=== PATIENT | male | born 1965 | race Caucasian/White ===

== ENCOUNTER 2024-07-24 11:32 | Observation (INO) | payer OTHER ==
[2024-07-24 12:00] LABS: Absolute Neutrophil Ct (ANC) 5.18 x10^3/uL (1.78-5.38); BASOPHIL % 0.7 % (0.2-1.2); Basophil (Absolute #) 0.05 x10^3/uL (0.01-0.08); Eosinophil % 1.6 % (0.8-7.0); Eosinophil (Absolute #) 0.11 x10^3/uL (0.04-0.54); Hematocrit 35.4 % (40.1-51.0); Hemoglobin 11.4 g/dL (13.7-17.5); IMMATURE GRAN # 0.02 x10^3u/L (0.001-0.031); IMMATURE GRAN % 0.3 % (0.001-0.429); Lymphocyte (Absolute #) 1.05 x10^3/uL (1.32-3.57); Lymphocytes % 15.3 % (21.8-53.1); Mean Cell Volume 93.2 fL (79.0-92.2); Mean Corpuscular Hgb Concent. 32.2 g/dL (32.3-36.5); Mean Platelet Volume 10.6 fL (9.4-12.4); Monocyte (Absolute #) 0.47 x10^3/uL (0.30-0.82); Monocytes % 6.8 % (5.3-12.2); Neutrophil % 75.3 % (34.0-67.9); Platelet Count 199 x10^3/uL (163-337); Red Cell Distribution Width 13.9 % (11.6-14.4); White Blood Count 6.9 x10^3/uL (4.23-9.07)
--- NOTE | 2024-07-24 12:08 | ERPHSYRPT ---
- History of Present Illness Time Seen by Provider: 07/24/24 12:00 Source: patient Exam Limitations: no limitations Patient Subjective Stated Complaint: PT states "I have been short of breath for a couple weeks. IT feels like my lungs are filling with fluid." Triage Nursing Assessment: Pt presented alert and oriented X 3, skin pwd. PT ambulates with an upright steady gait, able to speak in clear full sentencs. PT gets short of breath when he speaks or ambulates. Physician History: 59-year-old male with a history of CHF presents to our ED for evaluation of progressive shortness of breath that has been ongoing for approximately 1 week. No chest pain. No nausea no vomiting no diaphoresis. No trauma no fever. He does not know the name of his plc engineer. However reports his plc engineer is at [facility]. Patient symptoms have been progressive. Symptoms are moderate in intensity. Shortness of breath worse with exertion. Patient believes he is experiencing a COPD exacerbation. Patient otherwise feels well. He voices no other complaints or concerns at this time. Portions of this note were created with voice recognition technology. There may be grammatical, spelling, punctuation or sound alike errors Timing/Duration: week(s) (1 week) Severity: moderate Modifying Factors: Improves With: nothing Associated Symptoms: shortness of breath, chest pain, No nausea, No vomiting, No fever, No syncope Allergies/Adverse Reactions: No Known Drug Allergies Allergy (Verified 07/24/24 11:39) Home Medications: No Reportable Medications [No Reported Medications] 07/24/24 [History] Hx Tetanus, Diphtheria Vaccination/Date Given: No Hx Influenza Vaccination/Date Given: No Hx Pneumococcal Vaccination/Date Given: No Immunizations Up to Date: No Travel Risk - International Travel Have you traveled outside of the country in past 3 weeks: No - Emerging Infectious Disease Are you exhibiting symptoms associated with any current EIDs: Yes Symptoms: Shortness of Breath - Review of Systems Constitutional: No Symptoms, No Fever, No Chills Eyes: No Symptoms Ears, Nose, & Throat: No Symptoms Respiratory: No Symptoms, No Cough, No Dyspnea Cardiac: No Symptoms, No Chest Pain, No Edema, No Syncope Abdominal/Gastrointestinal: No Symptoms, No Abdominal Pain, No Nausea, No Vomiting, No Diarrhea Genitourinary Symptoms: No Symptoms, No Dysuria Musculoskeletal: No Symptoms, No Back Pain, No Neck Pain Skin: No Symptoms, No Rash Neurological: No Symptoms, No Dizziness, No Focal Weakness, No Sensory Changes Psychological: No Symptoms Endocrine: No Symptoms Hematologic/Lymphatic: No Symptoms Immunological/Allergic: No Symptoms All Other Systems: Reviewed and Negative - Past Medical History Pertinent Past Medical History: Yes Neurological History: No Pertinent History ENT History: No Pertinent History Cardiac History: Arrhythmia, Other Respiratory History: No Pertinent History Endocrine Medical History: No Pertinent History Musculoskeletal History: Degenerative Disk Disease GI Medical History: No Pertinent History History: No Pertinent History Psycho-Social History: No Pertinent History Male Reproductive Disorders: No Pertinent History Other Medical History: chf - Past Surgical History Past Surgical History: Yes Other Surgical History: right knee. left leg - Social History Smoking Status: Current some day smoker How long have you smoked: years Exposure to second hand smoke: Yes Drug Use: none - Social Determinants of Health Will the patient participate in the screening: Yes Do you worry about a steady place to live?: No Do you have any problems with any of the following?: No known problems In the past 12 months,have you had to go without utilities?: Yes Transportation Issues: No Has anyone in your support network made you feel unsafe?: No Have you or anyone in your house had to go without enough: No - Nursing Vital Signs Nursing Vital Signs: Initial Vital Signs Pulse Rate 114 H 07/24/24 11:31 Respiratory Rate 23 07/24/24 11:31 Blood Pressure 107/75 07/24/24 11:31 O2 Sat by Pulse Oximetry 89 L 07/24/24 11:31 Pain Scale Pain Intensity 0 - Physical Exam General Appearance: no apparent distress, alert Eye Exam: PERRL/EOMI, eyes nml inspection Ears, Nose, Throat Exam: normal ENT inspection, moist mucous membranes Neck Exam: normal inspection, non-tender, supple, full range of motion Respiratory Exam: normal breath sounds, respiratory distress, airway intact, diminished breath sounds, other (Tachypnea) Cardiovascular Exam: regular rate/rhythm, normal heart sounds, normal peripheral pulses Gastrointestinal/Abdomen Exam: soft, normal bowel sounds, No tenderness, No mass Back Exam: normal inspection, normal range of motion, No CVA tenderness, No vertebral tenderness Extremity Exam: normal inspection, normal range of motion, pelvis stable, pedal edema (1+ pitting edema) Neurologic Exam: alert, oriented x 3, cooperative, normal mood/affect, sensation nml, No motor deficits Skin Exam: normal color, warm, dry, No rash Lymphatic Exam: No adenopathy SpO2 Interpretation: normal SpO2: 97 O2 Delivery: Room Air - Course Nursing assessment & vital signs reviewed: Yes EKG Interpreted by Me: RATE ([id number]), Sinus Tach, NORMAL AXIS, NORMAL INTERVALS, NORMAL QRS - Radiology Exams Chest X-ray Interpretation: Teleradiologist Report (Pulmonary edema) Ordered Tests: Active Orders 24 hr Category Date Time Status Postal Worker STAT Care 07/24/24 11:51 Active EKG-ER Only STAT Care 07/24/24 11:51 Active IV Insertion STAT Care 07/24/24 11:51 Active Pulse Oximetry (ED) STAT Care 07/24/24 11:51 Active CHEST 1 VIEW (PORTABLE) Stat Exams 07/24/24 11:57 Completed CHEST WITH CONTRAST [CT] Stat Exams 07/24/24 12:40 Completed BLOOD CULTURE Stat Lab 07/24/24 15:04 Received CBC W DIFF Stat Lab 07/24/24 11:59 Completed CMP Stat Lab 07/24/24 11:59 Completed D-DIMER QUANTITATIVE Stat Lab 07/24/24 11:59 Completed NT PRO BNPII Stat Lab 07/24/24 11:59 Completed TROPONIN Q4H Lab 07/24/24 11:59 Completed TROPONIN Q4H Lab 07/24/24 14:40 Completed TROPONIN Q4H Lab 07/24/24 20:00 Ordered Respiratory Therapy Assessment DAILY RT 07/24/24 14:58 Completed Transfer Order Routine Transfer 07/24/24 Ordered Medication Summary Discontinued Medications Generic Name Dose Route Start Last Admin Trade Name Brennanq PRN Reason Stop Dose Admin Albuterol Sulfate 2.5 mg 07/24/24 14:46 07/24/24 14:57 Albuterol Sulfate 2.5 Mg/3 Ml Neb IH 07/24/24 14:47 2.5 mg STAT ONE Administration Albuterol Sulfate Confirm 07/24/24 14:53 Albuterol Sulfate 2.5 Mg/3 Ml Neb Administered 07/24/24 14:54 Dose 2.5 mg IH .STK-MED ONE Methylprednisolone Sodium 0 mg 07/24/24 14:46 07/24/24 14:54 Succinate 125 mg/ Sterile IV 07/24/24 14:47 125 mg Water 2 ml STAT ONE Administration Furosemide 20 mg 07/24/24 12:39 07/24/24 12:57 Furosemide 20 Mg/Vial IV 07/24/24 12:40 20 mg ONCE STA Administration Furosemide Confirm 07/24/24 12:56 Furosemide 20 Mg/Vial Administered 07/24/24 12:57 Dose 20 mg .ROUTE .STK-MED ONE Ceftriaxone Sodium 1 gm in 100 mls @ 200 mls/hr 07/24/24 14:46 07/24/24 15:29 Rocephin 1 Gm / 100 Ml Nacl IV 07/24/24 15:15 Infused STAT ONE Infusion Azithromycin 500 mg in 250 mls @ 250 mls/hr 07/24/24 14:46 07/24/24 15:39 Zithromax 500 Mg/ 250 Ml Nacl Premix IV 07/24/24 15:45 250 ml/hr STAT STA 250 mls/hr Administration Ceftriaxone Sodium Confirm 07/24/24 14:53 Rocephin 1 Gm / 100 Ml Nacl Administered 07/24/24 14:54 Dose 1 gm in 100 mls @ ud IV .STK-MED ONE Azithromycin Confirm 07/24/24 15:36 Zithromax 500 Mg/ 250 Ml Nacl Premix Administered 07/24/24 15:37 Dose 500 mg in 250 mls @ ud IV .STK-MED ONE Methylprednisolone Sodium Succinate Confirm 07/24/24 14:53 Methylprednis Sod Succ 125 Mg/2 Ml Vial Administered 07/24/24 14:54 Dose 125 mg .ROUTE .STK-MED ONE Sterile Water Confirm 07/24/24 14:53 Water For Injection,Sterile 10 Ml Vial Administered 07/24/24 14:54 Dose 10 ml IJ .STK-MED ONE Lab/Rad Data: Laboratory Result Diagrams 07/24/24 11:59 07/24/24 11:59 Laboratory Results 07/24/24 07/24/24 07/24/24 Range/Units 14:40 11:59 11:59 WBC (4.23-9.07) x10^3/uL RBC (4.63-6.08) x10^6/uL Hgb (13.7-17.5) g/dL Hct (40.1-51.0) % MCV (79.0-92.2) fL MCH (25.7-32.2) pg MCHC (32.3-36.5) g/dL RDW (11.6-14.4) % Plt Count (163-337) x10^3/uL MPV (9.4-12.4) fL Gran % (34.0-67.9) % Immature Gran % (Auto) (0.001-0.429) % Nucleat RBC Rel Count (0.00-0.2) % Eos # (Auto) (0.04-0.54) x10^3/uL Immature Gran # (Auto) (0.001-0.031) x10^3u/L Absolute Lymphs (auto) (1.32-3.57) x10^3/uL Absolute Monos (auto) (0.30-0.82) x10^3/uL Absolute Nucleated RBC (0.00-0.012) x10^3u/L Lymphocytes % (21.8-53.1) % Monocytes % (5.3-12.2) % Eosinophils % (0.8-7.0) % Basophils % (0.2-1.2) % Absolute Granulocytes (1.78-5.38) x10^3/uL Basophils # (0.01-0.08) x10^3/uL D-Dimer 1.50 H* (0.0-0.50) mg/L Sodium (135-145) mmol/L Potassium (3.5-5.1) mmol/L Chloride (98-107) mmol/L Carbon Dioxide (22-30) mmol/L Anion Gap (5-15) MEQ/L BUN (9-20) mg/dL Creatinine (0.66-1.25) mg/dL Estimated GFR ML/MIN Glucose (74-106) mg/dL Calcium (8.4-10.2) mg/dL Total Bilirubin (0.2-1.3) mg/dL AST (17-59) U/L ALT (0-50) U/L Alkaline Phosphatase (38-126) U/L Troponin I 0.045 H* 0.038 H* (0.000-0.033) ng/mL NT-Pro-B Natriuret Pep 7510 (<300) pg/mL Serum Total Protein (6.3-8.2) g/dL Albumin (3.5-5.0) g/dL 07/24/24 07/24/24 Range/Units 11:59 11:59 WBC 6.9 (4.23-9.07) x10^3/uL RBC 3.80 L (4.63-6.08) x10^6/uL Hgb 11.4 L (13.7-17.5) g/dL Hct 35.4 L (40.1-51.0) % MCV 93.2 H (79.0-92.2) fL MCH 30.0 (25.7-32.2) pg MCHC 32.2 L (32.3-36.5) g/dL RDW 13.9 (11.6-14.4) % Plt Count 199 (163-337) x10^3/uL MPV 10.6 (9.4-12.4) fL Gran % 75.3 H (34.0-67.9) % Immature Gran % (Auto) 0.3 (0.001-0.429) % Nucleat RBC Rel Count 0.0 (0.00-0.2) % Eos # (Auto) 0.11 (0.04-0.54) x10^3/uL Immature Gran # (Auto) 0.02 (0.001-0.031) x10^3u/L Absolute Lymphs (auto) 1.05 L (1.32-3.57) x10^3/uL Absolute Monos (auto) 0.47 (0.30-0.82) x10^3/uL Absolute Nucleated RBC 0.00 (0.00-0.012) x10^3u/L Lymphocytes % 15.3 L (21.8-53.1) % Monocytes % 6.8 (5.3-12.2) % Eosinophils % 1.6 (0.8-7.0) % Basophils % 0.7 (0.2-1.2) % Absolute Granulocytes 5.18 (1.78-5.38) x10^3/uL Basophils # 0.05 (0.01-0.08) x10^3/uL D-Dimer (0.0-0.50) mg/L Sodium 140 (135-145) mmol/L Potassium 4.5 (3.5-5.1) mmol/L Chloride 111 H (98-107) mmol/L Carbon Dioxide 24 (22-30) mmol/L Anion Gap 9.5 (5-15) MEQ/L BUN 16 (9-20) mg/dL Creatinine 0.99 (0.66-1.25) mg/dL Estimated GFR 88.3 ML/MIN Glucose 122 H (74-106) mg/dL Calcium 8.8 (8.4-10.2) mg/dL Total Bilirubin 0.40 (0.2-1.3) mg/dL AST 77 H (17-59) U/L ALT 79 H (0-50) U/L Alkaline Phosphatase 69 (38-126) U/L Troponin I (0.000-0.033) ng/mL NT-Pro-B Natriuret Pep (<300) pg/mL Serum Total Protein 6.0 L (6.3-8.2) g/dL Albumin 3.5 (3.5-5.0) g/dL - Progress Progress: improved Progress Note: 51-year-old male history of CHF presents to our ED for evaluation of progressive shortness of breath. Physical exam reveals a tachycardia of 116. Mild tachypnea. Diminished breath sounds bilaterally. Chest x-ray reveals pulmonary edema. Troponin 0.038 and 0.045. Patient refused COVID testing. D-dimer positive. CTA chest reveals pneumonia. Blood cultures obtained. Antibiotics administered. Breathing treatment administered as well. BNP elevated at 7000. Patient received Lasix IV. Patient reassessed. Tachypnea resolved he is breathing much easier. Patient will require hospitalization for further evaluation and treatment. Plan of care discussed with patient. He agrees to admission to [facility] for further evaluation and treatment. Management discussed with hospitalist Dr. Bedoya who accepts admission to observation at 3:40 PM. Blood pressure was slightly low at 101. Lasix administered however we held nitroglycerin. Portions of this note were created with voice recognition technology. There may be grammatical, spelling, punctuation or sound alike errors Complexity of problem addressed is moderate acute complicated. No critical care time. Complex of data reviewed and analyzed is extensive. Test ordered test reviewed results analyzed and correlated clinically with history and physical exam. Management discussed with hospitalist who accepts admission to observation. Risk of complication and or risk of morbidity/mortality of patient management is high. Patient requires hospitalization for further evaluation and treatment. Vital stable. Time spent admit patient approximately 15 minutes. Plan of care established for shared decision making. No social determinants of health present to impede follow-up. Portions of this note were created with voice recognition technology. There may be grammatical, spelling, punctuation or sound alike errors 07/24/24 15:48 07/24/24 15:54 Will see patient in: other ([place] at 3:40p) Counseled pt/family regarding: lab results, diagnosis, rad results - Departure Departure Disposition: Observation Clinical Impression: SOB (shortness of breath), Pulmonary edema, CHF (congestive heart failure), Tachycardia, Elevated troponin, Pneumonia Condition: Stable Critical Care Time: No Referrals: DOCTOR,NO FAMILY [Primary Care Provider] - Follow up/PCP as directed Instructions: Heart Failure
[2024-07-24 12:13] LABS: ALBUMIN 3.5 g/dL (3.5-5.0); ANION GAP 9.5 MEQ/L (5-15); BILIRUBIN,TOTAL 0.4 mg/dL (0.2-1.3); Calcium 8.8 mg/dL (8.4-10.2); Creatinine 1 0.99 mg/dL (0.66-1.25); EST GLOMERULAR FILTRATION RATE 88.3 ML/MIN; Potassium 4.5 mmol/L (3.5-5.1)
--- NOTE | 2024-07-24 12:23 | XRAY ---
Indication: Short of breath. Comparison: None Portable chest demonstrates mild pulmonary edema without focal infiltrate, consolidation, or large effusion. Heart not enlarged. Bony thorax intact with osteopenia and mild degenerative changes.
[2024-07-24 12:56] LABS: TROPONIN 0.038 ng/mL (0.000-0.033)
[2024-07-24] MEDS ORDERED: Lasix 20 MG/2 ML ONE (12:56)
[2024-07-24] MEDS: Lasix 20 MG/2 ML IV STA (12:57)
--- NOTE | 2024-07-24 14:45 | XRAY ---
Indication: Short of breath. Tachycardia. Elevated d-dimer. Multiple contiguous axial images obtained through the chest using 80 cc Isovue 370 contrast and PE protocol. Comparison: None Good opacification pulmonary arteries including lobar and segmental branches. No pulmonary embolus. Heart not enlarged. Aorta is normal in course and caliber. No pathologic mediastinal/hilar lymphadenopathy. Lungs demonstrates mild diffuse bilateral patchy groundglass airspace disease with small bilateral effusions and bibasilar compressive atelectasis. Bony thorax intact with mild degenerative changes throughout the spine. Limited upper abdomen is unremarkable. Impression: 1. Negative pulmonary embolus. 2. Mild diffuse bilateral patchy groundglass airspace disease with bilateral effusions.
[2024-07-24] MEDS ORDERED: solu-MEDROL ONE (14:53)
[2024-07-24] MEDS ORDERED: Sterile H2O 10 ml IJ ONE (14:53)
[2024-07-24] MEDS ORDERED: PROVENTIL 2.5 MG/3 ML NEB IH ONE (14:53)
[2024-07-24] MEDS ORDERED: ROCEPHIN 1 GM / 100 ML NaCl 1 GM/100 ML IVPB IV ONE (14:53)
[2024-07-24] MEDS: solu-MEDROL 125 MG, Sterile H2O 10 ml 2 ML IV ONE (14:54)
[2024-07-24] MEDS: ROCEPHIN 1 GM / 100 ML NaCl 1 GM/100 ML IVPB IV ONE (14:56)
[2024-07-24] MEDS: PROVENTIL 2.5 MG/3 ML NEB IH ONE (14:57)
[2024-07-24] MEDS ORDERED: Zithromax 500 MG/ 250 ML NaCl Premix 500 MG/250 ML IVPB IV ONE (15:36)
[2024-07-24] MEDS: Zithromax 500 MG/ 250 ML NaCl Premix 500 MG/250 ML IVPB IV STA (15:39)
--- NOTE | 2024-07-24 16:18 | PCM.HP ---
History of Present Illness - Chief Complaint Chief Complaint: Pneumonia, CHF Date: 07/24/24 History of Present Illness: Mr. Mejia is a 59 year old male with a pmhx of tobacco abuse, AFIB (s/p ablation), DDD, and CHF who presented to ED 07/24/24 with complaints of progr essive shortness of breath, chest congestion, productive cough with blood-tinged sputum, and wheezing. Onset about two weeks ago. He also reports left sided chest pressure 4/10 on numerical pain scale. No radiation. No associated symptoms. No relieving/aggravating factors. Denies fever,abdominal pain, DUVALL, dizziness, N/V/D. Upon arrival to ED, patient tachypneic, tachycardic, and hypoxic. EKG with sinus tachycardia HR at 116. CT chest demonstrates mild diffuse bilateral patchy groundglass airspace disease with bilateral effusions. Negative for PE. Lab findings remarkable for elevated ddimer (CTA negative for PE), macrocytic anemia with hgb at 11.4, elevated AST and ALT, and uptrending tropinin I 0.045>0.038. BNP 7510. Patient admitted for CHF and COPD exacerbation and pneumonia. Given ceftriaxone,azithromycin, lasix, and solumedrol in ED. Plan for continued diuresis, abx, and steroids. - Review of Systems Constitutional: Weakness Eyes: No Symptoms Respiratory: Short Of Breath, Wheezing Cardiac: Chest Pain, Edema (BLE 2+Pitting ) Abdominal/Gastrointestinal: No Symptoms Genitourinary Symptoms: No Symptoms Musculoskeletal: No Symptoms Skin: No Symptoms Neurological: No Symptoms Psychological: No Symptoms Endocrine: No Symptoms Hematologic/Lymphatic: No Symptoms Immunological/Allergic: No Symptoms Medications & Allergies Home Medications: Home Medication List No Reportable Medications [No Reported Medications] 07/24/24 [History Confirmed 07/24/24] Allergies/Adverse Reactions: Allergies Allergy/AdvReac Type Severity Reaction Status Date / Time No Known Drug Allergies Allergy Verified 07/24/24 11:39 - Past Medical History Past Medical History: Yes Neurological History: No Pertinent History ENT History: No Pertinent History Cardiac History: Arrhythmia (AFIB), Congestive Heart Failure, Other Respiratory History: No Pertinent History Endocrine Medical History: No Pertinent History Musculoskelatal History: Degenerative Disk Disease GI Medical History: No Pertinent History History: No Pertinent History Pyscho-Social History: No Pertinent History Male Reproductive Disorders: No Pertinent History Comment: chf - Past Surgical History Past Surgical History: Yes Cardiac History: Other (cardiac ablation - cardioversion x 2 both in 2022) Other Surgical History: right knee. left leg - Social History Smoking Status: Current some day smoker How long have you smoked: years Exposure to second hand smoke: Yes Alcohol: Occasionally Drug Use: none - Social Determinants of Health Will the patient participate in the screening: Yes Do you worry about a steady place to live?: No Do you have any problems with any of the following?: No known problems In the past 12 months,have you had to go without utilities?: Yes Have you or anyone in your house had to go without enough: No Transportation Issues: No Has anyone in your support network made you feel unsafe?: No - Physical Exam Vital Signs: Vital Signs - 24 hr Temp Pulse Resp BP BP Pulse Ox 07/24/24 15:54 97 07/24/24 15:30 108 H 19 103/66 07/24/24 15:15 115 H 27 H 103/81 07/24/24 15:00 113 H 23 100/72 07/24/24 14:59 98 H 16 98 07/24/24 14:46 104 H 16 104/80 07/24/24 14:30 104 H 13 96/73 99 07/24/24 14:15 112 H 24 98/75 98 07/24/24 14:09 116 H 30 H 99/66 98 07/24/24 14:08 116 H 19 07/24/24 13:45 90/69 07/24/24 13:30 120 H 25 H 96/57 07/24/24 13:15 121 H 23 98/83 07/24/24 13:01 121 H 27 H 106/83 07/24/24 12:45 119 H 25 H 103/80 07/24/24 12:30 121 H 19 102/78 96 07/24/24 12:15 118 H 26 H 105/73 95 07/24/24 12:00 119 H 15 99/74 97 07/24/24 11:46 115 H 23 101/76 97 07/24/24 11:33 97.8 F 117 H 24 107/75 96 07/24/24 11:31 114 H 23 107/75 89 L General Appearance: no apparent distress Neurologic Exam: alert, oriented x 3, cooperative Eye Exam: PERRL/EOMI Ears, Nose, Throat Exam: normal ENT inspection Neck Exam: normal inspection Respiratory Exam: crackles/rales, wheezing Cardiovascular Exam: tachycardia Gastrointestinal/Abdomen Exam: soft, normal bowel sounds Rectal Exam: deferred Back Exam: normal inspection Extremity Exam: swelling (BLE 2+ pitting edema) Results - Labs Lab/Micro Results: Lab Results-Last 24 Hours 07/24/24 07/24/24 07/24/24 Range/Units 11:59 11:59 11:59 WBC 6.9 (4.23-9.07) x10^3/uL RBC 3.80 L (4.63-6.08) x10^6/uL Hgb 11.4 L (13.7-17.5) g/dL Hct 35.4 L (40.1-51.0) % MCV 93.2 H (79.0-92.2) fL MCH 30.0 (25.7-32.2) pg MCHC 32.2 L (32.3-36.5) g/dL RDW 13.9 (11.6-14.4) % Plt Count 199 (163-337) x10^3/uL MPV 10.6 (9.4-12.4) fL Gran % 75.3 H (34.0-67.9) % Immature Gran % (Auto) 0.3 (0.001-0.429) % Nucleat RBC Rel Count 0.0 (0.00-0.2) % Eos # (Auto) 0.11 (0.04-0.54) x10^3/uL Immature Gran # (Auto) 0.02 (0.001-0.031) x10^3u/L Absolute Lymphs (auto) 1.05 L (1.32-3.57) x10^3/uL Absolute Monos (auto) 0.47 (0.30-0.82) x10^3/uL Absolute Nucleated RBC 0.00 (0.00-0.012) x10^3u/L Lymphocytes % 15.3 L (21.8-53.1) % Monocytes % 6.8 (5.3-12.2) % Eosinophils % 1.6 (0.8-7.0) % Basophils % 0.7 (0.2-1.2) % Absolute Granulocytes 5.18 (1.78-5.38) x10^3/uL Basophils # 0.05 (0.01-0.08) x10^3/uL D-Dimer 1.50 H* (0.0-0.50) mg/L Sodium 140 (135-145) mmol/L Potassium 4.5 (3.5-5.1) mmol/L Chloride 111 H (98-107) mmol/L Carbon Dioxide 24 (22-30) mmol/L Anion Gap 9.5 (5-15) MEQ/L BUN 16 (9-20) mg/dL Creatinine 0.99 (0.66-1.25) mg/dL Estimated GFR 88.3 ML/MIN Glucose 122 H (74-106) mg/dL Calcium 8.8 (8.4-10.2) mg/dL Total Bilirubin 0.40 (0.2-1.3) mg/dL AST 77 H (17-59) U/L ALT 79 H (0-50) U/L Alkaline Phosphatase 69 (38-126) U/L Troponin I (0.000-0.033) ng/mL NT-Pro-B Natriuret Pep (<300) pg/mL Serum Total Protein 6.0 L (6.3-8.2) g/dL Albumin 3.5 (3.5-5.0) g/dL 07/24/24 07/24/24 Range/Units 11:59 14:40 WBC (4.23-9.07) x10^3/uL RBC (4.63-6.08) x10^6/uL Hgb (13.7-17.5) g/dL Hct (40.1-51.0) % MCV (79.0-92.2) fL MCH (25.7-32.2) pg MCHC (32.3-36.5) g/dL RDW (11.6-14.4) % Plt Count (163-337) x10^3/uL MPV (9.4-12.4) fL Gran % (34.0-67.9) % Immature Gran % (Auto) (0.001-0.429) % Nucleat RBC Rel Count (0.00-0.2) % Eos # (Auto) (0.04-0.54) x10^3/uL Immature Gran # (Auto) (0.001-0.031) x10^3u/L Absolute Lymphs (auto) (1.32-3.57) x10^3/uL Absolute Monos (auto) (0.30-0.82) x10^3/uL Absolute Nucleated RBC (0.00-0.012) x10^3u/L Lymphocytes % (21.8-53.1) % Monocytes % (5.3-12.2) % Eosinophils % (0.8-7.0) % Basophils % (0.2-1.2) % Absolute Granulocytes (1.78-5.38) x10^3/uL Basophils # (0.01-0.08) x10^3/uL D-Dimer (0.0-0.50) mg/L Sodium (135-145) mmol/L Potassium (3.5-5.1) mmol/L Chloride (98-107) mmol/L Carbon Dioxide (22-30) mmol/L Anion Gap (5-15) MEQ/L BUN (9-20) mg/dL Creatinine (0.66-1.25) mg/dL Estimated GFR ML/MIN Glucose (74-106) mg/dL Calcium (8.4-10.2) mg/dL Total Bilirubin (0.2-1.3) mg/dL AST (17-59) U/L ALT (0-50) U/L Alkaline Phosphatase (38-126) U/L Troponin I 0.038 H* 0.045 H* (0.000-0.033) ng/mL NT-Pro-B Natriuret Pep 7510 (<300) pg/mL Serum Total Protein (6.3-8.2) g/dL Albumin (3.5-5.0) g/dL - Radiology Impressions Radiology Exams & Impressions: Radiology Procedures Category Date Time Status CHEST 1 VIEW (PORTABLE) Stat Exams 07/24/24 11:57 Completed CHEST WITH CONTRAST [CT] Stat Exams 07/24/24 12:40 Completed Assessment/Plan (1) Pneumonia Current Visit: Yes Status: Acute Assessment & Plan: -CT with mild diffuse bilateral patchy groundglass airspace disease with bilateral effusions. Negative for PE -Supplemental oxygen with goal spo2 > 91% -baseline RA - currently RA -RT eval -DuoNebs/INH-solumedrol -ceftriaxone and azithromycin started in ED, will continue -WBC WNL -procal -blood cultures pending -pt refused respiratory viral panel Code(s): J18.9 - PNEUMONIA, UNSPECIFIED ORGANISM (2) Acute respiratory failure with hypoxia Current Visit: Yes Status: Acute Assessment & Plan: -2/2 to pneumonia - see plan above Code(s): J96.01 - ACUTE RESPIRATORY FAILURE WITH HYPOXIA (3) Chest pain Current Visit: Yes Status: Acute Assessment & Plan: -EKG with sinus tachycardia -trops reviewed and uptrending -continue series -echo -repeat ekg in a.m. 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 -No echo on file - will obtain -BNP 7510 -Lasix 40mg bid -Daily weights/ elevate HOB -Strict I&O -optimize electrolytes -Cardiology consult- appreciate recs -Supplemental oxygen with goal spo2 > 91%- baseline RA Code(s): I50.9 - HEART FAILURE, UNSPECIFIED (5) Afib Current Visit: Yes Status: Acute Assessment & Plan: -s/p cardiac ablation -EKG with sinus tachycardia HR 112 -cardiology consult Code(s): I48.91 - UNSPECIFIED ATRIAL FIBRILLATION (6) Smoker Current Visit: Yes Status: Acute Assessment & Plan: -Advised cessation - nicotine patch Code(s): F17.200 - NICOTINE DEPENDENCE, UNSPECIFIED, UNCOMPLICATED (7) Elevated d-dimer Current Visit: Yes Status: Acute Assessment & Plan: -CTA negative for PE- may be secondary to CHF/COPD exacerbation Code(s): R79.89 - OTHER SPECIFIED ABNORMAL FINDINGS OF BLOOD CHEMISTRY (8) Anemia Current Visit: Yes Status: Acute Assessment & Plan: -Iron studies -Hgb reviewed at 11.4- will monitor Code(s): D64.9 - ANEMIA, UNSPECIFIED (9) Elevated LFTs Current Visit: Yes Status: Acute Assessment & Plan: -mild - monitor Code(s): R79.89 - OTHER SPECIFIED ABNORMAL FINDINGS OF BLOOD CHEMISTRY (10) Elevated troponin Current Visit: Yes Status: Acute Assessment & Plan: -Cardiology consulted - appreciate recs -Trops reviewed with uptrend VTE: lovenox PPI: protonix Dispo: 1-2 days Code(s): R79.89 - OTHER SPECIFIED ABNORMAL FINDINGS OF BLOOD CHEMISTRY Telemedicine Encounter - Telemedicine Encounter Telemedicine Encounter: "The entirety of this encounter was performed via Telemedicine" This visit was performed using real-time audio and video connection between my location and thepatients locationwith the assistance of a surrogateat the patients location. Written or verbal consent was obtained from the patient/guardian to perform this visit [facility]. Any patient questions regarding the telemedicine interaction were answered.
[2024-07-24] MEDS ORDERED: TYLENOL 325 MG PO PRN (17:00)
[2024-07-24] MEDS ORDERED: Xopenex 1.25 MG/0.5 ML UD NEBULE IH PRN (17:00)
[2024-07-24 17:29] LABS: Iron 37 ug/dL (49-181); Iron Saturation 11 % (20-39); TIBC 326 ug/dL (261-497)
[2024-07-24 18:29] LABS: Ferritin 43.1 ng/mL (17.9-464); Folate (Folic Acid) 10.4 ng/mL (2.76 - >20); TSH, 3RD Generation 0.807 mIU/L (0.470-4.680)
[2024-07-24] MEDS: Nicoderm CQ 21 MG TOP SCH (18:56)
[2024-07-24] MEDS: Lasix 40 MG/4 ML IV SCH (18:56)
[2024-07-24] MEDS: DELTASONE 20 MG PO SCH (21:29)
[2024-07-25 04:41] LABS: Absolute Neutrophil Ct (ANC) 10.63 x10^3/uL (1.78-5.38); Basophil (Absolute #) 0 x10^3/uL (0.01-0.08); Eosinophil (Absolute #) 0 x10^3/uL (0.04-0.54); Hemoglobin 12.7 g/dL (13.7-17.5); IMMATURE GRAN # 0.04 x10^3u/L (0.001-0.031); IMMATURE GRAN % 0.4 % (0.001-0.429); Lymphocyte (Absolute #) 0.44 x10^3/uL (1.32-3.57); Lymphocytes % 3.9 % (21.8-53.1); Mean Cell Volume 93.1 fL (79.0-92.2); Mean Corpuscular Hemoglobin 30.3 pg (25.7-32.2); Mean Corpuscular Hgb Concent. 32.6 g/dL (32.3-36.5); Mean Platelet Volume 10.4 fL (9.4-12.4); Monocyte (Absolute #) 0.27 x10^3/uL (0.30-0.82); Monocytes % 2.4 % (5.3-12.2); Neutrophil % 93.3 % (34.0-67.9); Platelet Count 232 x10^3/uL (163-337); Red Blood Count 4.19 x10^6/uL (4.63-6.08); Red Cell Distribution Width 13.7 % (11.6-14.4); White Blood Count 11.4 x10^3/uL (4.23-9.07)
[2024-07-25] MEDS ORDERED: Lasix 40 MG/4 ML ONE (05:00)
[2024-07-25 05:12] LABS: ANION GAP 10.7 MEQ/L (5-15); BILIRUBIN,TOTAL 0.6 mg/dL (0.2-1.3); Calcium 9.3 mg/dL (8.4-10.2); Creatinine 1 1.17 mg/dL (0.66-1.25); EST GLOMERULAR FILTRATION RATE 72.3 ML/MIN; Potassium 4.7 mmol/L (3.5-5.1)
--- NOTE | 2024-07-25 05:29 | PCM.NOTE ---
Date and Time: 07/25/24 0525 Subjective Assessment: HPI: Mr. Mejia is a 59 year old male with a pmhx of tobacco abuse, AFIB (s/p ablation), DDD, and CHF who presented to ED 07/24/24 with complaints of progressive shortness of breath, chest congestion, productive cough with blood- tinged sputum, and wheezing. Onset about two weeks ago. He also reports left s ided chest pressure 4/10 on numerical pain scale. No radiation. No associated symptoms. No relieving/aggravating factors. Denies fever,abdominal pain, DUVALL, dizziness, N/V/D. Upon arrival to ED, patient tachypneic, tachycardic, and hypoxic. EKG with sinus tachycardia HR at 116. CT chest demonstrates mild diffuse bilateral patchy groundglass airspace disease with bilateral effusions. Negative for PE. Lab findings remarkable for elevated ddimer (CTA negative for PE), macrocytic anemia with hgb at 11.4, elevated AST and ALT, and uptrending tropinin I 0.045>0.038. BNP 7510. Patient admitted for CHF and COPD exacerbation and pneumonia. Given ceftriaxone,azithromycin, lasix, and solumedrol in ED. Plan for continued diuresis, abx, and steroids. 07/25/24: Met with patient bedside. Endorses that he continues to have chest pressure. Dyspnea improved. On RA. HR > 110 consistently. Started digoxin. Cardiac consult pending. Echo pending. Plan for continued diuresis, abx, steroids. - Review of Systems Constitutional: Weakness Eyes: No Symptoms Ears, Nose, & Throat: No Symptoms Respiratory: No Symptoms Cardiac: Chest Pain Abdominal/Gastrointestinal: No Symptoms Genitourinary Symptoms: No Symptoms Musculoskeletal: No Symptoms Skin: No Symptoms Neurological: No Symptoms Psychological: No Symptoms Endocrine: No Symptoms Hematologic/Lymphatic: No Symptoms Immunological/Allergic: No Symptoms Objective Exam General Appearance: no apparent distress Neurologic Exam: alert, oriented x 3, cooperative Skin Exam: normal color Eye Exam: PERRL Ears, Nose, Throat Exam: normal ENT inspection Neck Exam: normal inspection Respiratory Exam: crackles/rales Cardiovascular Exam: tachycardia, irregular Gastrointestinal/Abdomen Exam: soft, normal bowel sounds Extremity Exam: normal inspection Back Exam: normal inspection Male Genitalia Exam: deferred Rectal Exam: deferred Objective Data Vital Signs: Vital Signs - 24 hr Temp Pulse Resp BP BP Pulse Ox 07/25/24 04:00 98.2 F 118 H 20 85/55 95 07/25/24 00:00 97.9 F 112 H 20 107/56 92 L 07/24/24 20:00 97.7 F 116 H 20 96/57 92 L 07/24/24 18:22 92 L 07/24/24 16:48 98.2 F 130 H 22 106/76 95 07/24/24 15:54 97 07/24/24 15:30 108 H 19 103/66 07/24/24 15:15 115 H 27 H 103/81 07/24/24 15:00 113 H 23 100/72 07/24/24 14:59 98 H 16 98 07/24/24 14:46 104 H 16 104/80 07/24/24 14:30 104 H 13 96/73 99 07/24/24 14:15 112 H 24 98/75 98 07/24/24 14:09 116 H 30 H 99/66 98 07/24/24 14:08 116 H 19 07/24/24 13:45 90/69 07/24/24 13:30 120 H 25 H 96/57 07/24/24 13:15 121 H 23 98/83 07/24/24 13:01 121 H 27 H 106/83 07/24/24 12:45 119 H 25 H 103/80 07/24/24 12:30 121 H 19 102/78 96 07/24/24 12:15 118 H 26 H 105/73 95 07/24/24 12:00 119 H 15 99/74 97 07/24/24 11:46 115 H 23 101/76 97 07/24/24 11:33 97.8 F 117 H 24 107/75 96 07/24/24 11:31 114 H 23 107/75 89 L Pain Assessment - Last Documented Pain Intensity 0 Intake and Output: Intake & Output 07/22/24 07/23/24 07/24/24 07/25/24 11:59 11:59 11:59 11:59 Intake Total 980 Balance 980 Weight 76.8 kg 76 kg Lab Results: Lab Results-Last 24 Hours 07/24/24 07/24/24 07/24/24 Range/Units 11:59 11:59 11:59 WBC 6.9 (4.23-9.07) x10^3/uL RBC 3.80 L (4.63-6.08) x10^6/uL Hgb 11.4 L (13.7-17.5) g/dL Hct 35.4 L (40.1-51.0) % MCV 93.2 H (79.0-92.2) fL MCH 30.0 (25.7-32.2) pg MCHC 32.2 L (32.3-36.5) g/dL RDW 13.9 (11.6-14.4) % Plt Count 199 (163-337) x10^3/uL MPV 10.6 (9.4-12.4) fL Gran % 75.3 H (34.0-67.9) % Immature Gran % (Auto) 0.3 (0.001-0.429) % Nucleat RBC Rel Count 0.0 (0.00-0.2) % Eos # (Auto) 0.11 (0.04-0.54) x10^3/uL Immature Gran # (Auto) 0.02 (0.001-0.031) x10^3u/L Absolute Lymphs (auto) 1.05 L (1.32-3.57) x10^3/uL Absolute Monos (auto) 0.47 (0.30-0.82) x10^3/uL Absolute Nucleated RBC 0.00 (0.00-0.012) x10^3u/L Lymphocytes % 15.3 L (21.8-53.1) % Monocytes % 6.8 (5.3-12.2) % Eosinophils % 1.6 (0.8-7.0) % Basophils % 0.7 (0.2-1.2) % Absolute Granulocytes 5.18 (1.78-5.38) x10^3/uL Basophils # 0.05 (0.01-0.08) x10^3/uL D-Dimer 1.50 H* (0.0-0.50) mg/L Sodium 140 (135-145) mmol/L Potassium 4.5 (3.5-5.1) mmol/L Chloride 111 H (98-107) mmol/L Carbon Dioxide 24 (22-30) mmol/L Anion Gap 9.5 (5-15) MEQ/L BUN 16 (9-20) mg/dL Creatinine 0.99 (0.66-1.25) mg/dL Estimated GFR 88.3 ML/MIN Glucose 122 H (74-106) mg/dL Calcium 8.8 (8.4-10.2) mg/dL Iron (49-181) ug/dL TIBC (261-497) ug/dL Iron Saturation (20-39) % Ferritin (17.9-464) ng/mL Total Bilirubin 0.40 (0.2-1.3) mg/dL AST 77 H (17-59) U/L ALT 79 H (0-50) U/L Alkaline Phosphatase 69 (38-126) U/L Troponin I (0.000-0.033) ng/mL NT-Pro-B Natriuret Pep (<300) pg/mL Serum Total Protein 6.0 L (6.3-8.2) g/dL Albumin 3.5 (3.5-5.0) g/dL Vitamin B12 (239-931) pg/mL Folic Acid (2.76 - >20) ng/mL Procalcitonin (0.030-0.080) ng/mL TSH 3rd Generation (0.470-4.680) mIU/L 07/24/24 07/24/24 07/24/24 Range/Units 11:59 11:59 11:59 WBC (4.23-9.07) x10^3/uL RBC (4.63-6.08) x10^6/uL Hgb (13.7-17.5) g/dL Hct (40.1-51.0) % MCV (79.0-92.2) fL MCH (25.7-32.2) pg MCHC (32.3-36.5) g/dL RDW (11.6-14.4) % Plt Count (163-337) x10^3/uL MPV (9.4-12.4) fL Gran % (34.0-67.9) % Immature Gran % (Auto) (0.001-0.429) % Nucleat RBC Rel Count (0.00-0.2) % Eos # (Auto) (0.04-0.54) x10^3/uL Immature Gran # (Auto) (0.001-0.031) x10^3u/L Absolute Lymphs (auto) (1.32-3.57) x10^3/uL Absolute Monos (auto) (0.30-0.82) x10^3/uL Absolute Nucleated RBC (0.00-0.012) x10^3u/L Lymphocytes % (21.8-53.1) % Monocytes % (5.3-12.2) % Eosinophils % (0.8-7.0) % Basophils % (0.2-1.2) % Absolute Granulocytes (1.78-5.38) x10^3/uL Basophils # (0.01-0.08) x10^3/uL D-Dimer (0.0-0.50) mg/L Sodium (135-145) mmol/L Potassium (3.5-5.1) mmol/L Chloride (98-107) mmol/L Carbon Dioxide (22-30) mmol/L Anion Gap (5-15) MEQ/L BUN (9-20) mg/dL Creatinine (0.66-1.25) mg/dL Estimated GFR ML/MIN Glucose (74-106) mg/dL Calcium (8.4-10.2) mg/dL Iron 37 L (49-181) ug/dL TIBC 326 (261-497) ug/dL Iron Saturation 11 L (20-39) % Ferritin 43.1 (17.9-464) ng/mL Total Bilirubin (0.2-1.3) mg/dL AST (17-59) U/L ALT (0-50) U/L Alkaline Phosphatase (38-126) U/L Troponin I 0.038 H* (0.000-0.033) ng/mL NT-Pro-B Natriuret Pep 7510 (<300) pg/mL Serum Total Protein (6.3-8.2) g/dL Albumin (3.5-5.0) g/dL Vitamin B12 474 (239-931) pg/mL Folic Acid 10.4 (2.76 - >20) ng/mL Procalcitonin (0.030-0.080) ng/mL TSH 3rd Generation 0.807 (0.470-4.680) mIU/L 07/24/24 07/24/24 07/24/24 Range/Units 11:59 14:40 20:14 WBC (4.23-9.07) x10^3/uL RBC (4.63-6.08) x10^6/uL Hgb (13.7-17.5) g/dL Hct (40.1-51.0) % MCV (79.0-92.2) fL MCH (25.7-32.2) pg MCHC (32.3-36.5) g/dL RDW (11.6-14.4) % Plt Count (163-337) x10^3/uL MPV (9.4-12.4) fL Gran % (34.0-67.9) % Immature Gran % (Auto) (0.001-0.429) % Nucleat RBC Rel Count (0.00-0.2) % Eos # (Auto) (0.04-0.54) x10^3/uL Immature Gran # (Auto) (0.001-0.031) x10^3u/L Absolute Lymphs (auto) (1.32-3.57) x10^3/uL Absolute Monos (auto) (0.30-0.82) x10^3/uL Absolute Nucleated RBC (0.00-0.012) x10^3u/L Lymphocytes % (21.8-53.1) % Monocytes % (5.3-12.2) % Eosinophils % (0.8-7.0) % Basophils % (0.2-1.2) % Absolute Granulocytes (1.78-5.38) x10^3/uL Basophils # (0.01-0.08) x10^3/uL D-Dimer (0.0-0.50) mg/L Sodium (135-145) mmol/L Potassium (3.5-5.1) mmol/L Chloride (98-107) mmol/L Carbon Dioxide (22-30) mmol/L Anion Gap (5-15) MEQ/L BUN (9-20) mg/dL Creatinine (0.66-1.25) mg/dL Estimated GFR ML/MIN Glucose (74-106) mg/dL Calcium (8.4-10.2) mg/dL Iron (49-181) ug/dL TIBC (261-497) ug/dL Iron Saturation (20-39) % Ferritin (17.9-464) ng/mL Total Bilirubin (0.2-1.3) mg/dL AST (17-59) U/L ALT (0-50) U/L Alkaline Phosphatase (38-126) U/L Troponin I 0.045 H* 0.037 H* (0.000-0.033) ng/mL NT-Pro-B Natriuret Pep (<300) pg/mL Serum Total Protein (6.3-8.2) g/dL Albumin (3.5-5.0) g/dL Vitamin B12 (239-931) pg/mL Folic Acid (2.76 - >20) ng/mL Procalcitonin 0.039 (0.030-0.080) ng/mL TSH 3rd Generation (0.470-4.680) mIU/L 07/25/24 07/25/24 Range/Units 04:34 04:34 WBC 11.4 H (4.23-9.07) x10^3/uL RBC 4.19 L (4.63-6.08) x10^6/uL Hgb 12.7 L (13.7-17.5) g/dL Hct 39.0 L (40.1-51.0) % MCV 93.1 H (79.0-92.2) fL MCH 30.3 (25.7-32.2) pg MCHC 32.6 (32.3-36.5) g/dL RDW 13.7 (11.6-14.4) % Plt Count 232 (163-337) x10^3/uL MPV 10.4 (9.4-12.4) fL Gran % 93.3 H (34.0-67.9) % Immature Gran % (Auto) 0.4 (0.001-0.429) % Nucleat RBC Rel Count 0.0 (0.00-0.2) % Eos # (Auto) 0 L (0.04-0.54) x10^3/uL Immature Gran # (Auto) 0.04 H (0.001-0.031) x10^3u/L Absolute Lymphs (auto) 0.44 L (1.32-3.57) x10^3/uL Absolute Monos (auto) 0.27 L (0.30-0.82) x10^3/uL Absolute Nucleated RBC 0.00 (0.00-0.012) x10^3u/L Lymphocytes % 3.9 L (21.8-53.1) % Monocytes % 2.4 L (5.3-12.2) % Eosinophils % 0.0 L (0.8-7.0) % Basophils % 0.0 L (0.2-1.2) % Absolute Granulocytes 10.63 H (1.78-5.38) x10^3/uL Basophils # 0 L (0.01-0.08) x10^3/uL D-Dimer (0.0-0.50) mg/L Sodium 138 (135-145) mmol/L Potassium 4.7 (3.5-5.1) mmol/L Chloride 105 (98-107) mmol/L Carbon Dioxide 27 (22-30) mmol/L Anion Gap 10.7 (5-15) MEQ/L BUN 25 H (9-20) mg/dL Creatinine 1.17 (0.66-1.25) mg/dL Estimated GFR 72.3 ML/MIN Glucose 167 H (74-106) mg/dL Calcium 9.3 (8.4-10.2) mg/dL Iron (49-181) ug/dL TIBC (261-497) ug/dL Iron Saturation (20-39) % Ferritin (17.9-464) ng/mL Total Bilirubin 0.60 (0.2-1.3) mg/dL AST 78 H (17-59) U/L ALT 95 H (0-50) U/L Alkaline Phosphatase 73 (38-126) U/L Troponin I (0.000-0.033) ng/mL NT-Pro-B Natriuret Pep (<300) pg/mL Serum Total Protein 7.0 (6.3-8.2) g/dL Albumin 4.0 (3.5-5.0) g/dL Vitamin B12 (239-931) pg/mL Folic Acid (2.76 - >20) ng/mL Procalcitonin (0.030-0.080) ng/mL TSH 3rd Generation (0.470-4.680) mIU/L Radiology Exams: Radiology Procedures Category Date Time Status CHEST 1 VIEW (PORTABLE) Stat Exams 07/24/24 11:57 Completed CHEST WITH CONTRAST [CT] Stat Exams 07/24/24 12:40 Completed ECHO W/2D AND DOPPLER [US] Urgent Exams 07/25/24 08:00 Ordered Multi-Disciplinary Progress Notes: Multi-Disciplinary Progress Notes 07/24/24 17:58 Respiratory Note by Janey Blackwell PT REFUSES TO TAKE NEBULIZER TX. STATES THEY OPEN HIS LUNGS UP AND WILL SPEAD ANY INFECTION HE HAS. DID INTRUCT PT ON ON BENIFITS OF NEB TX Initialized on 07/24/24 17:58 - END OF NOTE Assessment/Plan (1) Pneumonia Current Visit: Yes Status: Acute Assessment & Plan: -CT with mild diffuse bilateral patchy groundglass airspace disease with bilateral effusions. Negative for PE -Supplemental oxygen with goal spo2 > 91% -baseline RA - currently RA -RT eval -DuoNebs/INH-solumedrol -ceftriaxone and azithromycin started in ED, will continue -WBC WNL -procal -blood cultures pending -pt refused respiratory viral panel 07/25/24: -WBC reviewed at 11.4 - increase may be secondary to steroids -bcult pending -procal WNL -Pt refuses COVID/FLU/RSV testing Code(s): J18.9 - PNEUMONIA, UNSPECIFIED ORGANISM (2) Acute respiratory failure with hypoxia Current Visit: Yes Status: Acute Assessment & Plan: -2/2 to pneumonia - see plan above Code(s): J96.01 - ACUTE RESPIRATORY FAILURE WITH HYPOXIA (3) Chest pain Current Visit: Yes Status: Acute Assessment & Plan: -EKG with sinus tachycardia -trops reviewed and uptrending -continue series -echo -repeat ekg in a.m. -cardiology consulted 07/25/24: -Cardiology consult pending -echo pending Code(s): R07.9 - CHEST PAIN, UNSPECIFIED (4) CHF exacerbation Current Visit: Yes Status: Acute Assessment & Plan: -CT mild diffuse bilateral patchy groundglass airspace disease with bilateral effusions -PT states EF at 15%- non-compliant with home meds and life vest - currently does not take anything - does not know which water quality manager he has seen in the past -No echo on file - will obtain -BNP 7510 -Lasix 40mg bid -Daily weights/ elevate HOB -Strict I&O -optimize electrolytes -Cardiology consult- appreciate recs -Supplemental oxygen with goal spo2 > 91%- baseline RA Code(s): I50.9 - HEART FAILURE, UNSPECIFIED (5) Afib Current Visit: Yes Status: Acute Assessment & Plan: -s/p cardiac ablation -EKG with sinus tachycardia HR 112 -cardiology consult 07/25/24: -HR continues to be elevated - no home meds - start digoxin 0.25 mg -cardiology consult pending Code(s): I48.91 - UNSPECIFIED ATRIAL FIBRILLATION (6) Smoker Current Visit: Yes Status: Acute Assessment & Plan: -Advised cessation - nicotine patch Code(s): F17.200 - NICOTINE DEPENDENCE, UNSPECIFIED, UNCOMPLICATED (7) Elevated d-dimer Current Visit: Yes Status: Acute Assessment & Plan: -CTA negative for PE- may be secondary to CHF/COPD exacerbation Code(s): R79.89 - OTHER SPECIFIED ABNORMAL FINDINGS OF BLOOD CHEMISTRY (8) Anemia Current Visit: Yes Status: Acute Assessment & Plan: -Iron studies -Hgb reviewed at 11.4- will monitor 07/25/24: -iron sat at 11% - could use follow up with hematology for iron deficiency anemia - will start ferrous sulfate for now Code(s): D64.9 - ANEMIA, UNSPECIFIED (9) Elevated LFTs Current Visit: Yes Status: Acute Assessment & Plan: -mild - monitor Code(s): R79.89 - OTHER SPECIFIED ABNORMAL FINDINGS OF BLOOD CHEMISTRY (10) Elevated troponin Current Visit: Yes Status: Acute Assessment & Plan: -Cardiology consulted - appreciate recs -Trops reviewed with uptrend 07/25/24: -Troponin series 0.037<0.045>0.037 VTE: lovenox PPI: protonix Dispo: 1-2 days Code(s): J18.9 - PNEUMONIA, UNSPECIFIED ORGANISM (2) Acute respiratory failure with hypoxia Current Visit: Yes Status: Acute Code(s): J96.01 - ACUTE RESPIRATORY FAILURE WITH HYPOXIA (3) Chest pain Current Visit: Yes Status: Acute Code(s): R07.9 - CHEST PAIN, UNSPECIFIED (4) CHF exacerbation Current Visit: Yes Status: Acute Code(s): I50.9 - HEART FAILURE, UNSPECIFIED (5) Afib Current Visit: Yes Status: Acute Code(s): I48.91 - UNSPECIFIED ATRIAL FIBRILLATION (6) Smoker Current Visit: Yes Status: Acute Code(s): F17.200 - NICOTINE DEPENDENCE, UNSPECIFIED, UNCOMPLICATED (7) Elevated d-dimer Current Visit: Yes Status: Acute Code(s): R79.89 - OTHER SPECIFIED ABNORMAL FINDINGS OF BLOOD CHEMISTRY (8) Anemia Current Visit: Yes Status: Acute Code(s): D64.9 - ANEMIA, UNSPECIFIED (9) Elevated LFTs Current Visit: Yes Status: Acute Code(s): R79.89 - OTHER SPECIFIED ABNORMAL FINDINGS OF BLOOD CHEMISTRY (10) Elevated troponin Current Visit: Yes Status: Acute Code(s): R79.89 - OTHER SPECIFIED ABNORMAL FINDINGS OF BLOOD CHEMISTRY
[2024-07-25 06:16] LABS: Slide Review 1 YES
[2024-07-25] MEDS: FEOSOL 325 MG PO SCH (08:58)
[2024-07-25] MEDS: Protonix 40MG Tablet PO SCH (08:58)
[2024-07-25] MEDS: ENOXAPARIN SODIUM SQ SCH (08:59)
[2024-07-25] MEDS: ROCEPHIN 1 GM / 100 ML NaCl 1 GM/100 ML IVPB IV SCH (09:00)
[2024-07-25] MEDS: Zithromax 500 MG/ 250 ML NaCl Premix 500 MG/250 ML IVPB IV SCH (09:00)
[2024-07-25] MEDS: Nicoderm CQ 21 MG TOP SCH (09:02)
[2024-07-25] MEDS: Lanoxin 0.5 MG/2 ML INJECTION IV ONE (10:44)
--- NOTE | 2024-07-25 15:39 | PCM.CONS ---
History of Present Illness - Date of Consult Date of Encounter: 07/25/24 Consulting Liquor Runner: NEHEMIAS BOOKER MD Requesting Provider: Attending Provider: FLOYD ROBERTS MD Primary Care Provider: PCP: NO FAMILY DOCTOR Consent was: Given for this tele-med encounter - Consult Narrative Reason for Consult: Elevated troponin-I, shortness of breath, elevated HR HPI: Patient is a 59M who denies fevers, chills, nausea, vomiting, diarrhea, syncope, presyncope, dysphagia,odynophagia, orthopnea, paroxysmal nocturnal dyspnea, shortness of breath, chest pain, refluxsymptoms, belly pain, dysuria, hematuria, melena, hematochezia, seizures, paralysis, or other neurological changes. All other systems have been reviewed and are negative. cc:: The requesting physician will be sent a copy of the consult. - Past Medical History Past Medical History: Yes Neurological History: No Pertinent History ENT History: No Pertinent History Cardiac History: Arrhythmia (AFIB), Congestive Heart Failure, Other Respiratory History: No Pertinent History Endocrine Medical History: No Pertinent History Musculoskelatal History: Degenerative Disk Disease GI Medical History: No Pertinent History History: No Pertinent History Pyscho-Social History: No Pertinent History Male Reproductive Disorders: No Pertinent History Comment: chf - Past Surgical History Past Surgical History: Yes Neuro Surgical History: No Pertinent History Cardiac History: Other (cardiac ablation - cardioversion x 2 both in 2022) Respiratory Surgery: No Pertinent History GI Surgical History: No Pertinent History Genitourinary Surgical Hx: No Pertinent History Musculskeletal Surgical Hx: Orthopedic Surgery Male Surgical History: No Pertinent History Other Surgical History: right knee. left leg - Social History Smoking Status: Current some day smoker How long have you smoked: years Exposure to second hand smoke: Yes Alcohol: Occasionally Drug Use: none - Social Determinants of Health Will the patient participate in the screening: Yes Do you worry about a steady place to live?: No Do you have any problems with any of the following?: No known problems In the past 12 months,have you had to go without utilities?: Yes Have you or anyone in your house had to go without enough: No Transportation Issues: No Has anyone in your support network made you feel unsafe?: No Medications & Allergies Home Medications: Home Medication List No Reportable Medications [No Reported Medications] 07/24/24 [History Confirmed 07/24/24] Allergies/Adverse Reactions: Allergies Allergy/AdvReac Type Severity Reaction Status Date / Time No Known Drug Allergies Allergy Verified 07/24/24 17:51 Exam - Vitals Vital Signs: Vital Signs - 24 hr Temp Pulse Resp BP Pulse Ox 07/25/24 11:41 97.7 F 105 H 16 98/61 92 L 07/25/24 07:42 98.2 F 113 H 16 99/60 94 L 07/25/24 07:16 92 L 07/25/24 04:00 98.2 F 118 H 20 85/55 95 07/25/24 00:00 97.9 F 112 H 20 107/56 92 L 07/24/24 20:00 97.7 F 116 H 20 96/57 92 L 07/24/24 18:22 92 L 07/24/24 16:48 98.2 F 130 H 22 106/76 95 07/24/24 15:54 97 SpO2: 92 Results Vital Signs: Vital Signs - 24 hr Temp Pulse Resp BP Pulse Ox 07/25/24 11:41 97.7 F 105 H 16 98/61 92 L 07/25/24 07:42 98.2 F 113 H 16 99/60 94 L 07/25/24 07:16 92 L 07/25/24 04:00 98.2 F 118 H 20 85/55 95 07/25/24 00:00 97.9 F 112 H 20 107/56 92 L 07/24/24 20:00 97.7 F 116 H 20 96/57 92 L 07/24/24 18:22 92 L 07/24/24 16:48 98.2 F 130 H 22 106/76 95 07/24/24 15:54 97 Pain Assessment - Last Documented Pain Intensity 0 Intake and Output: Intake & Output 07/23/24 07/24/24 07/25/24 07/26/24 11:59 11:59 11:59 11:59 Intake Total 1660 240 Output Total 350 Balance 1660 -110 Weight 76.8 kg 76 kg LAB: I have reviewed the Labs in [employer]. Radiology Exams: Radiology Procedures Category Date Time Status CHEST 1 VIEW (PORTABLE) Stat Exams 07/24/24 11:57 Completed CHEST WITH CONTRAST [CT] Stat Exams 07/24/24 12:40 Completed ECHO W/2D AND DOPPLER [US] Urgent Exams 07/25/24 08:00 Taken Multi-Disciplinary Progress Notes: Multi-Disciplinary Progress Notes 07/25/24 13:00 (created 07/25/24 13:43) Case Management Note by Angelique Monzon PT REPORTS THAT THE LIFEVEST HE WAS SUPPOSED TO WEAR WAS SENT BACK TO THE COMPANY THAT HE GOT IT FROM PER THEIR REQUEST. REPORTS THAT HE SENT IT BACK IN spring. ALSO, REPORTS THAT HE IS NOT TAKING ANY OF HIS MEDICATIONS BECAUSE THEY MADE HIM "DRY HEAVE". REPORTS THAT IT WASN'T WORTH FEELING LIKE THAT SO I DECIDED THAT I WASN'T GOING TO TAKE THEM. Initialized on 07/25/24 13:43 - END OF NOTE 07/24/24 17:58 Respiratory Note by Janey Blackwell PT REFUSES TO TAKE NEBULIZER TX. STATES THEY OPEN HIS LUNGS UP AND WILL SPEAD ANY INFECTION HE HAS. DID INTRUCT PT ON ON BENIFITS OF NEB TX Initialized on 07/24/24 17:58 - END OF NOTE Assessment & Plan - Encounter Encounter: "The entirety of this encounter was performed via Telemedicine using audio and visual "
[2024-07-25 15:48] LABS: Amphetamine,Urine POSITIVE (NEGATIVE); Barbiturate,Urine NEGATIVE (NEGATIVE); Benzodiazepine,Urine NEGATIVE (NEGATIVE); Cocaine,Urine NEGATIVE (NEGATIVE); Methadone,Urine NEGATIVE (NEGATIVE); Opiate,Urine NEGATIVE (NEGATIVE); PCP,Urine NEGATIVE (NEGATIVE); THC,Urine NEGATIVE (NEGATIVE)
--- NOTE | 2024-07-25 18:12 | PCM.CONS ---
History of Present Illness - Date of Consult Date of Encounter: 07/25/24 [employer] Sales Representative: AMY JOHNS MD Requesting Provider: Attending Provider: FLOYD ROBERTS MD Primary Care Provider: PCP: [facility] - Consult Narrative HPI: 59 yo male with known hx of cardiomyopathy, hx of non compliance presents with a 2 week hx of worsening sob, and edema. Has been off his meds for weeks now. In the past has had a lifevest but lost it. He presents with an acute chf exacerbation. Denies fevers, chills, nausea, vomiting, diarrhea, syncope, presyncope, dysphagia,odynophagia, orthopnea, paroxysmal nocturnal dyspnea, shortness of breath, chest pain, refluxsymptoms, belly pain, dysuria, hematuria, melena, hematochezia, seizures, paralysis, or other neurological changes. All other systems have been reviewed and are negative. cc:: The requesting physician will be sent a copy of the consult. - Past Medical History Past Medical History: Yes Neurological History: No Pertinent History ENT History: No Pertinent History Cardiac History: Arrhythmia (AFIB), Congestive Heart Failure, Other Respiratory History: No Pertinent History Endocrine Medical History: No Pertinent History Musculoskelatal History: Degenerative Disk Disease GI Medical History: No Pertinent History History: No Pertinent History Pyscho-Social History: No Pertinent History Male Reproductive Disorders: No Pertinent History Comment: chf - Past Surgical History Past Surgical History: Yes Neuro Surgical History: No Pertinent History Cardiac History: Other (cardiac ablation - cardioversion x 2 both in 2022) Respiratory Surgery: No Pertinent History GI Surgical History: No Pertinent History Genitourinary Surgical Hx: No Pertinent History Musculskeletal Surgical Hx: Orthopedic Surgery Male Surgical History: No Pertinent History Other Surgical History: right knee. left leg - Social History Smoking Status: Current some day smoker How long have you smoked: years Exposure to second hand smoke: Yes Alcohol: Occasionally Drug Use: none - Social Determinants of Health Will the patient participate in the screening: Yes Do you worry about a steady place to live?: No Do you have any problems with any of the following?: No known problems In the past 12 months,have you had to go without utilities?: Yes Have you or anyone in your house had to go without enough: No Transportation Issues: No Has anyone in your support network made you feel unsafe?: No Medications & Allergies Home Medications: Home Medication List No Reportable Medications [No Reported Medications] 07/24/24 [History Confirmed 07/24/24] Allergies/Adverse Reactions: Allergies Allergy/AdvReac Type Severity Reaction Status Date / Time No Known Drug Allergies Allergy Verified 07/24/24 17:51 Exam - Vitals Vital Signs: Vital Signs - 24 hr Temp Pulse Resp BP Pulse Ox 07/25/24 17:25 96 07/25/24 16:00 98.6 F 116 H 16 123/67 93 L 07/25/24 11:41 97.7 F 105 H 16 98/61 92 L 07/25/24 07:42 98.2 F 113 H 16 99/60 94 L 07/25/24 07:16 92 L 07/25/24 04:00 98.2 F 118 H 20 85/55 95 07/25/24 00:00 97.9 F 112 H 20 107/56 92 L 07/24/24 20:00 97.7 F 116 H 20 96/57 92 L 07/24/24 18:22 92 L General:: alert and oriented x 4 Cardiovascular Exam: regular rate/rhythm SpO2: 96 Results Vital Signs: Vital Signs - 24 hr Temp Pulse Resp BP Pulse Ox 07/25/24 17:25 96 07/25/24 16:00 98.6 F 116 H 16 123/67 93 L 07/25/24 11:41 97.7 F 105 H 16 98/61 92 L 07/25/24 07:42 98.2 F 113 H 16 99/60 94 L 07/25/24 07:16 92 L 07/25/24 04:00 98.2 F 118 H 20 85/55 95 07/25/24 00:00 97.9 F 112 H 20 107/56 92 L 07/24/24 20:00 97.7 F 116 H 20 96/57 92 L 07/24/24 18:22 92 L Pain Assessment - Last Documented Pain Intensity 0 Intake and Output: Intake & Output 07/23/24 07/24/24 07/25/24 07/26/24 11:59 11:59 11:59 11:59 Intake Total 1660 814 Output Total 1150 Balance 1660 -336 Weight 76.8 kg 76 kg LAB: I have reviewed the Labs in [facility]. Radiology Exams: Radiology Procedures Category Date Time Status CHEST 1 VIEW (PORTABLE) Stat Exams 07/24/24 11:57 Completed CHEST WITH CONTRAST [CT] Stat Exams 07/24/24 12:40 Completed ECHO W/2D AND DOPPLER [US] Urgent Exams 07/25/24 08:00 Taken Multi-Disciplinary Progress Notes: Multi-Disciplinary Progress Notes 07/25/24 13:00 (created 07/25/24 13:43) Case Management Note by Angelique Monzon PT REPORTS THAT THE LIFEVEST HE WAS SUPPOSED TO WEAR WAS SENT BACK TO THE COMPANY THAT HE GOT IT FROM PER THEIR REQUEST. REPORTS THAT HE SENT IT BACK IN spring. ALSO, REPORTS THAT HE IS NOT TAKING ANY OF HIS MEDICATIONS BECAUSE THEY MADE HIM "DRY HEAVE". REPORTS THAT IT WASN'T WORTH FEELING LIKE THAT SO I DECIDED THAT I WASN'T GOING TO TAKE THEM. Initialized on 07/25/24 13:43 - END OF NOTE Assessment & Plan (1) CHF (congestive heart failure) Current Visit: Yes Status: Acute Assessment & Plan: acute on chronic CHF exacerbation - cw lasix for goal negative 1-2" - echo today shows EF of 25-30% - hypotension probiits the use of bb or alpesh or arb or arni. - if blood pressure rises above sbp of 110 can consider starting low dose toprol - would cw diuretics as outpt - can consider uptitration of meds as outpt if the patient shows compliance. Code(s): I50.9 - HEART FAILURE, UNSPECIFIED - Encounter Encounter: "The entirety of this encounter was performed via Telemedicine using audio and visual "
[2024-07-26 05:08] LABS: Absolute Neutrophil Ct (ANC) 14.31 x10^3/uL (1.78-5.38); BASOPHIL % 0.1 % (0.2-1.2); Basophil (Absolute #) 0.02 x10^3/uL (0.01-0.08); Eosinophil (Absolute #) 0 x10^3/uL (0.04-0.54); Hematocrit 39.4 % (40.1-51.0); Hemoglobin 12.9 g/dL (13.7-17.5); IMMATURE GRAN # 0.08 x10^3u/L (0.001-0.031); IMMATURE GRAN % 0.5 % (0.001-0.429); Lymphocyte (Absolute #) 0.83 x10^3/uL (1.32-3.57); Lymphocytes % 5.3 % (21.8-53.1); Mean Cell Volume 92.7 fL (79.0-92.2); Mean Corpuscular Hemoglobin 30.4 pg (25.7-32.2); Mean Corpuscular Hgb Concent. 32.7 g/dL (32.3-36.5); Mean Platelet Volume 10.4 fL (9.4-12.4); Monocyte (Absolute #) 0.49 x10^3/uL (0.30-0.82); Monocytes % 3.1 % (5.3-12.2); Platelet Count 258 x10^3/uL (163-337); Red Blood Count 4.25 x10^6/uL (4.63-6.08); Red Cell Distribution Width 14.1 % (11.6-14.4); White Blood Count 15.7 x10^3/uL (4.23-9.07)
--- NOTE | 2024-07-26 05:15 | PCM.NOTE ---
Date and Time: 07/26/24 0514 Subjective Assessment: HPI: Mr. Mejia is a 59 year old male with a pmhx of tobacco abuse, AFIB (s/p ablation), DDD, and CHF who presented to ED 07/24/24 with complaints of progressive shortness of breath, chest congestion, productive cough with blood- tinged sputum, and wheezing. Onset about two weeks ago. He also reports left s ided chest pressure 4/10 on numerical pain scale. No radiation. No associated symptoms. No relieving/aggravating factors. Denies fever,abdominal pain, DUVALL, dizziness, N/V/D. Upon arrival to ED, patient tachypneic, tachycardic, and hypoxic. EKG with sinus tachycardia HR at 116. CT chest demonstrates mild diffuse bilateral patchy groundglass airspace disease with bilateral effusions. Negative for PE. Lab findings remarkable for elevated ddimer (CTA negative for PE), macrocytic anemia with hgb at 11.4, elevated AST and ALT, and uptrending tropinin I 0.045>0.038. BNP 7510. Patient admitted for CHF and COPD exacerbation and pneumonia. Given ceftriaxone,azithromycin, lasix, and solumedrol in ED. Plan for continued diuresis, abx, and steroids. 07/25/24: Met with patient bedside. Endorses that he continues to have chest pressure. Dyspnea improved. On RA. HR > 110 consistently. Started digoxin. Cardiac consult pending. Echo pending. Plan for continued diuresis, abx, steroids. 07/26/24: Met with patient bedside. No overnight events noted. Still with some tachycardia. UDS + for amphetamines which patient denies taking. Dyspnea and cough improved. BLE edema resolved. Denies fever,cough, sob, cp, abdominal pain, DUVALL, dizziness, N/V/D. - Review of Systems All Other Systems: Reviewed and Negative Objective Exam General Appearance: no apparent distress, cachetic Neurologic Exam: alert, oriented x 3, cooperative Skin Exam: normal color Eye Exam: PERRL Ears, Nose, Throat Exam: normal ENT inspection Neck Exam: normal inspection Respiratory Exam: lungs clear, diminished breath sounds Cardiovascular Exam: tachycardia Gastrointestinal/Abdomen Exam: soft, normal bowel sounds Extremity Exam: normal inspection Back Exam: normal inspection Male Genitalia Exam: deferred Rectal Exam: deferred Objective Data Vital Signs: Vital Signs - 24 hr Temp Pulse Resp BP Pulse Ox 07/26/24 03:44 109 H 15 07/26/24 00:00 98.4 F 120 H 18 126/62 96 07/25/24 20:00 98 F 117 H 18 102/60 97 07/25/24 18:12 96 07/25/24 17:25 96 07/25/24 16:00 98.6 F 116 H 16 123/67 93 L 07/25/24 11:41 97.7 F 105 H 16 98/61 92 L 07/25/24 07:42 98.2 F 113 H 16 99/60 94 L 07/25/24 07:16 92 L Pain Assessment - Last Documented Pain Intensity 0 Intake and Output: Intake & Output 07/23/24 07/24/24 07/25/24 07/26/24 11:59 11:59 11:59 11:59 Intake Total 1660 1054 Output Total 2200 Balance 1660 -1146 Weight 76.8 kg 76 kg Lab Results: Lab Results-Last 24 Hours 07/24/24 07/25/24 07/25/24 Range/Units 13:46 04:34 04:34 Sodium 138 (135-145) mmol/L Potassium 4.7 (3.5-5.1) mmol/L Chloride 105 (98-107) mmol/L Carbon Dioxide 27 (22-30) mmol/L Anion Gap 10.7 (5-15) MEQ/L BUN 25 H (9-20) mg/dL Creatinine 1.17 (0.66-1.25) mg/dL Estimated GFR 72.3 ML/MIN Glucose 167 H (74-106) mg/dL Calcium 9.3 (8.4-10.2) mg/dL Total Bilirubin 0.60 (0.2-1.3) mg/dL AST 78 H (17-59) U/L ALT 95 H (0-50) U/L Alkaline Phosphatase 73 (38-126) U/L Serum Total Protein 7.0 (6.3-8.2) g/dL Albumin 4.0 (3.5-5.0) g/dL Urine Opiates Level NEGATIVE (NEGATIVE) Ur Methadone NEGATIVE (NEGATIVE) Urine Barbiturates NEGATIVE (NEGATIVE) Ur Phencyclidine (PCP) NEGATIVE (NEGATIVE) Urine Amphetamine POSITIVE A (NEGATIVE) U Benzodiazepine Level NEGATIVE (NEGATIVE) Urine Cocaine NEGATIVE (NEGATIVE) Urine Marijuana (THC) NEGATIVE (NEGATIVE) Slides for Path Review YES Radiology Exams: Radiology Procedures Category Date Time Status CHEST 1 VIEW (PORTABLE) Stat Exams 07/24/24 11:57 Completed CHEST WITH CONTRAST [CT] Stat Exams 07/24/24 12:40 Completed ECHO W/2D AND DOPPLER [US] Urgent Exams 07/25/24 08:00 Taken Multi-Disciplinary Progress Notes: Multi-Disciplinary Progress Notes 07/25/24 13:00 (created 07/25/24 13:43) Case Management Note by Angelique Monzon PT REPORTS THAT THE LIFEVEST HE WAS SUPPOSED TO WEAR WAS SENT BACK TO THE COMPANY THAT HE GOT IT FROM PER THEIR REQUEST. REPORTS THAT HE SENT IT BACK IN spring. ALSO, REPORTS THAT HE IS NOT TAKING ANY OF HIS MEDICATIONS BECAUSE THEY MADE HIM "DRY HEAVE". REPORTS THAT IT WASN'T WORTH FEELING LIKE THAT SO I DECIDED THAT I WASN'T GOING TO TAKE THEM. Initialized on 07/25/24 13:43 - END OF NOTE Assessment/Plan (1) Pneumonia Current Visit: Yes Status: Acute Assessment & Plan: -CT with mild diffuse bilateral patchy groundglass airspace disease with bilateral effusions. Negative for PE -Supplemental oxygen with goal spo2 > 91% -baseline RA - currently RA -RT eval -DuoNebs/INH-solumedrol -ceftriaxone and azithromycin started in ED, will continue -WBC WNL -procal -blood cultures pending -pt refused respiratory viral panel 07/25/24: -WBC reviewed at 11.4 - increase may be secondary to steroids -bcult pending -procal WNL -Pt refuses COVID/FLU/RSV testing 07/26/24: -WBC reviewed and at 15.7 most likely secondary to steroids -Remains on RA Code(s): J18.9 - PNEUMONIA, UNSPECIFIED ORGANISM (2) Acute respiratory failure with hypoxia Current Visit: Yes Status: Acute Assessment & Plan: -2/2 to pneumonia - see plan above Code(s): J96.01 - ACUTE RESPIRATORY FAILURE WITH HYPOXIA (3) Chest pain Current Visit: Yes Status: Acute Assessment & Plan: -EKG with sinus tachycardia -trops reviewed and uptrending -continue series -echo -repeat ekg in a.m. -cardiology consulted 07/25/24: -Cardiology consult pending -echo pending 07/26: -CP resolved -Discussed case with cardiology - - echo shows improvement of EF of 25-30% - hypotension probits the use of bb or alpesh or arb or arni - if blood pressure rises above sbp of 110 can start metoprolol at 12.5mg bid - can consider uptitration of meds as outpt if the patient shows compliance. Code(s): R07.9 - CHEST PAIN, UNSPECIFIED (4) CHF exacerbation Current Visit: Yes Status: Acute Assessment & Plan: -CT mild diffuse bilateral patchy groundglass airspace disease with bilateral effusions -PT states EF at 15%- non-compliant with home meds and life vest - currently does not take anything - does not know which membership assistant he has seen in the past -No echo on file - will obtain -BNP 7510 -Lasix 40mg bid -Daily weights/ elevate HOB -Strict I&O -optimize electrolytes -Cardiology consult- appreciate recs -Supplemental oxygen with goal spo2 > 91%- baseline RA 07/26/24; -Discussed case with cardiology and agree to recommendations of starting low dose metoprolol once BP is > 110 systolic - will start metoprolol 12.5mg bid today pending this criteria -Will need follow up with cards as OP -Continue lasix -Echo shows improved EF now at 25-30% -Of note UDS + for amphetamines Code(s): I50.9 - HEART FAILURE, UNSPECIFIED (5) Afib Current Visit: Yes Status: Acute Assessment & Plan: -s/p cardiac ablation -EKG with sinus tachycardia HR 112 -cardiology consult 07/25/24: -HR continues to be elevated - no home meds - start digoxin 0.25 mg -cardiology consult pending -EKG with SVT and on tele- no afib noted Code(s): I48.91 - UNSPECIFIED ATRIAL FIBRILLATION (6) Smoker Current Visit: Yes Status: Acute Assessment & Plan: -Advised cessation - nicotine patch Code(s): F17.200 - NICOTINE DEPENDENCE, UNSPECIFIED, UNCOMPLICATED (7) Elevated d-dimer Current Visit: Yes Status: Acute Assessment & Plan: -CTA negative for PE- may be secondary to CHF/COPD exacerbation Code(s): R79.89 - OTHER SPECIFIED ABNORMAL FINDINGS OF BLOOD CHEMISTRY (8) Anemia Current Visit: Yes Status: Acute Assessment & Plan: -Iron studies -Hgb reviewed at 11.4- will monitor 07/25/24: -iron sat at 11% - could use follow up with hematology for iron deficiency anemia - will start ferrous sulfate for now Code(s): D64.9 - ANEMIA, UNSPECIFIED (9) Elevated LFTs Current Visit: Yes Status: Acute Assessment & Plan: -mild - monitor Code(s): R79.89 - OTHER SPECIFIED ABNORMAL FINDINGS OF BLOOD CHEMISTRY (10) Elevated troponin Current Visit: Yes Status: Acute Assessment & Plan: -Cardiology consulted - appreciate recs -Trops reviewed with uptrend 07/25/24: -Troponin series 0.037<0.045>0.037 VTE: lovenox PPI: protonix Dispo: 1-2 days Code(s): J18.9 - PNEUMONIA, UNSPECIFIED ORGANISM (2) Acute respiratory failure with hypoxia Current Visit: Yes Status: Acute Code(s): J96.01 - ACUTE RESPIRATORY FAILURE WITH HYPOXIA (3) Chest pain Current Visit: Yes Status: Acute Code(s): R07.9 - CHEST PAIN, UNSPECIFIED (4) CHF exacerbation Current Visit: Yes Status: Acute Code(s): I50.9 - HEART FAILURE, UNSPECIFIED (5) Afib Current Visit: Yes Status: Acute Code(s): I48.91 - UNSPECIFIED ATRIAL FIBRILLATION (6) Smoker Current Visit: Yes Status: Acute Code(s): F17.200 - NICOTINE DEPENDENCE, UNSPECIFIED, UNCOMPLICATED (7) Elevated d-dimer Current Visit: Yes Status: Acute Code(s): R79.89 - OTHER SPECIFIED ABNORMAL FINDINGS OF BLOOD CHEMISTRY (8) Anemia Current Visit: Yes Status: Acute Code(s): D64.9 - ANEMIA, UNSPECIFIED (9) Elevated LFTs Current Visit: Yes Status: Acute Code(s): R79.89 - OTHER SPECIFIED ABNORMAL FINDINGS OF BLOOD CHEMISTRY (10) Elevated troponin Current Visit: Yes Status: Acute Code(s): R79.89 - OTHER SPECIFIED ABNORMAL FINDINGS OF BLOOD CHEMISTRY
[2024-07-26 05:28] LABS: ALBUMIN 3.8 g/dL (3.5-5.0); ANION GAP 9.7 MEQ/L (5-15); BILIRUBIN,TOTAL 0.3 mg/dL (0.2-1.3); Creatinine 1 1.17 mg/dL (0.66-1.25); EST GLOMERULAR FILTRATION RATE 72.3 ML/MIN; Potassium 4.5 mmol/L (3.5-5.1); Total Protein 6.8 g/dL (6.3-8.2)
[2024-07-26] MEDS: Lopressor 25MG Tab PO SCH (09:24)
--- NOTE | 2024-07-26 15:31 | PCM.NOTE ---
Date and Time: 07/26/24 1527 Subjective Assessment: pt is breathing better but rates now in 130. Still appears to be sinus tacy, but could be atrial tacycardia or flutter given his hx. Objective Data Vital Signs: Vital Signs - 24 hr Temp Pulse Resp BP BP Pulse Ox 07/26/24 13:39 119 H 96/61 07/26/24 11:49 98.0 F 108 H 16 95/53 94 L 07/26/24 09:22 118 H 103/63 07/26/24 07:27 98.2 F 110 H 18 120/78 97 07/26/24 03:44 109 H 15 07/26/24 00:00 98.4 F 120 H 18 126/62 96 07/25/24 20:00 98 F 117 H 18 102/60 97 07/25/24 18:12 96 07/25/24 17:25 96 07/25/24 16:00 98.6 F 116 H 16 123/67 93 L Pain Assessment - Last Documented Pain Intensity 0 Intake and Output: Intake & Output 07/24/24 07/25/24 07/26/24 07/27/24 11:59 11:59 11:59 11:59 Intake Total 1660 1294 120 Output Total 4500 Balance 1660 -3206 120 Weight 76.8 kg 76 kg 69 kg LAB: I have reviewed the Labs in [facility]. Lab Results: Lab Results-Last 24 Hours 07/24/24 07/26/24 07/26/24 Range/Units 13:46 04:40 04:40 WBC 15.7 H (4.23-9.07) x10^3/uL RBC 4.25 L (4.63-6.08) x10^6/uL Hgb 12.9 L (13.7-17.5) g/dL Hct 39.4 L (40.1-51.0) % MCV 92.7 H (79.0-92.2) fL MCH 30.4 (25.7-32.2) pg MCHC 32.7 (32.3-36.5) g/dL RDW 14.1 (11.6-14.4) % Plt Count 258 (163-337) x10^3/uL MPV 10.4 (9.4-12.4) fL Gran % 91.0 H (34.0-67.9) % Immature Gran % (Auto) 0.5 H (0.001-0.429) % Nucleat RBC Rel Count 0.0 (0.00-0.2) % Eos # (Auto) 0 L (0.04-0.54) x10^3/uL Immature Gran # (Auto) 0.08 H (0.001-0.031) x10^3u/L Absolute Lymphs (auto) 0.83 L (1.32-3.57) x10^3/uL Absolute Monos (auto) 0.49 (0.30-0.82) x10^3/uL Absolute Nucleated RBC 0.00 (0.00-0.012) x10^3u/L Lymphocytes % 5.3 L (21.8-53.1) % Monocytes % 3.1 L (5.3-12.2) % Eosinophils % 0.0 L (0.8-7.0) % Basophils % 0.1 L (0.2-1.2) % Absolute Granulocytes 14.31 H (1.78-5.38) x10^3/uL Basophils # 0.02 (0.01-0.08) x10^3/uL Sodium 139 (135-145) mmol/L Potassium 4.5 (3.5-5.1) mmol/L Chloride 104 (98-107) mmol/L Carbon Dioxide 29 (22-30) mmol/L Anion Gap 9.7 (5-15) MEQ/L BUN 28 H (9-20) mg/dL Creatinine 1.17 (0.66-1.25) mg/dL Estimated GFR 72.3 ML/MIN Glucose 136 H (74-106) mg/dL Calcium 9.0 (8.4-10.2) mg/dL Total Bilirubin 0.30 (0.2-1.3) mg/dL AST 64 H (17-59) U/L ALT 95 H (0-50) U/L Alkaline Phosphatase 69 (38-126) U/L Serum Total Protein 6.8 (6.3-8.2) g/dL Albumin 3.8 (3.5-5.0) g/dL Urine Opiates Level NEGATIVE (NEGATIVE) Ur Methadone NEGATIVE (NEGATIVE) Urine Barbiturates NEGATIVE (NEGATIVE) Ur Phencyclidine (PCP) NEGATIVE (NEGATIVE) Urine Amphetamine POSITIVE A (NEGATIVE) U Benzodiazepine Level NEGATIVE (NEGATIVE) Urine Cocaine NEGATIVE (NEGATIVE) Urine Marijuana (THC) NEGATIVE (NEGATIVE) Radiology Exams: Radiology Procedures Category Date Time Status ECHO W/2D AND DOPPLER [US] Urgent Exams 07/25/24 08:00 Taken Multi-Disciplinary Progress Notes: Multi-Disciplinary Progress Notes 07/26/24 13:02 Case Management Note by Drea Joy S/W PATIENT- HE CONTINUES TO DENY ANY NEW NEEDS AT TIME OF DC. HE REPORTS HE CAN AFFORD HIS MEDS AND GET BACK AND FORTH TO [facility]. Initialized on 07/26/24 13:02 - END OF NOTE Assessment & Plan (1) CHF (congestive heart failure) Current Visit: Yes Status: Acute Assessment & Plan: - starting become euvloemic. ok to hold lasix for now given his low blood pressure. - rates remain increased which could be a combination of sinus tachy, atrial tachycardia, or drug withdrawal - start TID amio 400mg for better rate and rhythm control. antiarrhythmics options are limited given his cardiomyopathy and hypotension. Can also consider ivabridine if rates are not controlled. cw anticoagulation. unable to tolerate any other GDMT given his low blood pressure Code(s): I50.9 - HEART FAILURE, UNSPECIFIED - Encounter Encounter: "The entirety of this encounter was performed via Telemedicine using audio and visual "
[2024-07-26] MEDS: Cordarone 200 MG PO SCH (15:41)
--- NOTE | 2024-07-26 17:33 | PCM.CONS ---
History of Present Illness - Neuro Consultation ED Arrival Date & Time: 07/24/24 11:32 Providers: Attending Provider: FLOYD ROBERTS MD ED Provider: AIXA WEST Consulting Provider: DAJUAN BORGES MD cc:: The requesting physician will be sent a copy of the consult. - History of Present Illness HPI: The patient is a 59M Review of Systems - Review of Systems Review of Systems (Narrative): Pertinent positive and negative findings as per HPI. All other systems negative. - Past Medical History Past Medical History: Yes Neurological History: No Pertinent History ENT History: No Pertinent History Cardiac History: Arrhythmia (AFIB), Congestive Heart Failure, Other Respiratory History: No Pertinent History Endocrine Medical History: No Pertinent History Musculoskelatal History: Degenerative Disk Disease GI Medical History: No Pertinent History History: No Pertinent History Pyscho-Social History: No Pertinent History Male Reproductive Disorders: No Pertinent History Comment: chf - Past Surgical History Past Surgical History: Yes Neuro Surgical History: No Pertinent History Cardiac History: Other (cardiac ablation - cardioversion x 2 both in 2022) Respiratory Surgery: No Pertinent History GI Surgical History: No Pertinent History Genitourinary Surgical Hx: No Pertinent History Musculskeletal Surgical Hx: Orthopedic Surgery Male Surgical History: No Pertinent History Other Surgical History: right knee. left leg - Social History Smoking Status: Current some day smoker How long have you smoked: years Exposure to second hand smoke: Yes Alcohol: Occasionally Drug Use: none - Social Determinants of Health Will the patient participate in the screening: Yes Do you worry about a steady place to live?: No Do you have any problems with any of the following?: No known problems In the past 12 months,have you had to go without utilities?: Yes Have you or anyone in your house had to go without enough: No Transportation Issues: No Has anyone in your support network made you feel unsafe?: No Physical Exam - Vital Signs Vital Signs: Vital Signs - 24 hr 07/25/24 07/25/24 07/26/24 18:12 20:00 00:00 Temperature 98 F 98.4 F Pulse Rate 117 H 120 H Respiratory 18 18 Rate Blood Pressure [Left Arm] Blood Pressure 102/60 126/62 [Right Arm] O2 Sat by Pulse 96 97 96 Oximetry 07/26/24 07/26/24 07/26/24 03:44 07:27 09:22 Temperature 98.2 F Pulse Rate 109 H 110 H 118 H Respiratory 15 18 Rate Blood Pressure 103/63 [Left Arm] Blood Pressure 120/78 [Right Arm] O2 Sat by Pulse 97 Oximetry 07/26/24 07/26/24 07/26/24 11:49 13:39 15:30 Temperature 98.0 F 97.1 F Pulse Rate 108 H 119 H 113 H Respiratory 16 23 Rate Blood Pressure 95/53 95/65 [Left Arm] Blood Pressure 96/61 [Right Arm] O2 Sat by Pulse 94 L 95 Oximetry - Physical Exam General: no acute distress Mental Status: alert, awake and oriented, fund of knowledge, memory at baseline, fluent speech, no dysarthria Cranial nerves: + Blink, Visual oreilly are full to finger counting, no extinction to double Motor: antigravity in all 4 ext, no drift noted, normal bulk Sens:: intact to touch in all 4 Movement:: no tremors noted, HAROLDO/FTN intact. No ataxia Gait: deferred Results - Labs Lab/Micro Results: Lab Results-Last 24 Hours 07/26/24 07/26/24 Range/Units 04:40 04:40 WBC 15.7 H (4.23-9.07) x10^3/uL RBC 4.25 L (4.63-6.08) x10^6/uL Hgb 12.9 L (13.7-17.5) g/dL Hct 39.4 L (40.1-51.0) % MCV 92.7 H (79.0-92.2) fL MCH 30.4 (25.7-32.2) pg MCHC 32.7 (32.3-36.5) g/dL RDW 14.1 (11.6-14.4) % Plt Count 258 (163-337) x10^3/uL MPV 10.4 (9.4-12.4) fL Gran % 91.0 H (34.0-67.9) % Immature Gran % (Auto) 0.5 H (0.001-0.429) % Nucleat RBC Rel Count 0.0 (0.00-0.2) % Eos # (Auto) 0 L (0.04-0.54) x10^3/uL Immature Gran # (Auto) 0.08 H (0.001-0.031) x10^3u/L Absolute Lymphs (auto) 0.83 L (1.32-3.57) x10^3/uL Absolute Monos (auto) 0.49 (0.30-0.82) x10^3/uL Absolute Nucleated RBC 0.00 (0.00-0.012) x10^3u/L Lymphocytes % 5.3 L (21.8-53.1) % Monocytes % 3.1 L (5.3-12.2) % Eosinophils % 0.0 L (0.8-7.0) % Basophils % 0.1 L (0.2-1.2) % Absolute Granulocytes 14.31 H (1.78-5.38) x10^3/uL Basophils # 0.02 (0.01-0.08) x10^3/uL Sodium 139 (135-145) mmol/L Potassium 4.5 (3.5-5.1) mmol/L Chloride 104 (98-107) mmol/L Carbon Dioxide 29 (22-30) mmol/L Anion Gap 9.7 (5-15) MEQ/L BUN 28 H (9-20) mg/dL Creatinine 1.17 (0.66-1.25) mg/dL Estimated GFR 72.3 ML/MIN Glucose 136 H (74-106) mg/dL Calcium 9.0 (8.4-10.2) mg/dL Total Bilirubin 0.30 (0.2-1.3) mg/dL AST 64 H (17-59) U/L ALT 95 H (0-50) U/L Alkaline Phosphatase 69 (38-126) U/L Serum Total Protein 6.8 (6.3-8.2) g/dL Albumin 3.8 (3.5-5.0) g/dL Microbiology 07/24/24 15:04 Blood Culture - Preliminary Blood - Radiology Orders Radiology Orders: Radiology Procedures Category Date Time Status ECHO W/2D AND DOPPLER [US] Urgent Exams 07/25/24 08:00 Taken Impressions & Recommendations - ED Arrival Time ED Arrival Date & Time: ED Arrival Date and Time 07/24/24 11:32 Last known well time: - NIHSS IV Thrombolysis Standard of Care: IV thrombolysis as a standard of care in acute stroke discussed with AIXA WEST. Risk, benefits, and options of IV thrombolytic therapy for acute ischemic stroke were discussed with the patient/family BRUCE MOTTA. We discussed that use of IV tenecteplase is in line with national stroke guidelines. We discussed that risks of IV thrombolytic use include intracranial hemorrhage, other fatal bleeding risks, and angioedema. Alternatives of treatment, including not proceeding with thrombolytic therapy were discussed. - Recommendations Recommendations: -Neuro checks, NIHSS, vital signs monitoring as per post tenecteplase protocol -Repeat non contrast head CT or noncontrast MRI brain 24 hours after IV thrombolyltic administration. -Obtain STAT non contrast head CT if there are new neurological deficits, worsening of current deficits, or with complaint of severe headache. Notify Neurology VENITA of changes in neurological exam. -Nicardipine gtt as needed to maintain BP< 180/105 x 24hr post tenecteplase administration. -Monitor for angioedema -SCD's for DVT prophylaxis. Work up: -Basic labs (CBC, BMP, TSH+T4) if not done already. -INR,PTT if not done already -Fasting Lipid Panel and Hgb A1c -Transthroacic echocardiogram [with bubble study] -EKG + Telemetry- monitor for A-FIB Secondary Stroke Prevention -Hold off on antiplatelet therapy x 24 hr post IV thrombolytic therapy Decision to initiate antiplatelet therapy, or anticoagulation if needed, will be based on repeat imaging at 24 hour post thrombolytic administration. -If not medical contraindication, start high intensity statin. Eg. Atrovastatin 80 mg daily Risk Factor Management -HTN control: BP <180/105 for first 24 hr post tenecteplase -If diabetic, optimize glucose control: [facility] goal HgA1c <7 -HLD control: Long-term goal LDL <70. High intensity statin recommended. Moderate intensity statin in patients > 75 years. -Smoking Alcohol Use Drug use cessation counseling Stroke Rehabilitation: -Physical therapy, occupational therapy, speech therapy consults -Social work and case management consults for help with discharge needs. Impression and recommendation were discussed with Dr. AIXA WEST Thank you for allowing us to participate in this patient's care. Please call [facility] with questions, concerns, or change in patient's neurological status. This consult was performed via secure telemedicine audio/visual platform with [ ] RN assisting at bedside. Patient identity verified and consent obtained. TIQ recieved at [ ] Neuro Cart Time: Delays in Patient Encounter: Assessment & Plan - Encounter Encounter: "The entirety of this encounter was performed via Telemedicine using audio and visual "
[2024-07-26] MEDS: Vibramycin 100 MG PO SCH (21:13)
[2024-07-27 05:12] LABS: Absolute Neutrophil Ct (ANC) 10.68 x10^3/uL (1.78-5.38); BASOPHIL % 0.2 % (0.2-1.2); Basophil (Absolute #) 0.03 x10^3/uL (0.01-0.08); Eosinophil % 0.2 % (0.8-7.0); Eosinophil (Absolute #) 0.03 x10^3/uL (0.04-0.54); Hematocrit 40.9 % (40.1-51.0); Hemoglobin 13.5 g/dL (13.7-17.5); IMMATURE GRAN # 0.08 x10^3u/L (0.001-0.031); IMMATURE GRAN % 0.6 % (0.001-0.429); Lymphocyte (Absolute #) 2.15 x10^3/uL (1.32-3.57); Lymphocytes % 15.6 % (21.8-53.1); Mean Cell Volume 92.1 fL (79.0-92.2); Mean Corpuscular Hemoglobin 30.4 pg (25.7-32.2); Mean Platelet Volume 10.3 fL (9.4-12.4); Monocyte (Absolute #) 0.83 x10^3/uL (0.30-0.82); Neutrophil % 77.4 % (34.0-67.9); Platelet Count 286 x10^3/uL (163-337); Red Blood Count 4.44 x10^6/uL (4.63-6.08); Red Cell Distribution Width 14.1 % (11.6-14.4); White Blood Count 13.8 x10^3/uL (4.23-9.07)
[2024-07-27 05:29] LABS: ALBUMIN 3.9 g/dL (3.5-5.0); ANION GAP 10.3 MEQ/L (5-15); BILIRUBIN,TOTAL 0.3 mg/dL (0.2-1.3); Calcium 9.2 mg/dL (8.4-10.2); Creatinine 1 1.34 mg/dL (0.66-1.25); EST GLOMERULAR FILTRATION RATE 61.4 ML/MIN; Potassium 4.3 mmol/L (3.5-5.1); Total Protein 6.9 g/dL (6.3-8.2)
--- NOTE | 2024-07-27 05:47 | PCM.NOTE ---
Date and Time: 07/27/24 0539 Subjective Assessment: HPI: Mr. Mejia is a 59 year old male with a pmhx of tobacco abuse, AFIB (s/p ablation), DDD, and CHF who presented to ED 07/24/24 with complaints of progressive shortness of breath, chest congestion, productive cough with blood- tinged sputum, and wheezing. Onset about two weeks ago. He also reports left s ided chest pressure 4/10 on numerical pain scale. No radiation. No associated symptoms. No relieving/aggravating factors. Denies fever,abdominal pain, DUVALL, dizziness, N/V/D. Upon arrival to ED, patient tachypneic, tachycardic, and hypoxic. EKG with sinus tachycardia HR at 116. CT chest demonstrates mild diffuse bilateral patchy groundglass airspace disease with bilateral effusions. Negative for PE. Lab findings remarkable for elevated ddimer (CTA negative for PE), macrocytic anemia with hgb at 11.4, elevated AST and ALT, and uptrending tropinin I 0.045>0.038. BNP 7510. Patient admitted for CHF and COPD exacerbation and pneumonia. Given ceftriaxone,azithromycin, lasix, and solumedrol in ED. Plan for continued diuresis, abx, and steroids. Cardiology consulted. Echo with EF at 25-30 %. Recs to start metoprolol when BP is > 110 - HR continues to be elevated and amiodarone started at 400mg TID-antiarrhythmics options are limited given his cardiomyopathy and hypotension. Can also consider ivabridine if rates are not controlled. cw anticoagulation. unable to tolerate any other GDMT given his low blood pressure 07/25/24: Met with patient bedside. Endorses that he continues to have chest pressure. Dyspnea improved. On RA. HR > 110 consistently. Started digoxin. Cardiac consult pending. Echo pending. Plan for continued diuresis, abx, steroids. 07/26/24: Met with patient bedside. No overnight events noted. Still with some tachycardia. UDS + for amphetamines which patient denies taking. Dyspnea and cough improved. BLE edema resolved. Denies fever,cough, sob, cp, abdominal pain, DUAVLL, dizziness, N/V/D. 07/27/24: Cardiology reviewed patients case 07/26/24- amiodarone 400mg tid started for tachycardia. Not much improvement. Lasix discontinued as patient is now euvolemic. Patient endorsing heartburn today. Dyspnea and cough improved. HR remains in the 120's - cardiology following. - Review of Systems Constitutional: No Symptoms Eyes: No Symptoms Ears, Nose, & Throat: No Symptoms Respiratory: Cough, Short Of Breath Cardiac: No Symptoms Abdominal/Gastrointestinal: No Symptoms Genitourinary Symptoms: No Symptoms Musculoskeletal: No Symptoms Skin: No Symptoms Neurological: No Symptoms Psychological: No Symptoms Endocrine: No Symptoms Hematologic/Lymphatic: No Symptoms Immunological/Allergic: No Symptoms Objective Exam General Appearance: no apparent distress Neurologic Exam: alert, oriented x 3, cooperative Skin Exam: normal color Eye Exam: PERRL Ears, Nose, Throat Exam: normal ENT inspection Neck Exam: normal inspection Respiratory Exam: diminished breath sounds, crackles/rales Cardiovascular Exam: tachycardia Gastrointestinal/Abdomen Exam: soft, normal bowel sounds Extremity Exam: normal inspection Back Exam: normal inspection Male Genitalia Exam: deferred Rectal Exam: deferred Objective Data Vital Signs: Vital Signs - 24 hr Temp Pulse Resp BP BP Pulse Ox 07/27/24 04:12 97.8 F 105 H 16 105/56 97 07/26/24 23:52 98.5 F 108 H 17 92/65 95 07/26/24 21:14 106/62 07/26/24 19:49 98.6 F 117 H 17 87/54 95 07/26/24 15:30 97.1 F 113 H 23 95/65 95 07/26/24 13:39 119 H 96/61 07/26/24 11:49 98.0 F 108 H 16 95/53 94 L 07/26/24 09:22 118 H 103/63 07/26/24 07:27 98.2 F 110 H 18 120/78 97 Pain Assessment - Last Documented Pain Intensity 0 Intake and Output: Intake & Output 07/24/24 07/25/24 07/26/24 07/27/24 11:59 11:59 11:59 11:59 Intake Total 1660 1294 2098 Output Total 4500 1700 Balance 1660 -3206 398 Weight 76.8 kg 76 kg 69 kg Lab Results: Lab Results-Last 24 Hours 07/27/24 07/27/24 Range/Units 05:05 05:05 WBC 13.8 H (4.23-9.07) x10^3/uL RBC 4.44 L (4.63-6.08) x10^6/uL Hgb 13.5 L (13.7-17.5) g/dL Hct 40.9 (40.1-51.0) % MCV 92.1 (79.0-92.2) fL MCH 30.4 (25.7-32.2) pg MCHC 33.0 (32.3-36.5) g/dL RDW 14.1 (11.6-14.4) % Plt Count 286 (163-337) x10^3/uL MPV 10.3 (9.4-12.4) fL Gran % 77.4 H (34.0-67.9) % Immature Gran % (Auto) 0.6 H (0.001-0.429) % Nucleat RBC Rel Count 0.0 (0.00-0.2) % Eos # (Auto) 0.03 L (0.04-0.54) x10^3/uL Immature Gran # (Auto) 0.08 H (0.001-0.031) x10^3u/L Absolute Lymphs (auto) 2.15 (1.32-3.57) x10^3/uL Absolute Monos (auto) 0.83 H (0.30-0.82) x10^3/uL Absolute Nucleated RBC 0.00 (0.00-0.012) x10^3u/L Lymphocytes % 15.6 L (21.8-53.1) % Monocytes % 6.0 (5.3-12.2) % Eosinophils % 0.2 L (0.8-7.0) % Basophils % 0.2 (0.2-1.2) % Absolute Granulocytes 10.68 H (1.78-5.38) x10^3/uL Basophils # 0.03 (0.01-0.08) x10^3/uL Sodium 140 (135-145) mmol/L Potassium 4.3 (3.5-5.1) mmol/L Chloride 106 (98-107) mmol/L Carbon Dioxide 28 (22-30) mmol/L Anion Gap 10.3 (5-15) MEQ/L BUN 35 H (9-20) mg/dL Creatinine 1.34 H (0.66-1.25) mg/dL Estimated GFR 61.4 ML/MIN Glucose 98 (74-106) mg/dL Calcium 9.2 (8.4-10.2) mg/dL Total Bilirubin 0.30 (0.2-1.3) mg/dL AST 41 (17-59) U/L ALT 74 H (0-50) U/L Alkaline Phosphatase 68 (38-126) U/L Serum Total Protein 6.9 (6.3-8.2) g/dL Albumin 3.9 (3.5-5.0) g/dL Radiology Exams: Radiology Procedures Category Date Time Status ECHO W/2D AND DOPPLER [US] Urgent Exams 07/25/24 08:00 Taken Multi-Disciplinary Progress Notes: Multi-Disciplinary Progress Notes 07/26/24 13:02 Case Management Note by Drea Joy S/W PATIENT- HE CONTINUES TO DENY ANY NEW NEEDS AT TIME OF DC. HE REPORTS HE CAN AFFORD HIS MEDS AND GET BACK AND FORTH TO [facility]. Initialized on 07/26/24 13:02 - END OF NOTE Assessment/Plan (1) Pneumonia Current Visit: Yes Status: Acute Assessment & Plan: Assessment & Plan: -CT with mild diffuse bilateral patchy groundglass airspace disease with bilateral effusions. Negative for PE -Supplemental oxygen with goal spo2 > 91% -baseline RA - currently RA -RT eval -DuoNebs/INH-solumedrol -ceftriaxone and azithromycin started in ED, will continue -WBC WNL -procal -blood cultures pending -pt refused respiratory viral panel 07/25/24: -WBC reviewed at 11.4 - increase may be secondary to steroids -bcult pending -procal WNL -Pt refuses COVID/FLU/RSV testing 07/26/24: -WBC reviewed and at 15.7 most likely secondary to steroids -Remains on RA 07/27/24: -Dyspnea and cough improved - crackles on auscultation -On RA -Continue ceftriaxone and doxycycline (azithromycin interacts with amiodarone) -WBC reviewed and improving at 13.8 -prednisone discontinued Code(s): J18.9 - PNEUMONIA, UNSPECIFIED ORGANISM (2) Acute respiratory failure with hypoxia Current Visit: Yes Status: Acute Assessment & Plan: -2/2 to pneumonia - see plan above Code(s): J96.01 - ACUTE RESPIRATORY FAILURE WITH HYPOXIA (3) Chest pain Current Visit: Yes Status: Acute Assessment & Plan: -EKG with sinus tachycardia -trops reviewed and uptrending -continue series -echo -repeat ekg in a.m. -cardiology consulted 07/25/24: -Cardiology consult pending -echo pending 07/26: -CP resolved -Discussed case with cardiology - - echo shows improvement of EF of 25-30% - hypotension probits the use of bb or alpesh or arb or arni - if blood pressure rises above sbp of 110 can start metoprolol at 12.5mg bid - can consider uptitration of meds as outpt if the patient shows compliance. Sinus Tachycardia -cardiology consult note reviewed - agree with plan to start amiodarone 400mg TID -for better rate and rhythm control. antiarrhythmics options are limited given his cardiomyopathy and hypotension. Can also consider ivabridine if rates are not controlled. cw anticoagulation. unable to tolerate any other GDMT given his low blood pressure -Cardiology following Code(s): R07.9 - CHEST PAIN, UNSPECIFIED (4) CHF exacerbation Current Visit: Yes Status: Acute Assessment & Plan: -CT mild diffuse bilateral patchy groundglass airspace disease with bilateral effusions -PT states EF at 15%- non-compliant with home meds and life vest - currently does not take anything - does not know which lidar scientist he has seen in the past -No echo on file - will obtain -BNP 7510 -Lasix 40mg bid -Daily weights/ elevate HOB -Strict I&O -optimize electrolytes -Cardiology consult- appreciate recs -Supplemental oxygen with goal spo2 > 91%- baseline RA 07/26/24; -Discussed case with cardiology and agree to recommendations of starting low dose metoprolol once BP is > 110 systolic - will start metoprolol 12.5mg bid today pending this criteria -Will need follow up with cards as OP -Continue lasix -Echo shows improved EF now at 25-30% -Of note UDS + for amphetamines 07/27: -pt euvolemic - discontinue lasix Code(s): I50.9 - HEART FAILURE, UNSPECIFIED (5) Afib Current Visit: Yes Status: Acute Assessment & Plan: -s/p cardiac ablation -EKG with sinus tachycardia HR 112 -cardiology consult 07/25/24: -HR continues to be elevated - no home meds - start digoxin 0.25 mg -cardiology consult pending -EKG with SVT and on tele- no afib noted Code(s): I48.91 - UNSPECIFIED ATRIAL FIBRILLATION (6) Smoker Current Visit: Yes Status: Acute Assessment & Plan: -Advised cessation - nicotine patch Code(s): F17.200 - NICOTINE DEPENDENCE, UNSPECIFIED, UNCOMPLICATED (7) Elevated d-dimer Current Visit: Yes Status: Acute Assessment & Plan: -CTA negative for PE- may be secondary to CHF/COPD exacerbation Code(s): R79.89 - OTHER SPECIFIED ABNORMAL FINDINGS OF BLOOD CHEMISTRY (8) Anemia Current Visit: Yes Status: Acute Assessment & Plan: -Iron studies -Hgb reviewed at 11.4- will monitor 07/25/24: -iron sat at 11% - could use follow up with hematology for iron deficiency anemia - will start ferrous sulfate for now Code(s): D64.9 - ANEMIA, UNSPECIFIED (9) Elevated LFTs Current Visit: Yes Status: Acute Assessment & Plan: -mild - monitor Code(s): R79.89 - OTHER SPECIFIED ABNORMAL FINDINGS OF BLOOD CHEMISTRY (10) Elevated troponin Current Visit: Yes Status: Acute Assessment & Plan: -Cardiology consulted - appreciate recs -Trops reviewed with uptrend 07/25/24: -Troponin series 0.037<0.045>0.037 VTE: lovenox PPI: protonix Dispo: 1-2 days Code(s): J18.9 - PNEUMONIA, UNSPECIFIED ORGANISM (2) Acute respiratory failure with hypoxia Current Visit: Yes Status: Acute Code(s): J96.01 - ACUTE RESPIRATORY FAILURE WITH HYPOXIA (3) Chest pain Current Visit: Yes Status: Acute Code(s): R07.9 - CHEST PAIN, UNSPECIFIED (4) CHF exacerbation Current Visit: Yes Status: Acute Code(s): I50.9 - HEART FAILURE, UNSPECIFIED (5) Afib Current Visit: Yes Status: Acute Code(s): I48.91 - UNSPECIFIED ATRIAL FIBRILLATION (6) Smoker Current Visit: Yes Status: Acute Code(s): F17.200 - NICOTINE DEPENDENCE, UNSPECIFIED, UNCOMPLICATED (7) Elevated d-dimer Current Visit: Yes Status: Acute Code(s): R79.89 - OTHER SPECIFIED ABNORMAL FINDINGS OF BLOOD CHEMISTRY (8) Anemia Current Visit: Yes Status: Acute Code(s): D64.9 - ANEMIA, UNSPECIFIED (9) Elevated LFTs Current Visit: Yes Status: Acute Code(s): R79.89 - OTHER SPECIFIED ABNORMAL FINDINGS OF BLOOD CHEMISTRY (10) Elevated troponin Current Visit: Yes Status: Acute Code(s): R79.89 - OTHER SPECIFIED ABNORMAL FINDINGS OF BLOOD CHEMISTRY
--- NOTE | 2024-07-27 12:29 | XRAY ---
Indication: CHF exacerbation. Comparison: July 24, 2024 Portable chest demonstrates resolved pulmonary edema. No focal infiltrate, consolidation, or large effusion. Heart not enlarged. Bony thorax intact again with osteopenia and degenerative changes. Impression: Nonacute chest.
[2024-07-27] MEDS: Cordarone 200 MG PO SCH (14:37)
[2024-07-27] MEDS: Mylicon 80MG PO PRN (15:06)
[2024-07-27] MEDS: Zofran 4 MG/2 ML VIAL IV PRN (18:25)
[2024-07-28] MEDS: MAALOX ES 30 ML UNIT DOSE PO PRN (03:25)
[2024-07-28 04:41] VITALS: PULSE 100
--- NOTE | 2024-07-28 05:16 | PCM.DS ---
Discharge Summary Date of Admission: 07/24/24 16:05 Date of Discharge: 07/28/24 Admitting Physician: FLOYD ROBERTS MD Consults: Consults on Case 07/24/24 17:04 Consult Cardiology ROUTINE Primary Care Provider: NO FAMILY DOCTOR Allergies Allergies No Known Drug Allergies Allergy (Verified 07/24/24 17:51) Hospital Summary - Hospital Course Hospital Course: HPI: Mr. Mejia is a 59 year old male with a pmhx of tobacco abuse, AFIB (s/p ablation), DDD, and CHF who presented to ED 07/24/24 with complaints of progressive shortness of breath, chest congestion, productive cough with blood- tinged sputum, and wheezing. Onset about two weeks ago. He also reports left sided chest pressure 4/10 on numerical pain scale. No radiation. No associated symptoms. No relieving/aggravating factors. Denies fever,abdominal pain, DUVALL, dizziness, N/V/D. Upon arrival to ED, patient tachypneic, tachycardic, and hy poxic. EKG with sinus tachycardia HR at 116. CT chest demonstrates mild diffuse bilateral patchy groundglass airspace disease with bilateral effusions. Negative for PE. Lab findings remarkable for elevated ddimer (CTA negative for PE), macrocytic anemia with hgb at 11.4, elevated AST and ALT, and uptrending tropinin I 0.045>0.038. BNP 7510. Patient admitted for CHF and COPD exacerbation and pneumonia. Given ceftriaxone,azithromycin, lasix, and solumedrol in ED. Plan for continued diuresis, abx, and steroids. Cardiology consulted. Echo with EF at 25-30 %. Recs to start metoprolol when BP is > 110 - HR continues to be elevated and amiodarone started at 400mg TID-antiarrhythmics options are limited given his cardiomyopathy and hypotension. Can also consider ivabridine if rates are not controlled. cw anticoagulation. unable to tolerate any other GDMT given his low blood pressure 07/25/24: Met with patient bedside. Endorses that he continues to have chest pressure. Dyspnea improved. On RA. HR > 110 consistently. Started digoxin. Cardiac consult pending. Echo pending. Plan for continued diuresis, abx, steroids. 07/26/24: Met with patient bedside. No overnight events noted. Still with some tachycardia. UDS + for amphetamines which patient denies taking. Dyspnea and cough improved. BLE edema resolved. Denies fever,cough, sob, cp, abdominal pain, DUVALL, dizziness, N/V/D. 07/27/24: Cardiology reviewed patients case 07/26/24- amiodarone 400mg tid started for tachycardia. Not much improvement. Lasix discontinued as patient is now euvolemic. Patient endorsing heartburn today. Dyspnea and cough improved. HR remains in the 120's - cardiology following. 07/28: HR improved today. Patient requesting discharge. Has follow up with Dr. Tabares (cardiology) today. Cardiology IP has cleared patient for discharge on amiodarone 400mg TID. Stable for discharge with close follow up today with cardi ology. CXR today shows Pulmonary edema and pneumonia has cleared. Discharge Note New Diagnosis: Pneumonia/sinus tach New Medications: Amiodarone/cefuroxime/doxycycline Follow Up: PCP/cardiology (today) Outpatient testing to order: Latest Assessment & Plan (1) Pneumonia Current Visit: Yes Status: Acute Assessment & Plan: Assessment & Plan: -CT with mild diffuse bilateral patchy groundglass airspace disease with bilateral effusions. Negative for PE -Supplemental oxygen with goal spo2 > 91% -baseline RA - currently RA -RT eval -DuoNebs/INH-solumedrol -ceftriaxone and azithromycin started in ED, will continue -WBC WNL -procal -blood cultures pending -pt refused respiratory viral panel 07/25/24: -WBC reviewed at 11.4 - increase may be secondary to steroids -bcult pending -procal WNL -Pt refuses COVID/FLU/RSV testing 07/26/24: -WBC reviewed and at 15.7 most likely secondary to steroids -Remains on RA 07/27/24: -Dyspnea and cough improved - crackles on auscultation -On RA -Continue ceftriaxone and doxycycline (azithromycin interacts with amiodarone) -WBC reviewed and improving at 13.8 -prednisone discontinued Code(s): J18.9 - PNEUMONIA, UNSPECIFIED ORGANISM (2) Acute respiratory failure with hypoxia Current Visit: Yes Status: Acute Assessment & Plan: -2/2 to pneumonia - see plan above Code(s): J96.01 - ACUTE RESPIRATORY FAILURE WITH HYPOXIA (3) Chest pain Current Visit: Yes Status: Acute Assessment & Plan: -EKG with sinus tachycardia -trops reviewed and uptrending -continue series -echo -repeat ekg in a.m. -cardiology consulted 07/25/24: -Cardiology consult pending -echo pending 07/26: -CP resolved -Discussed case with cardiology - - echo shows improvement of EF of 25-30% - hypotension probits the use of bb or alpesh or arb or arni - if blood pressure rises above sbp of 110 can start metoprolol at 12.5mg bid - can consider uptitration of meds as outpt if the patient shows compliance. Sinus Tachycardia -cardiology consult note reviewed - agree with plan to start amiodarone 400mg TID -for better rate and rhythm control. antiarrhythmics options are limited given his cardiomyopathy and hypotension. Can also consider ivabridine if rates are not controlled. cw anticoagulation. unable to tolerate any other GDMT given his low blood pressure -Cardiology following Code(s): R07.9 - CHEST PAIN, UNSPECIFIED (4) CHF exacerbation Current Visit: Yes Status: Acute Assessment & Plan: -CT mild diffuse bilateral patchy groundglass airspace disease with bilateral effusions -PT states EF at 15%- non-compliant with home meds and life vest - currently do es not take anything - does not know which employee service officer he has seen in the past -No echo on file - will obtain -BNP 7510 -Lasix 40mg bid -Daily weights/ elevate HOB -Strict I&O -optimize electrolytes -Cardiology consult- appreciate recs -Supplemental oxygen with goal spo2 > 91%- baseline RA 07/26/24; -Discussed case with cardiology and agree to recommendations of starting low dose metoprolol once BP is > 110 systolic - will start metoprolol 12.5mg bid today pending this criteria -Will need follow up with cards as OP -Continue lasix -Echo shows improved EF now at 25-30% -Of note UDS + for amphetamines 07/27: -pt euvolemic - discontinue lasix Code(s): I50.9 - HEART FAILURE, UNSPECIFIED (5) Afib Current Visit: Yes Status: Acute Assessment & Plan: -s/p cardiac ablation -EKG with sinus tachycardia HR 112 -cardiology consult 07/25/24: -HR continues to be elevated - no home meds - start digoxin 0.25 mg -cardiology consult pending -EKG with SVT and on tele- no afib noted Code(s): I48.91 - UNSPECIFIED ATRIAL FIBRILLATION (6) Smoker Current Visit: Yes Status: Acute Assessment & Plan: -Advised cessation - nicotine patch Code(s): F17.200 - NICOTINE DEPENDENCE, UNSPECIFIED, UNCOMPLICATED (7) Elevated d-dimer Current Visit: Yes Status: Acute Assessment & Plan: -CTA negative for PE- may be secondary to CHF/COPD exacerbation Code(s): R79.89 - OTHER SPECIFIED ABNORMAL FINDINGS OF BLOOD CHEMISTRY (8) Anemia Current Visit: Yes Status: Acute Assessment & Plan: -Iron studies -Hgb reviewed at 11.4- will monitor 07/25/24: -iron sat at 11% - could use follow up with hematology for iron deficiency anemia - will start ferrous sulfate for now Code(s): D64.9 - ANEMIA, UNSPECIFIED (9) Elevated LFTs Current Visit: Yes Status: Acute Assessment & Plan: -mild - monitor Code(s): R79.89 - OTHER SPECIFIED ABNORMAL FINDINGS OF BLOOD CHEMISTRY (10) Elevated troponin Current Visit: Yes Status: Acute Assessment & Plan: -Cardiology consulted - appreciate recs -Trops reviewed with uptrend 07/25/24: -Troponin series 0.037<0.045>0.037 I spent 35 minutes [id number] with the patient on the day of discharge performing discharge exam, discussing hospital stay and discharge instructions with patient and caregivers, preparation of discharge records, prescriptions & referral forms and addressing any questions/concerns the patient had as documented above. - Vitals & Intake/Output Vital Signs: Vital Signs Temperature 97.8 F 07/28/24 04:00 Pulse Rate 100 H 07/28/24 04:00 Respiratory Rate 17 07/28/24 04:00 Blood Pressure 87/52 07/28/24 04:00 O2 Sat by Pulse Oximetry 96 07/28/24 04:00 Intake & Output: Intake & Output 07/25/24 07/26/24 07/27/24 07/28/24 11:59 11:59 11:59 11:59 Intake Total 1660 1294 2458 1100 Output Total 4500 1950 1200 Balance 1660 -3206 508 -100 Weight 76 kg 69 kg 67 kg - Lab Result Diagrams: 07/28/24 05:13 07/28/24 05:13 Lab Results-Last 24 Hrs: Lab Results-Last 24 Hours 07/27/24 07/27/24 Range/Units 05:05 05:05 WBC 13.8 H (4.23-9.07) x10^3/uL RBC 4.44 L (4.63-6.08) x10^6/uL Hgb 13.5 L (13.7-17.5) g/dL Hct 40.9 (40.1-51.0) % MCV 92.1 (79.0-92.2) fL MCH 30.4 (25.7-32.2) pg MCHC 33.0 (32.3-36.5) g/dL RDW 14.1 (11.6-14.4) % Plt Count 286 (163-337) x10^3/uL MPV 10.3 (9.4-12.4) fL Gran % 77.4 H (34.0-67.9) % Immature Gran % (Auto) 0.6 H (0.001-0.429) % Nucleat RBC Rel Count 0.0 (0.00-0.2) % Eos # (Auto) 0.03 L (0.04-0.54) x10^3/uL Immature Gran # (Auto) 0.08 H (0.001-0.031) x10^3u/L Absolute Lymphs (auto) 2.15 (1.32-3.57) x10^3/uL Absolute Monos (auto) 0.83 H (0.30-0.82) x10^3/uL Absolute Nucleated RBC 0.00 (0.00-0.012) x10^3u/L Lymphocytes % 15.6 L (21.8-53.1) % Monocytes % 6.0 (5.3-12.2) % Eosinophils % 0.2 L (0.8-7.0) % Basophils % 0.2 (0.2-1.2) % Absolute Granulocytes 10.68 H (1.78-5.38) x10^3/uL Basophils # 0.03 (0.01-0.08) x10^3/uL Sodium 140 (135-145) mmol/L Potassium 4.3 (3.5-5.1) mmol/L Chloride 106 (98-107) mmol/L Carbon Dioxide 28 (22-30) mmol/L Anion Gap 10.3 (5-15) MEQ/L BUN 35 H (9-20) mg/dL Creatinine 1.34 H (0.66-1.25) mg/dL Estimated GFR 61.4 ML/MIN Glucose 98 (74-106) mg/dL Calcium 9.2 (8.4-10.2) mg/dL Total Bilirubin 0.30 (0.2-1.3) mg/dL AST 41 (17-59) U/L ALT 74 H (0-50) U/L Alkaline Phosphatase 68 (38-126) U/L Serum Total Protein 6.9 (6.3-8.2) g/dL Albumin 3.9 (3.5-5.0) g/dL Micro Results-Entire Visit: Microbiology 07/24/24 15:04 Blood Culture - Preliminary Blood - Radiology Exams Ordered Rad Exams-Entire Visit: Radiology Procedures Category Date Time Status CHEST 1 VIEW (PORTABLE) Stat Exams 07/27/24 12:07 Completed - Procedures and Test Procedures and Tests throughout Hospitalization: Therapy Orders & Screens 07/24/24 14:58 Respiratory Therapy Assessment DAILY Comment: 07/24/24 17:00 EKG REPEAT IN AM Comment: Diagnosis: Pneumonia, CHF Respiratory Therapy Consult ONCE Comment: Reason For Exam: Diagnosis: Pneumonia, CHF 07/24/24 17:14 Smoking Cessation Education ONCE Comment: Diagnosis: Pneumonia, CHF Smoking Status: Current some day smoker How long have you smoked: years Do you dip or chew tobacco: No 07/26/24 14:22 EKG STAT Comment: Diagnosis: Pneumonia, CHF EKG Reason: Other Discharge Exam General Appearance: no apparent distress Neurologic Exam: alert, oriented x 3, cooperative Eye Exam: PERRL Ears, Nose, Throat Exam: normal ENT inspection Neck Exam: normal inspection Respiratory Exam: lungs clear, diminished breath sounds Cardiovascular Exam: tachycardia Gastrointestinal/Abdomen Exam: soft, normal bowel sounds Male Genitalia Exam: deferred Rectal Exam: deferred Back Exam: normal inspection Extremity Exam: normal inspection Skin Exam: normal color Final Diagnosis/Problem List - Final Discharge Diagnosis/Problem (1) Pneumonia Current Visit: Yes Status: Acute Code(s): J18.9 - PNEUMONIA, UNSPECIFIED ORGANISM (2) Acute respiratory failure with hypoxia Current Visit: Yes Status: Resolved Code(s): J96.01 - ACUTE RESPIRATORY FAILURE WITH HYPOXIA (3) Chest pain Current Visit: Yes Status: Resolved Code(s): R07.9 - CHEST PAIN, UNSPECIFIED (4) CHF exacerbation Current Visit: Yes Status: Acute Code(s): I50.9 - HEART FAILURE, UNSPECIFIED (5) Afib Current Visit: Yes Status: Chronic Code(s): I48.91 - UNSPECIFIED ATRIAL FIBRILLATION (6) Smoker Current Visit: Yes Status: Chronic Code(s): F17.200 - NICOTINE DEPENDENCE, UNSPECIFIED, UNCOMPLICATED (7) Elevated d-dimer Current Visit: Yes Status: Acute Code(s): R79.89 - OTHER SPECIFIED ABNORMAL FINDINGS OF BLOOD CHEMISTRY (8) Anemia Current Visit: Yes Status: Chronic Code(s): D64.9 - ANEMIA, UNSPECIFIED (9) Elevated LFTs Current Visit: Yes Status: Acute Code(s): R79.89 - OTHER SPECIFIED ABNORMAL FINDINGS OF BLOOD CHEMISTRY (10) Elevated troponin Current Visit: Yes Status: Acute Code(s): R79.89 - OTHER SPECIFIED ABNORMAL FINDINGS OF BLOOD CHEMISTRY (11) Sinus tachycardia Current Visit: Yes Status: Acute Code(s): R00.0 - TACHYCARDIA, UNSPECIFIED - Discharge Discharge Date: 07/28/24 Disposition: Home, Self-Care Condition: Stable Prescriptions: New Amiodarone HCl 400 mg PO TID 30 Days #90 tablet cefuroxime axetiL [Cefuroxime] 500 mg PO BID 7 Days #14 tablet Ferrous Sulfate 325 mg [Feosol 325 mg] 325 mg PO DAILY 30 Days #30 tablet Nicotine 21 mg [Nicoderm CQ 21 MG] 21 mg TOP Q24H10 42 Days #42 patch Doxycycline Hyclate 100 mg [Vibramycin 100 MG] 100 mg PO BID 7 Days #14 tablet Follow up with: CASSIE WASHBURN NP [NON-STAFF PHY W/O PRIVILEGES] - GURVINDER TABARES MD [NON-STAFF PHY W/O PRIVILEGES] - 07/28/24 2:30 pm
[2024-07-28 05:20] LABS: Absolute Neutrophil Ct (ANC) 9.22 x10^3/uL (1.78-5.38); BASOPHIL % 0.3 % (0.2-1.2); Basophil (Absolute #) 0.04 x10^3/uL (0.01-0.08); Eosinophil % 0.5 % (0.8-7.0); Eosinophil (Absolute #) 0.06 x10^3/uL (0.04-0.54); Hematocrit 38.7 % (40.1-51.0); Hemoglobin 12.5 g/dL (13.7-17.5); IMMATURE GRAN # 0.06 x10^3u/L (0.001-0.031); IMMATURE GRAN % 0.5 % (0.001-0.429); Lymphocyte (Absolute #) 1.44 x10^3/uL (1.32-3.57); Lymphocytes % 12.5 % (21.8-53.1); Mean Cell Volume 92.4 fL (79.0-92.2); Mean Corpuscular Hemoglobin 29.8 pg (25.7-32.2); Mean Corpuscular Hgb Concent. 32.3 g/dL (32.3-36.5); Mean Platelet Volume 10.4 fL (9.4-12.4); Monocyte (Absolute #) 0.66 x10^3/uL (0.30-0.82); Monocytes % 5.7 % (5.3-12.2); Neutrophil % 80.5 % (34.0-67.9); Platelet Count 263 x10^3/uL (163-337); Red Blood Count 4.19 x10^6/uL (4.63-6.08); Red Cell Distribution Width 14.1 % (11.6-14.4); White Blood Count 11.5 x10^3/uL (4.23-9.07)
[2024-07-28 05:47] LABS: ALBUMIN 3.8 g/dL (3.5-5.0); ANION GAP 9.6 MEQ/L (5-15); BILIRUBIN,TOTAL 0.4 mg/dL (0.2-1.3); Calcium 9.1 mg/dL (8.4-10.2); Creatinine 1 1.27 mg/dL (0.66-1.25); EST GLOMERULAR FILTRATION RATE 65.5 ML/MIN; Potassium 4.6 mmol/L (3.5-5.1); Total Protein 6.7 g/dL (6.3-8.2)
[2024-07-28 07:06] VITALS: BP 89/59; RESP 16; TEMP 97.6; O2SAT 94
== END 2024-07-28 09:20 | disposition home or self-care (01) ==
LOC: ED 11:32 → MED SURG 16:05
PROVIDERS: ADMIT Internal Medicine; ATTEND Internal Medicine
DX: J18.9 Pneumonia, unspecified organism (principal); J96.01 Acute respiratory failure with hypoxia; R07.9 Chest pain, unspecified; R00.0 Tachycardia, unspecified; I50.9 Heart failure, unspecified; I48.91 Unspecified atrial fibrillation; F17.200 Nicotine dependence, unspecified, uncomplicated; R79.89 Other specified abnormal findings of blood chemistry; D64.9 Anemia, unspecified; R60.0 Localized edema
CPT/HCPCS: 36415; 71045; 71260; 80053; 80307; 82607; 82728; 82746; 83540; 83550; 83880; 84145; 84443; 84484; 85025; 85379; 87040; 93005; 93041; 93306; 94640; 94760; 94762; 96365; 96374; 96375; 99285; Q3014; 93268; J0456; J0696; J1160; J1650; J1940; J2405; J2919; J7609; A9270-GY; G0378

== ENCOUNTER 2024-08-21 00:25 | Observation (INO) | payer OTHER ==
--- NOTE | 2024-08-21 01:13 | ERPHSYRPT ---
- History of Present Illness Time Seen by Provider: 08/21/24 01:05 Source: patient Exam Limitations: no limitations Patient Subjective Stated Complaint: shortness of breath Triage Nursing Assessment: pt ambulated into ER without diff. Pt c/o shortness of breath x3 days and seems to be getting worse. Lungs clear, slightly diminished to rt lower lobe, heart tones reg/tachy. Pt has a prod cough at times, yellow/cream sputum but at other times has a dry, hacky cough. Physician History: 59yo m presents via private vehicle for sob and cough that has been ongoing x 3d. Pt denies any activity at onset. Pt reports the sob has progressively worsened. Pt reports hx of COPD and CHF. Pt reports his HR has also been elevat ed and he has not been able to bring it down. Pt denies any cp, n/v/abdominal pain. Pt reports the cough is dry in nature. Pt denies any fevers at home. Timing/Duration: day(s) Cough Quality/Degree: moderate, dry cough Possible Cause: occasional episodes Modifying Factors: Improves With: nothing Associated Symptoms: cough, shortness of breath, wheezing, No fever, No chest pain/soreness, No nasal congestion Allergies/Adverse Reactions: No Known Drug Allergies Allergy (Verified 08/21/24 00:47) Hx Tetanus, Diphtheria Vaccination/Date Given: No Hx Influenza Vaccination/Date Given: No Hx Pneumococcal Vaccination/Date Given: No Travel Risk - International Travel Have you traveled outside of the country in past 3 weeks: No - Emerging Infectious Disease Are you exhibiting symptoms associated with any current EIDs: Yes Symptoms: Cough: New Onset, Shortness of Breath - Review of Systems Constitutional: No Symptoms Respiratory: Cough, Dyspnea, Dyspnea on Exertion (BLISS), Wheezing, No Stridor Cardiac: No Symptoms Abdominal/Gastrointestinal: No Symptoms - Past Medical History Pertinent Past Medical History: Yes Neurological History: No Pertinent History ENT History: No Pertinent History Cardiac History: Arrhythmia, Congestive Heart Failure, Other Respiratory History: No Pertinent History Endocrine Medical History: No Pertinent History Musculoskeletal History: Degenerative Disk Disease GI Medical History: No Pertinent History History: No Pertinent History Psycho-Social History: No Pertinent History Male Reproductive Disorders: No Pertinent History Other Medical History: chf - Past Surgical History Past Surgical History: Yes Neuro Surgical History: No Pertinent History Cardiac: Other Respiratory: No Pertinent History Gastrointestinal: No Pertinent History Genitourinary: No Pertinent History Musculoskeletal: Orthopedic Surgery Male Surgical History: No Pertinent History Other Surgical History: right knee. left leg - Social History Smoking Status: Former smoker How long have you smoked: years Exposure to second hand smoke: Yes Drug Use: none - Social Determinants of Health Will the patient participate in the screening: Yes Do you worry about a steady place to live?: Yes Do you have any problems with any of the following?: No known problems In the past 12 months,have you had to go without utilities?: Yes Transportation Issues: Yes Has anyone in your support network made you feel unsafe?: No Have you or anyone in your house had to go without enough: No - Nursing Vital Signs Nursing Vital Signs: Initial Vital Signs Pulse Rate 126 H 08/21/24 00:45 Respiratory Rate 29 H 08/21/24 00:45 Blood Pressure 111/79 08/21/24 00:45 O2 Sat by Pulse Oximetry 94 L 08/21/24 00:45 Pain Scale Pain Intensity 0 - Physical Exam General Appearance: no apparent distress, alert Respiratory Exam: airway intact, diminished breath sounds (diffusely), rhonchi, wheezing (b/l), No chest tenderness, No respiratory distress Cardiovascular Exam: normal heart sounds, normal peripheral pulses, tachycardia Gastrointestinal/Abdomen Exam: soft, No tenderness, No distention Neurologic Exam: alert, oriented x 3, cooperative SpO2 Interpretation: normal SpO2: 95 O2 Delivery: Room Air - Course EKG Interpreted by Me: RATE ([id number]), Sinus Tach, Non-specific ST Changes (not suggestive of acute ischemia) Ordered Tests: Active Orders 24 hr Category Date Time Status EKG-ER Only STAT Care 08/21/24 01:10 Active ACO SDOH Referral ONCE Cons 08/21/24 01:07 Active CHEST 1 VIEW (PORTABLE) Stat Exams 08/21/24 01:11 Taken CHEST WITH CONTRAST [CT] Stat Exams 08/21/24 01:36 Completed ABG [ARTERIAL BLOOD GASES] Stat Lab 08/21/24 01:40 Completed CBC W DIFF Stat Lab 08/21/24 01:15 Completed CMP Stat Lab 08/21/24 01:15 Completed D-DIMER QUANTITATIVE Stat Lab 08/21/24 01:15 Completed NT PRO BNPII Stat Lab 08/21/24 01:15 Completed PROCALCITONIN Stat Lab 08/21/24 01:30 Completed TROPONIN Q4H Lab 08/21/24 01:15 Completed TROPONIN Q4H Lab 08/21/24 03:26 Completed TROPONIN Q4H Lab 08/21/24 09:15 Ordered Urine Triage Profile Stat Lab 08/21/24 03:31 Completed Respiratory Therapy Assessment DAILY RT 08/21/24 01:26 Active Medication Summary Generic Name Dose Route Start Last Admin Trade Name Freq PRN Reason Stop Dose Admin Sodium Chloride 1,000 mls @ 150 mls/hr 08/21/24 01:15 08/21/24 03:14 Sodium Chloride 0.9% 1000 Ml IV 09/20/24 01:14 100 mls/hr .[id number] DMITRIY Infusion Discontinued Medications Generic Name Dose Route Start Last Admin Trade Name Freq PRN Reason Stop Dose Admin Albuterol/Ipratropium 3 ml 08/21/24 01:12 08/21/24 01:26 Ipratropium/Albuterol Sulfate 3 Ml Ampul.Neb IH 08/21/24 01:13 3 ml STAT ONE Administration Albuterol/Ipratropium Confirm 08/21/24 01:20 Ipratropium/Albuterol Sulfate 3 Ml Ampul.Neb Administered 08/21/24 01:21 Dose 3 ml IH .STK-MED ONE Methylprednisolone Sodium 0 mg 08/21/24 02:20 08/21/24 02:29 Succinate 125 mg/ Sterile IV 08/21/24 02:21 125 mg Water 2 ml STAT ONE Administration Furosemide 40 mg 08/21/24 02:56 08/21/24 03:09 Furosemide 40 Mg/4 Ml Vial IV 08/21/24 02:57 40 mg STAT ONE Administration Furosemide Confirm 08/21/24 03:08 Furosemide 40 Mg/4 Ml Vial Administered 08/21/24 03:09 Dose 40 mg .ROUTE .STK-MED ONE Guaifenesin/Dextromethorphan 10 ml 08/21/24 02:21 08/21/24 02:48 Guaifenesin/D-Methorphan Hb 118 Ml Syrup PO 08/21/24 02:22 10 ml STAT ONE Administration Ceftriaxone Sodium 1 gm in 100 mls @ 200 mls/hr 08/21/24 03:19 08/21/24 03:25 Rocephin 1 Gm / 100 Ml Nacl IV 08/21/24 03:48 200 mls/hr STAT ONE 200 mls/hr Administration Ceftriaxone Sodium Confirm 08/21/24 03:24 Rocephin 1 Gm / 100 Ml Nacl Administered 08/21/24 03:25 Dose 1 gm in 100 mls @ ud IV .STK-MED ONE Methylprednisolone Sodium Succinate Confirm 08/21/24 02:25 Methylprednis Sod Succ 125 Mg/2 Ml Vial Administered 08/21/24 02:26 Dose 125 mg .ROUTE .STK-MED ONE Ondansetron HCl 4 mg 08/21/24 03:16 08/21/24 03:21 Zofran 4 Mg/Udtablet Orally Disintegrating PO 08/21/24 03:17 4 mg STAT ONE Administration Ondansetron HCl Confirm 08/21/24 03:18 Ondansetron Hcl 4 Mg/2 Ml Vial Administered 08/21/24 03:19 Dose 4 mg .ROUTE .STK-MED ONE Ondansetron HCl Confirm 08/21/24 03:20 Zofran 4 Mg/Udtablet Orally Disintegrating Administered 08/21/24 03:21 Dose 4 mg .ROUTE .STK-MED ONE Sterile Water Confirm 08/21/24 02:25 Water For Injection,Sterile 10 Ml Vial Administered 08/21/24 02:26 Dose 10 ml IJ .STK-MED ONE Lab/Rad Data: Laboratory Result Diagrams 08/21/24 01:15 08/21/24 01:15 Laboratory Results 08/21/24 08/21/24 08/21/24 Range/Units 03:31 03:26 01:40 WBC (4.23-9.07) x10^3/uL RBC (4.63-6.08) x10^6/uL Hgb (13.7-17.5) g/dL Hct (40.1-51.0) % MCV (79.0-92.2) fL MCH (25.7-32.2) pg MCHC (32.3-36.5) g/dL RDW (11.6-14.4) % Plt Count (163-337) x10^3/uL MPV (9.4-12.4) fL Gran % (34.0-67.9) % Immature Gran % (Auto) (0.001-0.429) % Nucleat RBC Rel Count (0.00-0.2) % Eos # (Auto) (0.04-0.54) x10^3/uL Immature Gran # (Auto) (0.001-0.031) x10^3u/L Absolute Lymphs (auto) (1.32-3.57) x10^3/uL Absolute Monos (auto) (0.30-0.82) x10^3/uL Absolute Nucleated RBC (0.00-0.012) x10^3u/L Lymphocytes % (21.8-53.1) % Monocytes % (5.3-12.2) % Eosinophils % (0.8-7.0) % Basophils % (0.2-1.2) % Absolute Granulocytes (1.78-5.38) x10^3/uL Basophils # (0.01-0.08) x10^3/uL D-Dimer (0.0-0.50) mg/L Puncture Site RIGHT BRACHIAL pCO2 32 L (35-45) mmHg pO2 68 L (75-100) mmHg Base Excess -3.5 L (-2.0-2.0) O2 Saturation 92.7 L (94-100) g/dF ABG pH 7.41 (7.35-7.45) ABG HCO3 20.3 L (22-28) ABG O2 Sat (Measured) 94.3 L (95-100) % Shaun Test NOT APPLICABLE Hemoglobin 12.3 Carboxyhemoglobin 1.2 (0.0-6.9) % THgb Methemoglobin 0.5 L (1.4-1.5) % Temperature 37.0 C POC O2 Flow Rate 21 % Sodium (135-145) mmol/L Potassium 4.6 (3.5-5.1) mmol/L Chloride (98-107) mmol/L Carbon Dioxide (22-30) mmol/L Anion Gap (5-15) MEQ/L BUN (9-20) mg/dL Creatinine (0.66-1.25) mg/dL Estimated GFR ML/MIN Glucose (74-106) mg/dL Calcium (8.4-10.2) mg/dL Total Bilirubin (0.2-1.3) mg/dL AST (17-59) U/L ALT (0-50) U/L Alkaline Phosphatase (38-126) U/L Troponin I 0.067 H* (0.000-0.033) ng/mL NT-Pro-B Natriuret Pep (<300) pg/mL Serum Total Protein (6.3-8.2) g/dL Albumin (3.5-5.0) g/dL Procalcitonin (0.030-0.080) ng/mL Urine Opiates Level NEGATIVE (NEGATIVE) Ur Methadone NEGATIVE (NEGATIVE) Urine Barbiturates NEGATIVE (NEGATIVE) Ur Phencyclidine (PCP) NEGATIVE (NEGATIVE) Urine Amphetamine POSITIVE A (NEGATIVE) U Benzodiazepine Level NEGATIVE (NEGATIVE) Urine Cocaine NEGATIVE (NEGATIVE) Urine Marijuana (THC) NEGATIVE (NEGATIVE) Influenza Type A Ag (NEGATIVE) Influenza Type B Ag (NEGATIVE) RSV (PCR) (NEGATIVE) SARS-CoV-2 (PCR) (NEGATIVE) 08/21/24 08/21/24 08/21/24 Range/Units 01:30 01:30 01:15 WBC (4.23-9.07) x10^3/uL RBC (4.63-6.08) x10^6/uL Hgb (13.7-17.5) g/dL Hct (40.1-51.0) % MCV (79.0-92.2) fL MCH (25.7-32.2) pg MCHC (32.3-36.5) g/dL RDW (11.6-14.4) % Plt Count (163-337) x10^3/uL MPV (9.4-12.4) fL Gran % (34.0-67.9) % Immature Gran % (Auto) (0.001-0.429) % Nucleat RBC Rel Count (0.00-0.2) % Eos # (Auto) (0.04-0.54) x10^3/uL Immature Gran # (Auto) (0.001-0.031) x10^3u/L Absolute Lymphs (auto) (1.32-3.57) x10^3/uL Absolute Monos (auto) (0.30-0.82) x10^3/uL Absolute Nucleated RBC (0.00-0.012) x10^3u/L Lymphocytes % (21.8-53.1) % Monocytes % (5.3-12.2) % Eosinophils % (0.8-7.0) % Basophils % (0.2-1.2) % Absolute Granulocytes (1.78-5.38) x10^3/uL Basophils # (0.01-0.08) x10^3/uL D-Dimer (0.0-0.50) mg/L Puncture Site pCO2 (35-45) mmHg pO2 (75-100) mmHg Base Excess (-2.0-2.0) O2 Saturation (94-100) g/dF ABG pH (7.35-7.45) ABG HCO3 (22-28) ABG O2 Sat (Measured) (95-100) % Shaun Test Hemoglobin Carboxyhemoglobin (0.0-6.9) % THgb Methemoglobin (1.4-1.5) % Temperature C POC O2 Flow Rate % Sodium (135-145) mmol/L Potassium (3.5-5.1) mmol/L Chloride (98-107) mmol/L Carbon Dioxide (22-30) mmol/L Anion Gap (5-15) MEQ/L BUN (9-20) mg/dL Creatinine (0.66-1.25) mg/dL Estimated GFR ML/MIN Glucose (74-106) mg/dL Calcium (8.4-10.2) mg/dL Total Bilirubin (0.2-1.3) mg/dL AST (17-59) U/L ALT (0-50) U/L Alkaline Phosphatase (38-126) U/L Troponin I (0.000-0.033) ng/mL NT-Pro-B Natriuret Pep 16076 (<300) pg/mL Serum Total Protein (6.3-8.2) g/dL Albumin (3.5-5.0) g/dL Procalcitonin 0.106 H (0.030-0.080) ng/mL Urine Opiates Level (NEGATIVE) Ur Methadone (NEGATIVE) Urine Barbiturates (NEGATIVE) Ur Phencyclidine (PCP) (NEGATIVE) Urine Amphetamine (NEGATIVE) U Benzodiazepine Level (NEGATIVE) Urine Cocaine (NEGATIVE) Urine Marijuana (THC) (NEGATIVE) Influenza Type A Ag NEGATIVE (NEGATIVE) Influenza Type B Ag NEGATIVE (NEGATIVE) RSV (PCR) NEGATIVE (NEGATIVE) SARS-CoV-2 (PCR) NEGATIVE (NEGATIVE) 08/21/24 08/21/24 08/21/24 Range/Units 01:15 01:15 01:15 WBC (4.23-9.07) x10^3/uL RBC (4.63-6.08) x10^6/uL Hgb (13.7-17.5) g/dL Hct (40.1-51.0) % MCV (79.0-92.2) fL MCH (25.7-32.2) pg MCHC (32.3-36.5) g/dL RDW (11.6-14.4) % Plt Count (163-337) x10^3/uL MPV (9.4-12.4) fL Gran % (34.0-67.9) % Immature Gran % (Auto) (0.001-0.429) % Nucleat RBC Rel Count (0.00-0.2) % Eos # (Auto) (0.04-0.54) x10^3/uL Immature Gran # (Auto) (0.001-0.031) x10^3u/L Absolute Lymphs (auto) (1.32-3.57) x10^3/uL Absolute Monos (auto) (0.30-0.82) x10^3/uL Absolute Nucleated RBC (0.00-0.012) x10^3u/L Lymphocytes % (21.8-53.1) % Monocytes % (5.3-12.2) % Eosinophils % (0.8-7.0) % Basophils % (0.2-1.2) % Absolute Granulocytes (1.78-5.38) x10^3/uL Basophils # (0.01-0.08) x10^3/uL D-Dimer 1.06 H* (0.0-0.50) mg/L Puncture Site pCO2 (35-45) mmHg pO2 (75-100) mmHg Base Excess (-2.0-2.0) O2 Saturation (94-100) g/dF ABG pH (7.35-7.45) ABG HCO3 (22-28) ABG O2 Sat (Measured) (95-100) % Shaun Test Hemoglobin Carboxyhemoglobin (0.0-6.9) % THgb Methemoglobin (1.4-1.5) % Temperature C POC O2 Flow Rate % Sodium 135 (135-145) mmol/L Potassium 4.9 (3.5-5.1) mmol/L Chloride 102 (98-107) mmol/L Carbon Dioxide 23 (22-30) mmol/L Anion Gap 14.8 (5-15) MEQ/L BUN 24 H (9-20) mg/dL Creatinine 1.27 H (0.66-1.25) mg/dL Estimated GFR 65.5 ML/MIN Glucose 125 H (74-106) mg/dL Calcium 9.1 (8.4-10.2) mg/dL Total Bilirubin 1.00 (0.2-1.3) mg/dL AST 140 H (17-59) U/L ALT 154 H (0-50) U/L Alkaline Phosphatase 94 (38-126) U/L Troponin I 0.067 H* (0.000-0.033) ng/mL NT-Pro-B Natriuret Pep (<300) pg/mL Serum Total Protein 6.6 (6.3-8.2) g/dL Albumin 4.0 (3.5-5.0) g/dL Procalcitonin (0.030-0.080) ng/mL Urine Opiates Level (NEGATIVE) Ur Methadone (NEGATIVE) Urine Barbiturates (NEGATIVE) Ur Phencyclidine (PCP) (NEGATIVE) Urine Amphetamine (NEGATIVE) U Benzodiazepine Level (NEGATIVE) Urine Cocaine (NEGATIVE) Urine Marijuana (THC) (NEGATIVE) Influenza Type A Ag (NEGATIVE) Influenza Type B Ag (NEGATIVE) RSV (PCR) (NEGATIVE) SARS-CoV-2 (PCR) (NEGATIVE) 08/21/24 Range/Units 01:15 WBC 9.8 H (4.23-9.07) x10^3/uL RBC 4.03 L (4.63-6.08) x10^6/uL Hgb 12.1 L (13.7-17.5) g/dL Hct 37.3 L (40.1-51.0) % MCV 92.6 H (79.0-92.2) fL MCH 30.0 (25.7-32.2) pg MCHC 32.4 (32.3-36.5) g/dL RDW 14.0 (11.6-14.4) % Plt Count 201 (163-337) x10^3/uL MPV 10.7 (9.4-12.4) fL Gran % 72.7 H (34.0-67.9) % Immature Gran % (Auto) 0.3 (0.001-0.429) % Nucleat RBC Rel Count 0.0 (0.00-0.2) % Eos # (Auto) 0.08 (0.04-0.54) x10^3/uL Immature Gran # (Auto) 0.03 (0.001-0.031) x10^3u/L Absolute Lymphs (auto) 1.45 (1.32-3.57) x10^3/uL Absolute Monos (auto) 1.04 H (0.30-0.82) x10^3/uL Absolute Nucleated RBC 0.00 (0.00-0.012) x10^3u/L Lymphocytes % 14.9 L (21.8-53.1) % Monocytes % 10.7 (5.3-12.2) % Eosinophils % 0.8 (0.8-7.0) % Basophils % 0.6 (0.2-1.2) % Absolute Granulocytes 7.09 H (1.78-5.38) x10^3/uL Basophils # 0.06 (0.01-0.08) x10^3/uL D-Dimer (0.0-0.50) mg/L Puncture Site pCO2 (35-45) mmHg pO2 (75-100) mmHg Base Excess (-2.0-2.0) O2 Saturation (94-100) g/dF ABG pH (7.35-7.45) ABG HCO3 (22-28) ABG O2 Sat (Measured) (95-100) % Shaun Test Hemoglobin Carboxyhemoglobin (0.0-6.9) % THgb Methemoglobin (1.4-1.5) % Temperature C POC O2 Flow Rate % Sodium (135-145) mmol/L Potassium (3.5-5.1) mmol/L Chloride (98-107) mmol/L Carbon Dioxide (22-30) mmol/L Anion Gap (5-15) MEQ/L BUN (9-20) mg/dL Creatinine (0.66-1.25) mg/dL Estimated GFR ML/MIN Glucose (74-106) mg/dL Calcium (8.4-10.2) mg/dL Total Bilirubin (0.2-1.3) mg/dL AST (17-59) U/L ALT (0-50) U/L Alkaline Phosphatase (38-126) U/L Troponin I (0.000-0.033) ng/mL NT-Pro-B Natriuret Pep (<300) pg/mL Serum Total Protein (6.3-8.2) g/dL Albumin (3.5-5.0) g/dL Procalcitonin (0.030-0.080) ng/mL Urine Opiates Level (NEGATIVE) Ur Methadone (NEGATIVE) Urine Barbiturates (NEGATIVE) Ur Phencyclidine (PCP) (NEGATIVE) Urine Amphetamine (NEGATIVE) U Benzodiazepine Level (NEGATIVE) Urine Cocaine (NEGATIVE) Urine Marijuana (THC) (NEGATIVE) Influenza Type A Ag (NEGATIVE) Influenza Type B Ag (NEGATIVE) RSV (PCR) (NEGATIVE) SARS-CoV-2 (PCR) (NEGATIVE) - Progress Progress: re-examined Air Movement: fair Progress Note: 08/21/24 02:23 d dimer elevated, CTA chest ordered troponin elevated 0.067, repeat pending 08/21/24 02:56 BNP 39429 - will start lasix 40mg IV wbc 9k 08/21/24 03:20 cxr suggestive of right sided pna - will start rocephin IV 08/21/24 03:22 fluids held 2/2 elevated BNP and pleural fluid on CT pt continues to be tachycardic- likely 2/2 persistent cough 08/21/24 03:27 08/21/24 04:28 CT chest showed: No obvious pulmonary embolism. Mild bilateral pleural effusion with basal subsegmental collapse of both lower lobes are seen Multifocal patchy ground-glass opacities are noted involving bilateral lungs ;more on right side - likely Infective. Diffuse smooth interlobular septal thickening are noted involving both lungs - possibility of pulmonary congestion. repeat troponin 0.067 HR continues to be 110s UDS + for amphetamines BP and O2 sat have been stable, pt tolerating 2L O2nc well plan to admit for obs 08/21/24 04:49 i discussed pt case w/ Dr Montoya (hospitalist) who is willing to accept for obs Blood Culture(s) Obtained: No Antibiotics given: Yes Will see patient in: hospital (observation) Counseled pt/family regarding: lab results, diagnosis, need for follow-up, rad results Medical Desision Making - Diagnostic Testing Diagnostic test were ordered, analyzed, and reviewed by me: Yes Radiological Interpretation: Reviewed by me, Teleradiologist Report - Risk of complications The pt has a high risk of morbidity or mortality based on: Decision regarding hospitilization or escalation of hosp level of care - Departure Departure Disposition: Observation Clinical Impression: Sinus tachycardia, Elevated d-dimer, SOB (shortness of breath) Pulmonary edema Qualifiers: Chronicity: acute Qualified Code(s): J81.0 - Acute pulmonary edema Pneumonia Qualifiers: Pneumonia type: due to unspecified organism Laterality: bilateral Lung location: unspecified part of lung Qualified Code(s): J18.9 - Pneumonia, unspecified organism CHF exacerbation Qualifiers: Heart failure type: unspecified Qualified Code(s): I50.9 - Heart failure, unspecified Condition: Stable Critical Care Time: No Referrals: DOCTOR,NO FAMILY [Primary Care Provider] - Follow up/PCP as directed Instructions: Heart Failure
[2024-08-21 01:17] LABS: Absolute Neutrophil Ct (ANC) 7.09 x10^3/uL (1.78-5.38); BASOPHIL % 0.6 % (0.2-1.2); Basophil (Absolute #) 0.06 x10^3/uL (0.01-0.08); Eosinophil % 0.8 % (0.8-7.0); Eosinophil (Absolute #) 0.08 x10^3/uL (0.04-0.54); Hematocrit 37.3 % (40.1-51.0); Hemoglobin 12.1 g/dL (13.7-17.5); IMMATURE GRAN # 0.03 x10^3u/L (0.001-0.031); IMMATURE GRAN % 0.3 % (0.001-0.429); Lymphocyte (Absolute #) 1.45 x10^3/uL (1.32-3.57); Lymphocytes % 14.9 % (21.8-53.1); Mean Cell Volume 92.6 fL (79.0-92.2); Mean Corpuscular Hgb Concent. 32.4 g/dL (32.3-36.5); Mean Platelet Volume 10.7 fL (9.4-12.4); Monocyte (Absolute #) 1.04 x10^3/uL (0.30-0.82); Monocytes % 10.7 % (5.3-12.2); Neutrophil % 72.7 % (34.0-67.9); Platelet Count 201 x10^3/uL (163-337); Red Blood Count 4.03 x10^6/uL (4.63-6.08); White Blood Count 9.8 x10^3/uL (4.23-9.07)
[2024-08-21] MEDS ORDERED: DUONEB 0.5-3 MG/3 ml Neb IH ONE (01:20)
[2024-08-21 01:24] LABS: ANION GAP 14.8 MEQ/L (5-15); Calcium 9.1 mg/dL (8.4-10.2); Creatinine 1 1.27 mg/dL (0.66-1.25); EST GLOMERULAR FILTRATION RATE 65.5 ML/MIN; Potassium 4.9 mmol/L (3.5-5.1); Total Protein 6.6 g/dL (6.3-8.2)
[2024-08-21] MEDS ORDERED: Sodium Chloride 0.9% 1000 ML 1,000 ML ONE (01:25)
[2024-08-21] MEDS: DUONEB 0.5-3 MG/3 ml Neb IH ONE (01:26)
[2024-08-21] MEDS: Sodium Chloride 0.9% 1000 ML 1,000 ML IV SCH (01:27)
[2024-08-21 01:48] LABS: ABG HEMOGLOBIN 12.3; ABG POTASSIUM 4.6 (3.5-5.1); ABG SITE RIGHT BRACHIAL; ARTERIAL BLD GAS O2 SATURATION 94.3 % (95-100); ARTERIAL BLOOD GAS BASE EXCESS -3.5 (-2.0-2.0); ARTERIAL BLOOD GAS FIO2 21 %; ARTERIAL BLOOD GAS PCO2 32 mmHg (35-45); ARTERIAL BLOOD GAS PO2 68 mmHg (75-100); ARTERIAL BLOOD GAS pH 7.41 (7.35-7.45); CARBOXYHEMOGLOBIN 1.2 % THgb (0.0-6.9); HCO3- 20.3 (22-28); HGB O2 SAT 92.7 g/dF (94-100); Methhemoglobin 0.5 % (1.4-1.5)
[2024-08-21] MEDS ORDERED: solu-MEDROL ONE (02:25)
[2024-08-21] MEDS ORDERED: Sterile H2O 10 ml IJ ONE (02:25)
[2024-08-21] MEDS: solu-MEDROL 125 MG, Sterile H2O 10 ml 2 ML IV ONE (02:29)
[2024-08-21] MEDS: Robitussin-Dm Syrup PO ONE (02:48)
[2024-08-21] MEDS ORDERED: Lasix 40 MG/4 ML ONE (03:08)
[2024-08-21] MEDS: Lasix 40 MG/4 ML IV ONE (03:09)
[2024-08-21] MEDS ORDERED: Zofran 4 MG/2 ML VIAL ONE (03:18)
[2024-08-21] MEDS ORDERED: ZOFRAN ODT 4 MG ONE (03:20)
[2024-08-21] MEDS: ZOFRAN ODT 4 MG PO ONE (03:21)
[2024-08-21] MEDS ORDERED: ROCEPHIN 1 GM / 100 ML NaCl 1 GM/100 ML IVPB IV ONE (03:24)
[2024-08-21] MEDS: ROCEPHIN 1 GM / 100 ML NaCl 1 GM/100 ML IVPB IV ONE (03:25)
--- NOTE | 2024-08-21 03:50 | XRAY ---
CLINICAL HISTORY: PE r/o, sob, tachycardia COMPARISON: None. TECHNIQUE: Contiguous axial images were obtained from the neck base through the upper abdomen following intravenous administration of contrast material. If IV contrast material had not been administered, the likelihood of detecting abnormalities relevant to the patient's condition would have been substantially decreased. In addition, sagittal and coronal reconstructions were performed. CT scan was performed according to ALARA (as low as reasonable achievable). FINDINGS: Mild bilateral pleural effusion with basal subsegmental collapse of both lower lobes are seen Multifocal patchy ground-glass opacities are noted involving bilateral lungs ;more on right side Diffuse smooth interlobular septal thickening are noted involving both lungs - possibility of pulmonary congestion. Rest of lungs are clear, with no focal areas of consolidation. No pulmonary nodules are seen. The central airways are patent. No pneumothorax is seen. No axillary, hilar, or mediastinal adenopathy is identified. The visualized thyroid is unremarkable. The heart, aorta, and pulmonary arteries are of normal size and configuration. No pericardial effusion is identified. Imaged portions of the upper abdomen are unremarkable. No aggressive appearing osseous lesions are identified. IMPRESSION: No obvious pulmonary embolism. Mild bilateral pleural effusion with basal subsegmental collapse of both lower lobes are seen Multifocal patchy ground-glass opacities are noted involving bilateral lungs ;more on right side - likely Infective. Diffuse smooth interlobular septal thickening are noted involving both lungs - possibility of pulmonary congestion. Electronically Signed by: Santo Early MD. (08/21/2024 03:46:53 EST)
[2024-08-21 04:02] LABS: Amphetamine,Urine POSITIVE (NEGATIVE); Barbiturate,Urine NEGATIVE (NEGATIVE); Benzodiazepine,Urine NEGATIVE (NEGATIVE); Cocaine,Urine NEGATIVE (NEGATIVE); Methadone,Urine NEGATIVE (NEGATIVE); Opiate,Urine NEGATIVE (NEGATIVE); PCP,Urine NEGATIVE (NEGATIVE); THC,Urine NEGATIVE (NEGATIVE)
[2024-08-21 04:06] LABS: INFLUENZA A NEGATIVE (NEGATIVE); INFLUENZA B NEGATIVE (NEGATIVE); RESPIRATORY SYNCTIAL VIRUS NEGATIVE (NEGATIVE); SARS-CoV-2 Xpert Express NEGATIVE (NEGATIVE)
--- NOTE | 2024-08-21 05:48 | PCM.HP ---
History of Present Illness - Chief Complaint Chief Complaint: CHF exacerbation/PNA History of Present Illness: is a 59 year old male with CHF who presents with one-week history of worsening cough, shortness of breath and in the ED found to have a pro-BNP >13K and a CTA was negative for a PE but did show basilar infiltrates possibly concerning for infection. He was given IV lasix 40 mg in the ED along with ceftriaxone. His urine was positive for meth. Pt denies drug use, fevers, nausea, vomiting, diarrhea. He does not take any medications he states. He denies chest pain. - Review of Systems Constitutional: No Fever, No Chills Eyes: No Symptoms Ears, Nose, & Throat: No Symptoms Respiratory: No Cough, No Short Of Breath Cardiac: No Chest Pain, No Edema, No Syncope Abdominal/Gastrointestinal: No Abdominal Pain, No Nausea, No Vomiting, No Diarrhea Genitourinary Symptoms: No Dysuria Musculoskeletal: No Back Pain, No Neck Pain Skin: No Rash Neurological: No Dizziness, No Focal Weakness, No Sensory Changes Psychological: No Symptoms Endocrine: No Symptoms Hematologic/Lymphatic: No Symptoms Immunological/Allergic: No Symptoms Medications & Allergies Home Medications: Home Medication List Ferrous Sulfate 325 mg [Feosol 325 mg] 325 mg PO DAILY 30 Days #30 tablet 07/28/24 [Rx Confirmed 08/21/24] Allergies/Adverse Reactions: Allergies Allergy/AdvReac Type Severity Reaction Status Date / Time No Known Drug Allergies Allergy Verified 08/21/24 00:47 - Past Medical History Past Medical History: Yes Neurological History: No Pertinent History ENT History: No Pertinent History Cardiac History: Arrhythmia, Congestive Heart Failure, Other Respiratory History: No Pertinent History Endocrine Medical History: No Pertinent History Musculoskelatal History: Degenerative Disk Disease GI Medical History: No Pertinent History History: No Pertinent History Pyscho-Social History: No Pertinent History Male Reproductive Disorders: No Pertinent History Comment: chf - Past Surgical History Past Surgical History: Yes Neuro Surgical History: No Pertinent History Cardiac History: Other Respiratory Surgery: No Pertinent History GI Surgical History: No Pertinent History Genitourinary Surgical Hx: No Pertinent History Musculskeletal Surgical Hx: Orthopedic Surgery Male Surgical History: No Pertinent History Other Surgical History: right knee. left leg - Social History Smoking Status: Former smoker How long have you smoked: years Exposure to second hand smoke: Yes Alcohol: Occasionally Drug Use: none - Social Determinants of Health Will the patient participate in the screening: Yes Do you worry about a steady place to live?: Yes Do you have any problems with any of the following?: No known problems In the past 12 months,have you had to go without utilities?: Yes Have you or anyone in your house had to go without enough: No Transportation Issues: Yes Has anyone in your support network made you feel unsafe?: No - Physical Exam Vital Signs: Vital Signs - 24 hr Temp Pulse Resp BP BP Pulse Ox 08/21/24 05:31 114 H 22 91 L 08/21/24 05:00 112 H 20 109/79 94 L 08/21/24 04:50 95 08/21/24 04:30 101/83 08/21/24 04:00 107 H 13 126/95 95 08/21/24 03:30 126 H 24 114/86 89 L 08/21/24 03:00 124 H 34 H 107/78 96 08/21/24 02:30 123 H 35 H 102/82 94 L 08/21/24 02:09 123 H 23 107/88 97 08/21/24 01:30 112/81 08/21/24 01:26 120 H 30 H 93 L 08/21/24 01:01 124 H 30 H 99/71 95 08/21/24 00:50 21 95 08/21/24 00:46 100.1 F 120 H 22 111/79 93 L 08/21/24 00:45 126 H 29 H 111/79 94 L General Appearance: no apparent distress, alert Neurologic Exam: alert, oriented x 3, cooperative, normal mood/affect, nml cerebellar function, nml station & gait, sensation nml, No motor deficits Eye Exam: PERRL/EOMI, eyes nml inspection Ears, Nose, Throat Exam: normal ENT inspection, TMs normal, pharynx normal, moist mucous membranes Neck Exam: normal inspection, non-tender, supple, full range of motion Respiratory Exam: normal breath sounds, lungs clear, No respiratory distress Cardiovascular Exam: regular rate/rhythm, normal heart sounds, normal peripheral pulses Gastrointestinal/Abdomen Exam: soft, normal bowel sounds, No tenderness, No mass Back Exam: normal inspection, normal range of motion, No CVA tenderness, No vertebral tenderness Extremity Exam: normal inspection, normal range of motion, pelvis stable Skin Exam: normal color, warm, dry, No rash Lymphatic Exam: No adenopathy Results - Labs Lab/Micro Results: Lab Results-Last 24 Hours 08/21/24 08/21/24 08/21/24 Range/Units 01:15 01:15 01:15 WBC 9.8 H (4.23-9.07) x10^3/uL RBC 4.03 L (4.63-6.08) x10^6/uL Hgb 12.1 L (13.7-17.5) g/dL Hct 37.3 L (40.1-51.0) % MCV 92.6 H (79.0-92.2) fL MCH 30.0 (25.7-32.2) pg MCHC 32.4 (32.3-36.5) g/dL RDW 14.0 (11.6-14.4) % Plt Count 201 (163-337) x10^3/uL MPV 10.7 (9.4-12.4) fL Gran % 72.7 H (34.0-67.9) % Immature Gran % (Auto) 0.3 (0.001-0.429) % Nucleat RBC Rel Count 0.0 (0.00-0.2) % Eos # (Auto) 0.08 (0.04-0.54) x10^3/uL Immature Gran # (Auto) 0.03 (0.001-0.031) x10^3u/L Absolute Lymphs (auto) 1.45 (1.32-3.57) x10^3/uL Absolute Monos (auto) 1.04 H (0.30-0.82) x10^3/uL Absolute Nucleated RBC 0.00 (0.00-0.012) x10^3u/L Lymphocytes % 14.9 L (21.8-53.1) % Monocytes % 10.7 (5.3-12.2) % Eosinophils % 0.8 (0.8-7.0) % Basophils % 0.6 (0.2-1.2) % Absolute Granulocytes 7.09 H (1.78-5.38) x10^3/uL Basophils # 0.06 (0.01-0.08) x10^3/uL D-Dimer 1.06 H* (0.0-0.50) mg/L Puncture Site pCO2 (35-45) mmHg pO2 (75-100) mmHg Base Excess (-2.0-2.0) O2 Saturation (94-100) g/dF ABG pH (7.35-7.45) ABG HCO3 (22-28) ABG O2 Sat (Measured) (95-100) % Shaun Test Hemoglobin Carboxyhemoglobin (0.0-6.9) % THgb Methemoglobin (1.4-1.5) % Temperature C POC O2 Flow Rate % Sodium 135 (135-145) mmol/L Potassium 4.9 (3.5-5.1) mmol/L Chloride 102 (98-107) mmol/L Carbon Dioxide 23 (22-30) mmol/L Anion Gap 14.8 (5-15) MEQ/L BUN 24 H (9-20) mg/dL Creatinine 1.27 H (0.66-1.25) mg/dL Estimated GFR 65.5 ML/MIN Glucose 125 H (74-106) mg/dL Calcium 9.1 (8.4-10.2) mg/dL Total Bilirubin 1.00 (0.2-1.3) mg/dL AST 140 H (17-59) U/L ALT 154 H (0-50) U/L Alkaline Phosphatase 94 (38-126) U/L Troponin I (0.000-0.033) ng/mL NT-Pro-B Natriuret Pep (<300) pg/mL Serum Total Protein 6.6 (6.3-8.2) g/dL Albumin 4.0 (3.5-5.0) g/dL Procalcitonin (0.030-0.080) ng/mL Urine Opiates Level (NEGATIVE) Ur Methadone (NEGATIVE) Urine Barbiturates (NEGATIVE) Ur Phencyclidine (PCP) (NEGATIVE) Urine Amphetamine (NEGATIVE) U Benzodiazepine Level (NEGATIVE) Urine Cocaine (NEGATIVE) Urine Marijuana (THC) (NEGATIVE) Influenza Type A Ag (NEGATIVE) Influenza Type B Ag (NEGATIVE) RSV (PCR) (NEGATIVE) SARS-CoV-2 (PCR) (NEGATIVE) 08/21/24 08/21/24 08/21/24 Range/Units 01:15 01:15 01:30 WBC (4.23-9.07) x10^3/uL RBC (4.63-6.08) x10^6/uL Hgb (13.7-17.5) g/dL Hct (40.1-51.0) % MCV (79.0-92.2) fL MCH (25.7-32.2) pg MCHC (32.3-36.5) g/dL RDW (11.6-14.4) % Plt Count (163-337) x10^3/uL MPV (9.4-12.4) fL Gran % (34.0-67.9) % Immature Gran % (Auto) (0.001-0.429) % Nucleat RBC Rel Count (0.00-0.2) % Eos # (Auto) (0.04-0.54) x10^3/uL Immature Gran # (Auto) (0.001-0.031) x10^3u/L Absolute Lymphs (auto) (1.32-3.57) x10^3/uL Absolute Monos (auto) (0.30-0.82) x10^3/uL Absolute Nucleated RBC (0.00-0.012) x10^3u/L Lymphocytes % (21.8-53.1) % Monocytes % (5.3-12.2) % Eosinophils % (0.8-7.0) % Basophils % (0.2-1.2) % Absolute Granulocytes (1.78-5.38) x10^3/uL Basophils # (0.01-0.08) x10^3/uL D-Dimer (0.0-0.50) mg/L Puncture Site pCO2 (35-45) mmHg pO2 (75-100) mmHg Base Excess (-2.0-2.0) O2 Saturation (94-100) g/dF ABG pH (7.35-7.45) ABG HCO3 (22-28) ABG O2 Sat (Measured) (95-100) % Shaun Test Hemoglobin Carboxyhemoglobin (0.0-6.9) % THgb Methemoglobin (1.4-1.5) % Temperature C POC O2 Flow Rate % Sodium (135-145) mmol/L Potassium (3.5-5.1) mmol/L Chloride (98-107) mmol/L Carbon Dioxide (22-30) mmol/L Anion Gap (5-15) MEQ/L BUN (9-20) mg/dL Creatinine (0.66-1.25) mg/dL Estimated GFR ML/MIN Glucose (74-106) mg/dL Calcium (8.4-10.2) mg/dL Total Bilirubin (0.2-1.3) mg/dL AST (17-59) U/L ALT (0-50) U/L Alkaline Phosphatase (38-126) U/L Troponin I 0.067 H* (0.000-0.033) ng/mL NT-Pro-B Natriuret Pep 60320 (<300) pg/mL Serum Total Protein (6.3-8.2) g/dL Albumin (3.5-5.0) g/dL Procalcitonin 0.106 H (0.030-0.080) ng/mL Urine Opiates Level (NEGATIVE) Ur Methadone (NEGATIVE) Urine Barbiturates (NEGATIVE) Ur Phencyclidine (PCP) (NEGATIVE) Urine Amphetamine (NEGATIVE) U Benzodiazepine Level (NEGATIVE) Urine Cocaine (NEGATIVE) Urine Marijuana (THC) (NEGATIVE) Influenza Type A Ag (NEGATIVE) Influenza Type B Ag (NEGATIVE) RSV (PCR) (NEGATIVE) SARS-CoV-2 (PCR) (NEGATIVE) 08/21/24 08/21/24 08/21/24 Range/Units 01:30 01:40 03:26 WBC (4.23-9.07) x10^3/uL RBC (4.63-6.08) x10^6/uL Hgb (13.7-17.5) g/dL Hct (40.1-51.0) % MCV (79.0-92.2) fL MCH (25.7-32.2) pg MCHC (32.3-36.5) g/dL RDW (11.6-14.4) % Plt Count (163-337) x10^3/uL MPV (9.4-12.4) fL Gran % (34.0-67.9) % Immature Gran % (Auto) (0.001-0.429) % Nucleat RBC Rel Count (0.00-0.2) % Eos # (Auto) (0.04-0.54) x10^3/uL Immature Gran # (Auto) (0.001-0.031) x10^3u/L Absolute Lymphs (auto) (1.32-3.57) x10^3/uL Absolute Monos (auto) (0.30-0.82) x10^3/uL Absolute Nucleated RBC (0.00-0.012) x10^3u/L Lymphocytes % (21.8-53.1) % Monocytes % (5.3-12.2) % Eosinophils % (0.8-7.0) % Basophils % (0.2-1.2) % Absolute Granulocytes (1.78-5.38) x10^3/uL Basophils # (0.01-0.08) x10^3/uL D-Dimer (0.0-0.50) mg/L Puncture Site RIGHT BRACHIAL pCO2 32 L (35-45) mmHg pO2 68 L (75-100) mmHg Base Excess -3.5 L (-2.0-2.0) O2 Saturation 92.7 L (94-100) g/dF ABG pH 7.41 (7.35-7.45) ABG HCO3 20.3 L (22-28) ABG O2 Sat (Measured) 94.3 L (95-100) % Shaun Test NOT APPLICABLE Hemoglobin 12.3 Carboxyhemoglobin 1.2 (0.0-6.9) % THgb Methemoglobin 0.5 L (1.4-1.5) % Temperature 37.0 C POC O2 Flow Rate 21 % Sodium (135-145) mmol/L Potassium 4.6 (3.5-5.1) mmol/L Chloride (98-107) mmol/L Carbon Dioxide (22-30) mmol/L Anion Gap (5-15) MEQ/L BUN (9-20) mg/dL Creatinine (0.66-1.25) mg/dL Estimated GFR ML/MIN Glucose (74-106) mg/dL Calcium (8.4-10.2) mg/dL Total Bilirubin (0.2-1.3) mg/dL AST (17-59) U/L ALT (0-50) U/L Alkaline Phosphatase (38-126) U/L Troponin I 0.067 H* (0.000-0.033) ng/mL NT-Pro-B Natriuret Pep (<300) pg/mL Serum Total Protein (6.3-8.2) g/dL Albumin (3.5-5.0) g/dL Procalcitonin (0.030-0.080) ng/mL Urine Opiates Level (NEGATIVE) Ur Methadone (NEGATIVE) Urine Barbiturates (NEGATIVE) Ur Phencyclidine (PCP) (NEGATIVE) Urine Amphetamine (NEGATIVE) U Benzodiazepine Level (NEGATIVE) Urine Cocaine (NEGATIVE) Urine Marijuana (THC) (NEGATIVE) Influenza Type A Ag NEGATIVE (NEGATIVE) Influenza Type B Ag NEGATIVE (NEGATIVE) RSV (PCR) NEGATIVE (NEGATIVE) SARS-CoV-2 (PCR) NEGATIVE (NEGATIVE) 08/21/24 Range/Units 03:31 WBC (4.23-9.07) x10^3/uL RBC (4.63-6.08) x10^6/uL Hgb (13.7-17.5) g/dL Hct (40.1-51.0) % MCV (79.0-92.2) fL MCH (25.7-32.2) pg MCHC (32.3-36.5) g/dL RDW (11.6-14.4) % Plt Count (163-337) x10^3/uL MPV (9.4-12.4) fL Gran % (34.0-67.9) % Immature Gran % (Auto) (0.001-0.429) % Nucleat RBC Rel Count (0.00-0.2) % Eos # (Auto) (0.04-0.54) x10^3/uL Immature Gran # (Auto) (0.001-0.031) x10^3u/L Absolute Lymphs (auto) (1.32-3.57) x10^3/uL Absolute Monos (auto) (0.30-0.82) x10^3/uL Absolute Nucleated RBC (0.00-0.012) x10^3u/L Lymphocytes % (21.8-53.1) % Monocytes % (5.3-12.2) % Eosinophils % (0.8-7.0) % Basophils % (0.2-1.2) % Absolute Granulocytes (1.78-5.38) x10^3/uL Basophils # (0.01-0.08) x10^3/uL D-Dimer (0.0-0.50) mg/L Puncture Site pCO2 (35-45) mmHg pO2 (75-100) mmHg Base Excess (-2.0-2.0) O2 Saturation (94-100) g/dF ABG pH (7.35-7.45) ABG HCO3 (22-28) ABG O2 Sat (Measured) (95-100) % Shaun Test Hemoglobin Carboxyhemoglobin (0.0-6.9) % THgb Methemoglobin (1.4-1.5) % Temperature C POC O2 Flow Rate % Sodium (135-145) mmol/L Potassium (3.5-5.1) mmol/L Chloride (98-107) mmol/L Carbon Dioxide (22-30) mmol/L Anion Gap (5-15) MEQ/L BUN (9-20) mg/dL Creatinine (0.66-1.25) mg/dL Estimated GFR ML/MIN Glucose (74-106) mg/dL Calcium (8.4-10.2) mg/dL Total Bilirubin (0.2-1.3) mg/dL AST (17-59) U/L ALT (0-50) U/L Alkaline Phosphatase (38-126) U/L Troponin I (0.000-0.033) ng/mL NT-Pro-B Natriuret Pep (<300) pg/mL Serum Total Protein (6.3-8.2) g/dL Albumin (3.5-5.0) g/dL Procalcitonin (0.030-0.080) ng/mL Urine Opiates Level NEGATIVE (NEGATIVE) Ur Methadone NEGATIVE (NEGATIVE) Urine Barbiturates NEGATIVE (NEGATIVE) Ur Phencyclidine (PCP) NEGATIVE (NEGATIVE) Urine Amphetamine POSITIVE A (NEGATIVE) U Benzodiazepine Level NEGATIVE (NEGATIVE) Urine Cocaine NEGATIVE (NEGATIVE) Urine Marijuana (THC) NEGATIVE (NEGATIVE) Influenza Type A Ag (NEGATIVE) Influenza Type B Ag (NEGATIVE) RSV (PCR) (NEGATIVE) SARS-CoV-2 (PCR) (NEGATIVE) - Radiology Impressions Radiology Exams & Impressions: Radiology Procedures Category Date Time Status CHEST 1 VIEW (PORTABLE) Stat Exams 08/21/24 01:11 Taken CHEST WITH CONTRAST [CT] Stat Exams 08/21/24 01:36 Completed - Other Procedures and Tests Respiratory Therapy 08/21/24 01:26 Respiratory Therapy Assessment DAILY 08/21/24 05:30 Oxygen Nasal Cannula 2 lpm 08/21/24 05:31 Respiratory Therapy Assessment DAILY Assessment/Plan (1) CHF exacerbation Current Visit: Yes Status: Acute Qualifiers: Heart failure type: unspecified Qualified Code(s): I50.9 - Heart failure, unspecified Assessment & Plan: 1. TTE 2. Lasix 40 mg IV in the ED just given, will assess response 3. Pt not taking BB or LAITH-I, can consider to add back during hospital stay Code(s): I50.9 - HEART FAILURE, UNSPECIFIED (2) Pneumonia Current Visit: Yes Status: Acute Qualifiers: Pneumonia type: due to unspecified organism Laterality: bilateral Lung location: unspecified part of lung Qualified Code(s): J18.9 - Pneumonia, unspecified organism Assessment & Plan: 1. Lasix IV 40 mg given in the ED 2. Pt is not on an BB and LAITH-I, can consider to add 3. TTE 4. Given ceftriaxone in the ED Code(s): J18.9 - PNEUMONIA, UNSPECIFIED ORGANISM Telemedicine Encounter - Telemedicine Encounter Telemedicine Encounter: "The entirety of this encounter was performed via Telemedicine" This visit was performed using real-time audio and video connection between my location and thepatients locationwith the assistance of a surrogateat the patients location. Written or verbal consent was obtained from the patient/guardian to perform this visit [facility]. Any patient questions regarding the telemedicine interaction were answered.
[2024-08-21] MEDS ORDERED: TYLENOL 325 MG PO PRN (07:52)
[2024-08-21] MEDS: Lasix 40 MG/4 ML IV SCH (08:47)
--- NOTE | 2024-08-21 08:49 | XRAY ---
Indication: Short of breath. Comparison: July 27, 2024 Portable chest demonstrates new diffuse patchy airspace disease, right greater than left.. Also new tiny bilateral effusions. Heart now borderline enlarged. Bony thorax intact.
[2024-08-21] MEDS: Protonix 40MG Tablet PO SCH (09:37)
[2024-08-21] MEDS: FEOSOL 325 MG PO SCH (09:37)
[2024-08-21] MEDS: Zithromax 500 MG/ 250 ML NaCl Premix 500 MG/250 ML IVPB IV SCH (09:37)
[2024-08-21] MEDS: HEPARIN 5000 UNITS/0.5 ML (HIGH RISK MED) SQ SCH (09:38)
[2024-08-21] MEDS ORDERED: Lasix 20 MG/2 ML IV SCH (10:00)
[2024-08-21] MEDS ORDERED: ROCEPHIN 1 GM / 100 ML NaCl 1 GM/100 ML IVPB IV SCH (10:00)
--- NOTE | 2024-08-21 19:59 | PCM.CONS ---
History of Present Illness - Date of Consult Date of Encounter: 08/21/24 Consulting Research Mechanic: MERRILL ALAS MD Requesting Provider: Attending Provider: BARB PATINO MD Primary Care Provider: PCP: NO FAMILY DOCTOR - Consult Narrative Reason for Consult: acute chf exacerbation HPI: Patient is a 59M with a history of HFrEF EF 25-30%, methamphetamine use, presents to the ER with worsening shortness of breath. He does not take GDMT for heart failure due to fear of side effects on various organs. He took meth within the past couple of days, smokes it. He has been out of his diuretic and has not taken it either. In the ED found to have BNP >13K, bilteral pulmonary infiltrates as well as pulmonary vascular congestion. Complains of orthopnea. No lower extremity edema. He feels better after getting a dose of IV Lasix and urinating. cc:: The requesting physician will be sent a copy of the consult. Review of Systems - Review of Systems All systems: as per HPI - Past Medical History Past Medical History: Yes Neurological History: No Pertinent History ENT History: No Pertinent History Cardiac History: Arrhythmia, Congestive Heart Failure, Other Respiratory History: No Pertinent History Endocrine Medical History: No Pertinent History Musculoskelatal History: Degenerative Disk Disease GI Medical History: No Pertinent History History: No Pertinent History Pyscho-Social History: No Pertinent History Male Reproductive Disorders: No Pertinent History Comment: chf - Past Surgical History Past Surgical History: Yes Neuro Surgical History: No Pertinent History Cardiac History: Other Respiratory Surgery: No Pertinent History GI Surgical History: No Pertinent History Genitourinary Surgical Hx: No Pertinent History Musculskeletal Surgical Hx: Orthopedic Surgery Male Surgical History: No Pertinent History Other Surgical History: right knee. left leg - Social History Smoking Status: Unknown if ever smoked How long have you smoked: years Exposure to second hand smoke: Yes Alcohol: Occasionally Drug Use: none - Social Determinants of Health Will the patient participate in the screening: Unable to obtain Do you worry about a steady place to live?: Yes Do you have any problems with any of the following?: No known problems In the past 12 months,have you had to go without utilities?: Yes Have you or anyone in your house had to go without enough: No Transportation Issues: Yes Has anyone in your support network made you feel unsafe?: No Medications & Allergies Home Medications: Home Medication List Ferrous Sulfate 325 mg [Feosol 325 mg] 325 mg PO DAILY 30 Days #30 tablet 07/28/24 [Rx Confirmed 08/21/24] Allergies/Adverse Reactions: Allergies Allergy/AdvReac Type Severity Reaction Status Date / Time No Known Drug Allergies Allergy Verified 08/21/24 00:47 Exam - Vitals Vital Signs: Vital Signs - 24 hr Temp Pulse Resp BP BP Pulse Ox 08/21/24 16:00 97.5 F 103 H 19 100/65 103 H 08/21/24 12:00 97.5 F 117 H 19 98/72 95 08/21/24 10:30 96 08/21/24 09:10 93 L 08/21/24 09:07 79 18 93 L 08/21/24 08:00 97.3 F 101 H 18 113/75 91 L 08/21/24 05:49 97.8 F 114 H 22 101/73 91 L 08/21/24 05:31 114 H 22 91 L 08/21/24 05:00 112 H 20 109/79 94 L 08/21/24 04:50 95 08/21/24 04:30 101/83 08/21/24 04:00 107 H 13 126/95 95 08/21/24 03:30 126 H 24 114/86 89 L 08/21/24 03:00 124 H 34 H 107/78 96 08/21/24 02:30 123 H 35 H 102/82 94 L 08/21/24 02:09 123 H 23 107/88 97 08/21/24 01:30 112/81 08/21/24 01:26 120 H 30 H 93 L 08/21/24 01:01 124 H 30 H 99/71 95 08/21/24 00:50 21 95 08/21/24 00:46 100.1 F 120 H 22 111/79 93 L 08/21/24 00:45 126 H 29 H 111/79 94 L General:: alert and oriented x 4, no acute distress HEENT: PERRLA, EOMI Cardiovascular Exam: regular rate/rhythm, normal heart sounds Respiratory Exam: diminished breath sounds, crackles/rales SpO2: 103 Oxygen Delivery: Room Air Gastrointestinal/Abdomen Exam: soft, normal bowel sounds Extremity Exam: normal inspection, warm, well perfused, No edema Results Vital Signs: Vital Signs - 24 hr Temp Pulse Resp BP BP Pulse Ox 08/21/24 16:00 97.5 F 103 H 19 100/65 103 H 08/21/24 12:00 97.5 F 117 H 19 98/72 95 08/21/24 10:30 96 08/21/24 09:10 93 L 08/21/24 09:07 79 18 93 L 08/21/24 08:00 97.3 F 101 H 18 113/75 91 L 08/21/24 05:49 97.8 F 114 H 22 101/73 91 L 08/21/24 05:31 114 H 22 91 L 08/21/24 05:00 112 H 20 109/79 94 L 08/21/24 04:50 95 08/21/24 04:30 101/83 08/21/24 04:00 107 H 13 126/95 95 08/21/24 03:30 126 H 24 114/86 89 L 08/21/24 03:00 124 H 34 H 107/78 96 08/21/24 02:30 123 H 35 H 102/82 94 L 08/21/24 02:09 123 H 23 107/88 97 08/21/24 01:30 112/81 08/21/24 01:26 120 H 30 H 93 L 08/21/24 01:01 124 H 30 H 99/71 95 08/21/24 00:50 21 95 08/21/24 00:46 100.1 F 120 H 22 111/79 93 L 08/21/24 00:45 126 H 29 H 111/79 94 L Pain Assessment - Last Documented Pain Intensity 0 Intake and Output: Intake & Output 08/19/24 08/20/24 08/21/24 08/22/24 11:59 11:59 11:59 11:59 Intake Total 120 490 Balance 120 490 Weight 75 kg LAB: I have reviewed the Labs in [facility]. Radiology Exams: Radiology Procedures Category Date Time Status CHEST 1 VIEW (PORTABLE) Stat Exams 08/21/24 01:11 Completed CHEST WITH CONTRAST [CT] Stat Exams 08/21/24 01:36 Completed - ECHO Echo: report reviewed by me (LVEF 25-30% Jul 2024) Multi-Disciplinary Progress Notes: Multi-Disciplinary Progress Notes 08/21/24 11:22 Case Management Note by Drea Joy S/W [facility] REGARDING HOMELESSNESS- THEY ALREADY RECEIVED A REFERRAL. 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 - Medications: none, given noncompliance - continue IV Lasix 40 mg BID - Goal -2 liters per day - Start entresto bid - Start metoprolol 25 mg daily - Outpatient follow up for GDMT uptitration - Drug avoidance counseled Code(s): I50.9 - HEART FAILURE, UNSPECIFIED (2) Pulmonary edema Current Visit: Yes Status: Acute Qualifiers: Chronicity: acute Qualified Code(s): J81.0 - Acute pulmonary edema Code(s): J81.1 - CHRONIC PULMONARY EDEMA (3) SOB (shortness of breath) Current Visit: Yes Status: Acute Code(s): R06.02 - SHORTNESS OF BREATH - Encounter Encounter: "The entirety of this encounter was performed via Telemedicine using audio and visual "
[2024-08-21] MEDS: ROCEPHIN 1 GM / 100 ML NaCl 1 GM/100 ML IVPB IV SCH (22:01)
[2024-08-22 05:09] LABS: Absolute Neutrophil Ct (ANC) 14.95 x10^3/uL (1.78-5.38); BASOPHIL % 0.1 % (0.2-1.2); Basophil (Absolute #) 0.02 x10^3/uL (0.01-0.08); Eosinophil (Absolute #) 0 x10^3/uL (0.04-0.54); Hematocrit 33.4 % (40.1-51.0); Hemoglobin 10.7 g/dL (13.7-17.5); IMMATURE GRAN # 0.11 x10^3u/L (0.001-0.031); IMMATURE GRAN % 0.7 % (0.001-0.429); Lymphocyte (Absolute #) 0.77 x10^3/uL (1.32-3.57); Lymphocytes % 4.6 % (21.8-53.1); Mean Cell Volume 92.8 fL (79.0-92.2); Mean Corpuscular Hemoglobin 29.7 pg (25.7-32.2); Mean Platelet Volume 10.7 fL (9.4-12.4); Monocyte (Absolute #) 0.98 x10^3/uL (0.30-0.82); Monocytes % 5.8 % (5.3-12.2); NUCLEATED RBC # 0.02 x10^3u/L (0.00-0.012); NUCLEATED RBC % 0.1 % (0.00-0.2); Neutrophil % 88.8 % (34.0-67.9); Platelet Count 194 x10^3/uL (163-337); Red Cell Distribution Width 14.2 % (11.6-14.4); White Blood Count 16.8 x10^3/uL (4.23-9.07)
--- NOTE | 2024-08-22 05:11 | PCM.NOTE ---
Date and Time: 08/22/24 7924 Subjective Assessment: HPI: is a 59 year old male with CHF who presents with one-week history of worsening cough, shortness of breath and in the ED found to have a pro-BNP >13K and a CTA was negative for a PE but did show basilar infiltrates possibly concerning for infection. He was given IV lasix 40 mg in the ED along with ceftriaxone. His urine was positive for meth. Pt denies drug use, fevers, nausea, vomiting, diarrhea. He does not take any medications he states. He denies chest pain. Cardiology consulted with recommendations to start entresto and metoprolol. Continue lasix. Discussed in length medication compliance. 08/22/24: Met with patient bedside. Endorses improvement in dyspnea. Cough more productiv e. Patient is concerned about discharge as he was recently told he has to leave his home and is supposed to be moving. Discussed initiation of entresto and metoprolol today per cardiology recommendations and the importance of compliance with prescribed medications. Patient verbalizes understanding. Denies fever, cp, abdominal pain, DUVALL, dizziness, N/V/D. - Review of Systems Constitutional: No Symptoms Eyes: No Symptoms Ears, Nose, & Throat: No Symptoms Respiratory: Cough, Short Of Breath Cardiac: No Symptoms Abdominal/Gastrointestinal: No Symptoms Genitourinary Symptoms: No Symptoms Musculoskeletal: No Symptoms Skin: No Symptoms Neurological: No Symptoms Psychological: No Symptoms Endocrine: No Symptoms Hematologic/Lymphatic: No Symptoms Immunological/Allergic: No Symptoms Objective Exam General Appearance: no apparent distress Neurologic Exam: alert, oriented x 3, cooperative Skin Exam: normal color Eye Exam: PERRL Ears, Nose, Throat Exam: normal ENT inspection Neck Exam: normal inspection Respiratory Exam: crackles/rales Cardiovascular Exam: tachycardia Gastrointestinal/Abdomen Exam: soft, normal bowel sounds Extremity Exam: normal inspection Back Exam: normal inspection Male Genitalia Exam: deferred Rectal Exam: deferred Objective Data Vital Signs: Vital Signs - 24 hr Temp Pulse Resp BP Pulse Ox 08/22/24 04:00 98.7 F 100 H 25 H 93/54 93 L 08/22/24 00:00 99.8 F 109 H 28 H 94/62 91 L 08/21/24 20:01 103 H 08/21/24 20:00 98.1 F 125 H 24 109/63 91 L 08/21/24 16:00 97.5 F 103 H 19 100/65 103 H 08/21/24 12:00 97.5 F 117 H 19 98/72 95 08/21/24 10:30 96 08/21/24 09:10 93 L 08/21/24 09:07 79 18 93 L 08/21/24 08:00 97.3 F 101 H 18 113/75 91 L 08/21/24 05:49 97.8 F 114 H 22 101/73 91 L 08/21/24 05:31 114 H 22 91 L Pain Assessment - Last Documented Pain Intensity 0 Intake and Output: Intake & Output 08/19/24 08/20/24 08/21/24 08/22/24 11:59 11:59 11:59 11:59 Intake Total 120 490 Output Total 200 Balance 120 290 Weight 75 kg Lab Results: Lab Results-Last 24 Hours 08/21/24 Range/Units 05:20 TSH 3rd Generation 1.226 (0.470-4.680) mIU/L Radiology Exams: Radiology Procedures Category Date Time Status CHEST 1 VIEW (PORTABLE) Stat Exams 08/21/24 01:11 Completed CHEST WITH CONTRAST [CT] Stat Exams 08/21/24 01:36 Completed Multi-Disciplinary Progress Notes: Multi-Disciplinary Progress Notes 08/21/24 11:22 Case Management Note by Drea Joy S/W ACO REGARDING HOMELESSNESS- THEY ALREADY RECEIVED A REFERRAL. PATIENT DECLINING ANY ASSISTANCE FROM CASE MANAGEMENT AT THIS TIME, SEE CM ASSESSMENT Initialized on 08/21/24 11:22 - END OF NOTE Assessment/Plan (1) CHF exacerbation Current Visit: Yes Status: Acute Qualifiers: Heart failure type: unspecified Qualified Code(s): I50.9 - Heart failure, unspecified Assessment & Plan: -CT chest reviewed showing Mild bilateral pleural effusion with basal subsegmental collapse of both lower lobes are seen Multifocal patchy ground-glass opacities are noted involving bilateral lungs ;more on right side - likely Infective. Diffuse smooth interlobular septal thickening are noted involving both lungs - possibility of pulmonary congestion. -Echo with EF of 25-30% -Lasix 40 bid -Patient non-compliant with home medications -discussed importance of compliance with prescribed medications -Cardiology consulted with recommendations to start entresto 24/26 BID and metoprolol 25mg daily -Advised cessation of substance abuse (amphetamines on UDS) - patient has denied drug use to [place] -UDS x 2 ( urrent/past hospitalization)[place] [address] -daily weights -strict I&O -elevate HOB Code(s): I50.9 - HEART FAILURE, UNSPECIFIED (2) Pneumonia Current Visit: Yes Status: Acute Qualifiers: Pneumonia type: due to unspecified organism Laterality: bilateral Lung lo cation: unspecified part of lung Qualified Code(s): J18.9 - Pneumonia, unspecified organism Assessment & Plan: -On RA- Supplemental oxygen as needed to maintain spo2 goal > 92% -nebs/INH -RT to follow -Ceftriaxone/azithromycin Code(s): J18.9 - PNEUMONIA, UNSPECIFIED ORGANISM (3) Substance abuse Current Visit: Yes Status: Acute Assessment & Plan: -UDS with amphetamines - advised cessation Code(s): F19.10 - OTHER PSYCHOACTIVE SUBSTANCE ABUSE, UNCOMPLICATED (4) Elevated d-dimer Current Visit: Yes Status: Acute Assessment & Plan: -CT negative for PE Code(s): R79.89 - OTHER SPECIFIED ABNORMAL FINDINGS OF BLOOD CHEMISTRY (5) Pulmonary edema Current Visit: Yes Status: Acute Qualifiers: Chronicity: acute Qualified Code(s): J81.0 - Acute pulmonary edema Assessment & Plan: -see plan for CHF Code(s): J81.1 - CHRONIC PULMONARY EDEMA (6) CKD (chronic kidney disease) Current Visit: Yes Status: Acute Assessment & Plan: -baseline creat around 1.2 - patient at baseline -avoid nephrotoxic medications -monitor renal/lytes daily Code(s): N18.9 - CHRONIC KIDNEY DISEASE, UNSPECIFIED (7) Elevated liver enzymes Current Visit: Yes Status: Acute Assessment & Plan: -LFT's reviewed on intial labs at ast 140 and alt 154 - continue to monitor -Hepatitis panel VTE: heparin PPI: protonix Dispo: 1-2 days Code(s): R74.8 - ABNORMAL LEVELS OF OTHER SERUM ENZYMES
[2024-08-22 05:31] LABS: ALBUMIN 3.5 g/dL (3.5-5.0); ANION GAP 10.8 MEQ/L (5-15); BILIRUBIN,TOTAL 0.6 mg/dL (0.2-1.3); Calcium 8.6 mg/dL (8.4-10.2); Creatinine 1 1.38 mg/dL (0.66-1.25); EST GLOMERULAR FILTRATION RATE 59.3 ML/MIN; Potassium 4.2 mmol/L (3.5-5.1); Total Protein 6.1 g/dL (6.3-8.2)
[2024-08-22] MEDS: Toprol-Xl 25MG Tablets PO SCH (18:55)
[2024-08-22] MEDS: ENTRESTO 49 MG-51 MG TABLET PO SCH (21:10)
--- NOTE | 2024-08-23 04:49 | PCM.NOTE ---
Date and Time: 08/23/24448 Subjective Assessment: HPI: is a 59 year old male with CHF who presents with one-week history of worsening cough, shortness of breath and in the ED found to have a pro-BNP >13K and a CTA was negative for a PE but did show basilar infiltrates possibly concerning for infection. He was given IV lasix 40 mg in the ED along with ceftriaxone. His urine was positive for meth. Pt denies drug use, fevers, nausea, vomiting, diarrhea. He does not take any medications he states. He denies chest pain. Cardiology consulted with recommendations to start entresto and metoprolol. Continue lasix. Discussed in length medication compliance. 08/22/24: Met with patient bedside. Endorses improvement in dyspnea. Cough more producti ve. Patient is concerned about discharge as he was recently told he has to leave his home and is supposed to be moving. Discussed initiation of entresto and metoprolol today per cardiology recommendations and the importance of compliance with prescribed medications. Patient verbalizes understanding. Denies fever, cp, abdominal pain, DUVALL, dizziness, N/V/D. Objective Data Vital Signs: Vital Signs - 24 hr Temp Pulse Resp BP Pulse Ox 08/23/24 04:00 99.1 F 92 H 17 85/56 93 L 08/23/24 00:00 99.4 F 103 H 18 86/47 93 L 08/22/24 20:00 99.4 F 113 H 19 91/59 95 08/22/24 16:00 97.8 F 108 H 18 97/61 94 L 08/22/24 12:00 98.1 F 121 H 17 100/71 93 L 08/22/24 08:21 93 L 08/22/24 07:23 98.1 F 106 H 16 106/63 93 L Pain Assessment - Last Documented Pain Intensity 0 Intake and Output: Intake & Output 08/20/24 08/21/24 08/22/24 08/23/24 11:59 11:59 11:59 11:59 Intake Total 120 1170 2260 Output Total 0065 9221 Balance 536 -931 -7751 Weight 75 kg 75.3 kg Lab Results: Lab Results-Last 24 Hours 08/22/24 08/22/24 Range/Units 04:50 04:50 WBC 16.8 H (4.23-9.07) x10^3/uL RBC 3.60 L (4.63-6.08) x10^6/uL Hgb 10.7 L (13.7-17.5) g/dL Hct 33.4 L (40.1-51.0) % MCV 92.8 H (79.0-92.2) fL MCH 29.7 (25.7-32.2) pg MCHC 32.0 L (32.3-36.5) g/dL RDW 14.2 (11.6-14.4) % Plt Count 194 (163-337) x10^3/uL MPV 10.7 (9.4-12.4) fL Gran % 88.8 H (34.0-67.9) % Immature Gran % (Auto) 0.7 H (0.001-0.429) % Nucleat RBC Rel Count 0.1 (0.00-0.2) % Eos # (Auto) 0 L (0.04-0.54) x10^3/uL Immature Gran # (Auto) 0.11 H (0.001-0.031) x10^3u/L Absolute Lymphs (auto) 0.77 L (1.32-3.57) x10^3/uL Absolute Monos (auto) 0.98 H (0.30-0.82) x10^3/uL Absolute Nucleated RBC 0.02 H (0.00-0.012) x10^3u/L Lymphocytes % 4.6 L (21.8-53.1) % Monocytes % 5.8 (5.3-12.2) % Eosinophils % 0.0 L (0.8-7.0) % Basophils % 0.1 L (0.2-1.2) % Absolute Granulocytes 14.95 H (1.78-5.38) x10^3/uL Basophils # 0.02 (0.01-0.08) x10^3/uL Sodium 136 (135-145) mmol/L Potassium 4.2 (3.5-5.1) mmol/L Chloride 100 (98-107) mmol/L Carbon Dioxide 29 (22-30) mmol/L Anion Gap 10.8 (5-15) MEQ/L BUN 37 H (9-20) mg/dL Creatinine 1.38 H (0.66-1.25) mg/dL Estimated GFR 59.3 ML/MIN Glucose 146 H (74-106) mg/dL Calcium 8.6 (8.4-10.2) mg/dL Total Bilirubin 0.60 (0.2-1.3) mg/dL AST 95 H (17-59) U/L ALT 152 H (0-50) U/L Alkaline Phosphatase 79 (38-126) U/L Serum Total Protein 6.1 L (6.3-8.2) g/dL Albumin 3.5 (3.5-5.0) g/dL Multi-Disciplinary Progress Notes: Multi-Disciplinary Progress Notes 08/22/24 12:45 Case Management Note by Drea Joy PATIENT CONTINUES TO DENY ANY NEW NEEDS AT TIME OF DC. HE REPORTS HE PLANS TO STAY WITH HIS DAD AT [place]. PATIENT REPORTS HE HAS MONEY FOR PRESCRIPTIONS AND FOOD AND GAS AT TIME OF [place]. ACO WENT TO TALK WITH PATIENT BUT HE REFUSED ANY ASSISTANCE Initialized on 08/22/24 12:45 - END OF NOTE Assessment/Plan (1) CHF exacerbation Current Visit: Yes Status: Acute Qualifiers: Heart failure type: unspecified Qualified Code(s): I50.9 - Heart failure, unspecified Assessment & Plan: -CT chest reviewed showing Mild bilateral pleural effusion with basal subsegmental collapse of both lower lobes are seen Multifocal patchy ground-glass opacities are noted involving bilateral lungs ;more on right side - likely Infective. Diffuse smooth interlobular septal thickening are noted involving both lungs - possibility of pulmonary congestion. -Echo with EF of 25-30% -Lasix 40 bid -Patient non-compliant with home medications -discussed importance of compliance with prescribed medications -Cardiology consulted with recommendations to start entresto 24/26 BID and metoprolol 25mg daily -Advised cessation of substance abuse (amphetamines on UDS) - patient has denied drug use to [place] -UDS x 2 ( urrent/past hospitalization)[place] [address] -daily weights -strict I&O -elevate HOB Code(s): I50.9 - HEART FAILURE, UNSPECIFIED (2) Pneumonia Current Visit: Yes Status: Acute Qualifiers: Pneumonia type: due to unspecified organism Laterality: bilateral Lung location: unspecified part of lung Qualified Code(s): J18.9 - Pneumonia, unspecified organism Assessment & Plan: -On RA- Supplemental oxygen as needed to maintain spo2 goal > 92% -nebs/INH -RT to follow -Ceftriaxone/azithromycin Code(s): J18.9 - PNEUMONIA, UNSPECIFIED ORGANISM (3) Substance abuse Current Visit: Yes Status: Acute Assessment & Plan: -UDS with amphetamines - advised cessation Code(s): F19.10 - OTHER PSYCHOACTIVE SUBSTANCE ABUSE, UNCOMPLICATED (4) Elevated d-dimer Current Visit: Yes Status: Acute Assessment & Plan: -CT negative for PE Code(s): R79.89 - OTHER SPECIFIED ABNORMAL FINDINGS OF BLOOD CHEMISTRY (5) Pulmonary edema Current Visit: Yes Status: Acute Qualifiers: Chronicity: acute Qualified Code(s): J81.0 - Acute pulmonary edema Assessment & Plan: -see plan for CHF Code(s): J81.1 - CHRONIC PULMONARY EDEMA (6) CKD (chronic kidney disease) Current Visit: Yes Status: Acute Assessment & Plan: -baseline creat around 1.2 - patient at baseline -avoid nephrotoxic medications -monitor renal/lytes daily Code(s): N18.9 - CHRONIC KIDNEY DISEASE, UNSPECIFIED (7) Elevated liver enzymes Current Visit: Yes Status: Acute Assessment & Plan: -LFT's reviewed on intial labs at ast 140 and alt 154 - continue to monitor -Hepatitis panel VTE: heparin PPI: protonix Dispo: 1-2 days Code(s): I50.9 - HEART FAILURE, UNSPECIFIED (2) Pneumonia Current Visit: Yes Status: Acute Qualifiers: Pneumonia type: due to unspecified organism Laterality: bilateral Lung location: unspecified part of lung Qualified Code(s): J18.9 - Pneumonia, unspecified organism Code(s): J18.9 - PNEUMONIA, UNSPECIFIED ORGANISM (3) Substance abuse Current Visit: Yes Status: Acute Code(s): F19.10 - OTHER PSYCHOACTIVE SUBSTANCE ABUSE, UNCOMPLICATED (4) Elevated d-dimer Current Visit: Yes Status: Acute Code(s): R79.89 - OTHER SPECIFIED ABNORMAL FINDINGS OF BLOOD CHEMISTRY (5) Pulmonary edema Current Visit: Yes Status: Acute Qualifiers: Chronicity: acute Qualified Code(s): J81.0 - Acute pulmonary edema Code(s): J81.1 - CHRONIC PULMONARY EDEMA (6) CKD (chronic kidney disease) Current Visit: Yes Status: Acute Code(s): N18.9 - CHRONIC KIDNEY DISEASE, UN SPECIFIED (7) Elevated liver enzymes Current Visit: Yes Status: Acute Code(s): R74.8 - ABNORMAL LEVELS OF OTHER SERUM ENZYMES
[2024-08-23 06:08] LABS: HBsAg Screen Negative (Negative); HCV Ab Non Reactive (Non Reactive); Hep B Core Ab, IgM Negative (Negative)
[2024-08-23 07:57] LABS: Hep A Ab, IgM Negative (Negative)
[2024-08-23 08:03] VITALS: BP 100/65; PULSE 95; RESP 16; TEMP 97.7; O2SAT 94
[2024-08-23 08:20] LABS: Absolute Neutrophil Ct (ANC) 8.04 x10^3/uL (1.78-5.38); BASOPHIL % 0.5 % (0.2-1.2); Basophil (Absolute #) 0.05 x10^3/uL (0.01-0.08); Eosinophil % 1.8 % (0.8-7.0); Eosinophil (Absolute #) 0.19 x10^3/uL (0.04-0.54); Hematocrit 37.9 % (40.1-51.0); IMMATURE GRAN # 0.07 x10^3u/L (0.001-0.031); IMMATURE GRAN % 0.7 % (0.001-0.429); Lymphocyte (Absolute #) 1.46 x10^3/uL (1.32-3.57); Lymphocytes % 13.8 % (21.8-53.1); Mean Corpuscular Hemoglobin 30.1 pg (25.7-32.2); Mean Corpuscular Hgb Concent. 31.7 g/dL (32.3-36.5); Mean Platelet Volume 10.2 fL (9.4-12.4); Monocyte (Absolute #) 0.78 x10^3/uL (0.30-0.82); Monocytes % 7.4 % (5.3-12.2); Neutrophil % 75.8 % (34.0-67.9); Platelet Count 225 x10^3/uL (163-337); Red Blood Count 3.99 x10^6/uL (4.63-6.08); Red Cell Distribution Width 14.2 % (11.6-14.4); White Blood Count 10.6 x10^3/uL (4.23-9.07)
[2024-08-23 08:33] LABS: ALBUMIN 3.6 g/dL (3.5-5.0); ANION GAP 9.8 MEQ/L (5-15); BILIRUBIN,TOTAL 0.5 mg/dL (0.2-1.3); Calcium 8.3 mg/dL (8.4-10.2); Creatinine 1 1.36 mg/dL (0.66-1.25); EST GLOMERULAR FILTRATION RATE 60.3 ML/MIN; Potassium 3.9 mmol/L (3.5-5.1); Total Protein 6.4 g/dL (6.3-8.2)
--- NOTE | 2024-08-23 12:25 | PCM.DS ---
Discharge Summary Date of Admission: 08/21/24 05:02 Date of Discharge: 08/23/24 Admitting Physician: BARB PATINO MD Consults: Consults on Case 08/21/24 01:[address] [facility] Referral ONCE 08/21/24 07:56 Consult Cardiology ROUTINE Primary Care Provider: NO FAMILY DOCTOR Allergies Allergies No Known Drug Allergies Allergy (Verified 08/21/24 00:47) Hospital Summary - Hospital Course Hospital Course: is a 59 year old male with CHF who presents with one-week history of worsening cough, shortness of breath and in the ED found to have a pro-BNP >13K and a CTA was negative for a PE but did show basilar infiltrates possibly concerning for infection. He was given IV lasix 40 mg in the ED along with ceftriaxone. His urine was positive for meth. Pt denies drug use, fevers, nausea, vomiting, diarrhea. He does not take any medications he states. He denies chest pain. Cardiology consulted with recommendations to start entresto and metoprolol. Continue lasix. Discussed in length medication compliance. Patient insistent on discharge for brother in laws today. Patient is on RA with no dyspnea. He would also like a new upholstery handler that comes to [place]. Discussed new medication regimen. Advised patient to keep BP and weight logs until follow up appt with cardiology. If he notices a weight gain of >3 lbs in one day or 5lbs in one week -he is to contact his upholstery handler. Patie nt agreeable to plan and requesting discharge. Will send home on lasix metoprolol, cefuroxime, and entresto per cardiology recommendations. Discharge Note Latest Assessment & Plan (1) CHF exacerbation Current Visit: Yes Status: Acute Qualifiers: Heart failure type: unspecified Qualified Code(s): I50.9 - Heart failure, unspecified Assessment & Plan: -CT chest reviewed showing Mild bilateral pleural effusion with basal subsegmental collapse of both lower lobes are seen Multifocal patchy ground-glass opacities are noted involving bilateral lungs ;more on right side - likely Infective. Diffuse smooth interlobular septal thickening are noted involving both lungs - possibility of pulmonary congestion. -Echo with EF of 25-30% -Lasix 40 bid -Patient non-compliant with home medications -discussed importance of compliance with prescribed medications -Cardiology consulted with recommendations to start entresto 24/ BID and metoprolol 25mg daily -Advised cessation of substance abuse (amphetamines on UDS) - patient has denied drug use to [place] -UDS x 2 ( urrent/past hospitalization)[place] [address] -daily weights -strict I&O -elevate HOB Code(s): I50.9 - HEART FAILURE, UNSPECIFIED (2) Pneumonia Current Visit: Yes Status: Acute Qualifiers: Pneumonia type: due to unspecified organism Laterality: bilateral Lung location: unspecified part of lung Qualified Code(s): J18.9 - Pneumonia, unspecified organism Assessment & Plan: -On RA- Supplemental oxygen as needed to maintain spo2 goal > 92% -nebs/INH -RT to follow -Ceftriaxone/azithromycin Code(s): J18.9 - PNEUMONIA, UNSPECIFIED ORGANISM (3) Substance abuse Current Visit: Yes Status: Acute Assessment & Plan: -UDS with amphetamines - advised cessation Code(s): F19.10 - OTHER PSYCHOACTIVE SUBSTANCE ABUSE, UNCOMPLICATED (4) Elevated d-dimer Current Visit: Yes Status: Acute Assessment & Plan: -CT negative for PE Code(s): R79.89 - OTHER SPECIFIED ABNORMAL FINDINGS OF BLOOD CHEMISTRY (5) Pulmonary edema Current Visit: Yes Status: Acute Qualifiers: Chronicity: acute Qualified Code(s): J81.0 - Acute pulmonary edema Assessment & Plan: -see plan for CHF Code(s): J81.1 - CHRONIC PULMONARY EDEMA (6) CKD (chronic kidney disease) Current Visit: Yes Status: Acute Assessment & Plan: -baseline creat around 1.2 - patient at baseline -avoid nephrotoxic medications -monitor renal/lytes daily Code(s): N18.9 - CHRONIC KIDNEY DISEASE, UNSPECIFIED (7) Elevated liver enzymes Current Visit: Yes Status: Acute Assessment & Plan: -LFT's reviewed on intial labs at ast 140 and alt 154 - continue to monitor -Hepatitis panel I spent 35 minutes [id number] with the patient on the day of discharge performing discharge exam, discussing hospital stay and discharge instructions with patient and caregivers, preparation of discharge records, prescriptions & referral forms and addressing any questions/concerns the patient had as documented above. - Vitals & Intake/Output Vital Signs: Vital Signs Temperature 97.7 F 08/23/24 08:00 Pulse Rate 95 H 08/23/24 08:00 Respiratory Rate 16 08/23/24 08:00 Blood Pressure 100/65 08/23/24 08:00 O2 Sat by Pulse Oximetry 94 L 08/23/24 08:00 Intake & Output: Intake & Output 08/21/24 08/22/24 08/23/24 08/24/24 11:59 11:59 11:59 11:59 Intake Total 120 1170 3160 Output Total 0020 6784 Balance 883 -638 -3186 Weight 75 kg 75.3 kg - Lab Result Diagrams: 08/23/24 08:16 08/23/24 08:16 Lab Results-Last 24 Hrs: Lab Results-Last 24 Hours 08/22/24 08/23/24 08/23/24 Range/Units 04:30 08:16 08:16 WBC 10.6 H (4.23-9.07) x10^3/uL RBC 3.99 L (4.63-6.08) x10^6/uL Hgb 12.0 L (13.7-17.5) g/dL Hct 37.9 L (40.1-51.0) % MCV 95.0 H (79.0-92.2) fL MCH 30.1 (25.7-32.2) pg MCHC 31.7 L (32.3-36.5) g/dL RDW 14.2 (11.6-14.4) % Plt Count 225 (163-337) x10^3/uL MPV 10.2 (9.4-12.4) fL Gran % 75.8 H (34.0-67.9) % Immature Gran % (Auto) 0.7 H (0.001-0.429) % Nucleat RBC Rel Count 0.0 (0.00-0.2) % Eos # (Auto) 0.19 (0.04-0.54) x10^3/uL Immature Gran # (Auto) 0.07 H (0.001-0.031) x10^3u/L Absolute Lymphs (auto) 1.46 (1.32-3.57) x10^3/uL Absolute Monos (auto) 0.78 (0.30-0.82) x10^3/uL Absolute Nucleated RBC 0.00 (0.00-0.012) x10^3u/L Lymphocytes % 13.8 L (21.8-53.1) % Monocytes % 7.4 (5.3-12.2) % Eosinophils % 1.8 (0.8-7.0) % Basophils % 0.5 (0.2-1.2) % Absolute Granulocytes 8.04 H (1.78-5.38) x10^3/uL Basophils # 0.05 (0.01-0.08) x10^3/uL Sodium 139 (135-145) mmol/L Potassium 3.9 (3.5-5.1) mmol/L Chloride 99 (98-107) mmol/L Carbon Dioxide 34 H (22-30) mmol/L Anion Gap 9.8 (5-15) MEQ/L BUN 35 H (9-20) mg/dL Creatinine 1.36 H (0.66-1.25) mg/dL Estimated GFR 60.3 ML/MIN Glucose 92 (74-106) mg/dL Calcium 8.3 L (8.4-10.2) mg/dL Total Bilirubin 0.50 (0.2-1.3) mg/dL AST 70 H (17-59) U/L ALT 130 H (0-50) U/L Alkaline Phosphatase 79 (38-126) U/L Serum Total Protein 6.4 (6.3-8.2) g/dL Albumin 3.6 (3.5-5.0) g/dL Hepatitis A IgM Ab Negative (Negative) Hep Bs Antigen Negative (Negative) Hep B Core IgM Ab Negative (Negative) Hep C Ab Signal/Cutoff Non Reactive (Non Reactive) Hepatitis C Interp Comment (.) - Procedures and Test Procedures and Tests throughout Hospitalization: Therapy Orders & Screens 08/21/24 01:26 Respiratory Therapy Assessment DAILY Comment: 08/21/24 05:30 Oxygen Nasal Cannula 2 lpm Comment: Diagnosis: CHF exacerbation 08/21/24 05:31 Respiratory Therapy Assessment DAILY Comment: Diagnosis: CHF exacerbation 08/21/24 06:08 ST Screen per Nursing Assess ONCE Comment: Protocol Order Physician Instructions: Greater than [address] Admission Screening Reason For Exam: Triggered on Admission Diagnosis: CHF exacerbation/PNEUMONIA CVA/Dysphagia/Aphasia: No Cognitive Deficits: No Dehydration/Nutrition Deficit: No Reflux: No Oral-Motor Difficulties: No Pneumonia: Yes [facility] Resident: No Total Points: 5 08/21/24 07:52 EKG REPEAT IN AM Comment: Diagnosis: CHF exacerbation/PNEUMONIA Respiratory Therapy Consult ONCE Comment: Reason For Exam: Diagnosis: CHF exacerbation/PNEUMONIA Discharge Exam General Appearance: no apparent distress Neurologic Exam: alert, oriented x 3, cooperative Eye Exam: PERRL Ears, Nose, Throat Exam: normal ENT inspection Neck Exam: normal inspection Respiratory Exam: normal breath sounds, lungs clear Cardiovascular Exam: regular rate/rhythm, normal heart sounds, pulse deficit Gastrointestinal/Abdomen Exam: soft Male Genitalia Exam: deferred Rectal Exam: deferred Extremity Exam: normal inspection Skin Exam: normal color Final Diagnosis/Problem List - Final Discharge Diagnosis/Problem (1) CHF exacerbation Current Visit: Yes Status: Acute Code(s): I50.9 - HEART FAILURE, UNSPECIFIED (2) Pneumonia Current Visit: Yes Status: Acute Code(s): J18.9 - PNEUMONIA, UNSPECIFIED ORGANISM (3) Substance abuse Current Visit: Yes Status: Acute Code(s): F19.10 - OTHER PSYCHOACTIVE SUBSTANCE ABUSE, UNCOMPLICATED (4) Elevated d-dimer Current Visit: Yes Status: Acute Code(s): R79.89 - OTHER SPECIFIED ABNORMAL FINDINGS OF BLOOD CHEMISTRY (5) Pulmonary edema Current Visit: Yes Status: Acute Code(s): J81.1 - CHRONIC PULMONARY EDEMA (6) CKD (chronic kidney disease) Current Visit: Yes Status: Acute Code(s): N18.9 - CHRONIC KIDNEY DISEASE, UNSPECIFIED (7) Elevated liver enzymes Current Visit: Yes Status: Acute Code(s): R74.8 - ABNORMAL LEVELS OF OTHER SERUM ENZYMES - Discharge Discharge Date: 08/23/24 Disposition: Home, Self-Care Condition: Stable Prescriptions: New Sacubitril/Valsartan [Entresto 49 mg-51 mg Tablet] 0.5 tablet PO BID 30 Days #30 tablet Furosemide 20 mg [Lasix 20 mg] 20 mg PO DAILY 30 Days #30 tablet Metoprolol Succinate 25 mg Xl* [Toprol-Xl 25MG Tablets] 25 mg PO DAILY 30 Days #30 tablet cefuroxime axetiL [Cefuroxime] 500 mg PO BID 7 Days #14 tablet Continue Ferrous Sulfate 325 mg [Feosol 325 mg] 325 mg PO DAILY 30 Days #30 tablet Follow up with: DOCTOR,NO FAMILY [Primary Care Provider] -
== END 2024-08-23 13:06 | disposition home or self-care (01) ==
LOC: ED 00:25 → MED SURG 05:02
PROVIDERS: ADMIT Student in an Organized Health Care Education/Training Program; ATTEND Student in an Organized Health Care Education/Training Program
DX: I50.9 Heart failure, unspecified (principal); J18.9 Pneumonia, unspecified organism; Z59.82 Transportation insecurity; Z59.12 Inadequate housing utilities; Z59.811 Housing instability, housed, with risk of homelessness; F15.90 Other stimulant use, unspecified, uncomplicated; R79.89 Other specified abnormal findings of blood chemistry; J81.0 Acute pulmonary edema; N18.9 Chronic kidney disease, unspecified; R74.8 Abnormal levels of other serum enzymes
CPT/HCPCS: 0241U; 36415; 36600; 71045; 71260; 80053; 80074; 80307; 82375; 82803; 83880; 84145; 84443; 84484; 85025; 85379; 93005; 94640; 94760; 96374; 96375; 99285; Q3014; 93268; J0456; J0696; J1644; J1940; J2405; J2919; Q0162; A9270-GY; G0378